=== PATIENT | female | born 1945 | race Caucasian/White ===

== ENCOUNTER 2016-12-29 12:30 | Outpatient (CLI) | payer MEDICARE, BC | END 2016-12-29 12:31 | disposition home or self-care (01) | DX: E11.9 Type 2 diabetes mellitus without complications (principal) ==

== ENCOUNTER 2017-01-27 14:32 | Outpatient (CLI) | payer MEDICARE, BC | END 2017-01-27 14:33 | disposition home or self-care (01) | DX: Z12.31 Encounter for screening mammogram for malignant neoplasm of breast (principal) ==

== ENCOUNTER 2017-11-10 12:47 | Emergency (ER) | payer MEDICARE, BC ==
[2017-11-10 13:05] LABS: BASOPHILS # (AUTO) 0.1 10^3/uL (0.0-0.1); BASOPHILS % (AUTO) 0.8 %; EOSINOPHILS # (AUTO) 0.2 10^3/uL (0.0-0.7); EOSINOPHILS % (AUTO) 1.2 %; HGB - HEMOGLOBIN 12.8 g/dL (12.0-16.0); LYMPHOCYTES % (AUTO) 14.4 %; MEAN CORPUSCULAR HEMOGLOBIN 30.8 pg (27.0-31.0); MEAN CORPUSCULAR HGB CONC 34.2 g/dL (32.0-36.0); MEAN PLATELET VOLUME 6.6 fL (7.9-10.8); MONOCYTES # (AUTO) 0.8 10^3/uL (0.0-1.0); MONOCYTES % (AUTO) 5.6 %; PLT - PLATELET COUNT 346 10^3/uL (130-450); RED BLOOD COUNT 4.16 10^6/uL (4.20-5.40); RED CELL DISTRIBUTION WIDTH 13.3 % (12.0-15.0); WHITE BLOOD COUNT 14.1 x10^3/uL (4.8-10.8)
[2017-11-10] MEDS ORDERED: MORPHINE 10 MG/ML VIAL IVP STA (13:14)
--- NOTE | 2017-11-10 13:14 | ED Physician Documentation ---
PD HPI CHEST PAIN - Stated complaint Stated Complaint: CHEST PX - Chief complaint Chief Complaint: Cardiac - History obtained from History obtained from: Patient, Family - History of Present Illness Timing - onset: How many days ago (2) Timing - onset during: Rest Timing - duration: Days (2) Timing - details: Gradual onset Pain level max: 7 Pain level now: 7 Quality: Aching, Dull Location: Substernal, Left chest Radiation: Other (L shoulder) Improved by: Rest Worsened by: Inspiration, Movement, Palpation Associated symptoms: Shortness of air (mild). No: Diaphoresis, Nausea, Vomiting , Feeling faint / dizzy, General Weakness, Palpitations, Cough Similar symptoms before: Has not had sx before Recently seen: Not recently seen - Additional information Additional information: states has had rhinorrhea and congestion recently. Patient is a non-smoker. No recent travel. No recent surgery or immobilization. Review of Systems Ten Systems: 10 systems reviewed and negative Constitutional: denies: Fever, Chills Ears: denies: Ear pain Nose: reports: Rhinorrhea / runny nose, Congestion Throat: denies: Sore throat GI: denies: Abdominal Pain, Nausea, Vomiting, Diarrhea Skin: denies: Rash Musculoskeletal: denies: Neck pain, Back pain Neurologic: denies: Focal weakness, Numbness, Headache PD PAST MEDICAL HISTORY - Past Medical History Cardiovascular: None Respiratory: Sleep apnea, CPAP use Neuro: None Endocrine/Autoimmune: None GI: GERD : None HEENT: None Psych: None Musculoskeletal: Gout, Other Derm: None - Past Surgical History 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 - Present Medications Home Medications: Ambulatory Orders Medication Instructions Recorded Confirmed Febuxostat [Uloric] 40 mg PO DAILY 04/27/13 11/10/17 Naproxen [Naprosyn] 250 mg PO DAILY PRN 04/27/13 11/10/17 Nebivolol HCl [Bystolic] 10 mg PO DAILY 04/27/13 11/10/17 Esomeprazole [NexIUM] 20 mg PO DAILY 07/03/13 11/10/17 Ranitidine HCl [Zantac] 150 mg PO DAILY 07/03/13 11/10/17 Escitalopram Oxalate [Lexapro] 20 mg PO DAILY 03/18/15 11/10/17 Meloxicam [Mobic] 7.5 mg PO BID PRN #20 tablet 11/10/17 - Allergies Allergies/Adverse Reactions: Allergies Allergy/AdvReac Type Severity Reaction Status Date / Time colchicine Allergy Severe Diarrhea Verified 11/10/17 12:57 Penicillins Allergy Intermediate Rash/Swelli Verified 11/10/17 12:57 ng sulfamethoxazole Allergy Intermediate Rash Verified 11/10/17 12:57 [From Bactrim] trimethoprim [From Bactrim] Allergy Intermediate Rash Verified 11/10/17 12:57 Gadolinium-Containing AdvReac Severe Nausea/Vomi Verified 11/10/17 12:57 Contrast Medi ting - Social History Does the pt smoke?: No Smoking Status: Never smoker PD ED PE NORMAL - Vitals Vital signs reviewed: Yes - General General: Alert and oriented X 3, No acute distress - HEENT HEENT: PERRL, Ears normal, Moist mucous membranes, Pharynx benign - Neck Neck: Supple, no meningeal sign, No JVD, No bruit - Cardiac Cardiac: RRR, Strong equal pulses - Respiratory Respiratory: No respiratory distress, Clear bilaterally - Abdomen Abdomen: Soft, Non tender, Non distended - Derm Derm: Warm and dry - Extremities Extremities: No edema, No calf tenderness / cord - Neuro Neuro: Alert and oriented X 3 - Psych Psych: Normal mood, Normal affect Results - Vitals Vitals: Vital Signs - 24 hr 11/10/17 11/10/17 12:52 13:47 Temperature 36.2 C L Heart Rate 81 78 Respiratory 22 18 Rate Blood Pressure 188/92 H 136/75 H O2 Saturation 96 95 Oxygen O2 Source Room air - EKG (time done) 1255 Rate: Rate (enter#) (82) Rhythm: NSR [place]: Normal Intervals: Normal OR QRS: Normal Ischemia: Normal ST segments - Labs Labs: Laboratory Tests 11/10/17 11/10/17 11/10/17 12:55 12:55 12:55 WBC 14.1 H RBC 4.16 L Hgb 12.8 Hct 37.5 MCV 90.0 MCH 30.8 MCHC 34.2 RDW 13.3 Plt Count 346 MPV 6.6 L Neut # 11.0 H Lymph # 2.0 [place] # 0.8 Eos # 0.2 Baso # 0.1 Absolute Nucleated RBC 0.01 Nucleated RBC % 0.0 D-Dimer Sodium 136 Potassium 4.2 Chloride 104 Carbon Dioxide 20 L Anion Gap 12.0 BUN 21 H Creatinine 1.1 H Estimated GFR (MDRD) 49 L Glucose 192 H Calcium 9.5 Total Bilirubin 0.5 AST 25 ALT 24 Alkaline Phosphatase 63 Troponin I < 0.04 Total Protein 7.6 Albumin 4.4 Globulin 3.2 Albumin/Globulin Ratio 1.4 Lipase 40 11/10/17 13:30 WBC RBC Hgb Hct MCV MCH MCHC RDW Plt Count MPV Neut # Lymph # [place] # Eos # Baso # Absolute Nucleated RBC Nucleated RBC % D-Dimer 248.5 Sodium Potassium Chloride Carbon Dioxide Anion Gap BUN Creatinine Estimated GFR (MDRD) Glucose Calcium Total Bilirubin AST ALT Alkaline Phosphatase Troponin I Total Protein Albumin Globulin Albumin/Globulin Ratio Lipase - Rads (name of study) cxr Radiology: Prelim report reviewed, EMP read contemporaneously, See rad report ( no acute disease) PD MEDICAL DECISION MAKING - ED course Complexity details: reviewed results, re-evaluated patient, considered differential (No ST elevation NE, no aortic dissection, no PE, no tension pneumothorax, no aortic aneurysm), d/w patient, d/w family ED course: Patient is a 72-year-old female presents to the emergency department with atypical chest pain for the past 2 days. Pain resolved with morphine, though still some pain with movement. We will place her on Mobic for home and follow- up with her doctor. No evidence of acute coronary syndrome, pulmonary embolus, aortic dissection, aortic aneurysm or pulmonary embolus. No pneumothorax. Patient counseled regarding signs and symptoms for which I believe and urgent re -evaluation would be necessary. Patient with good understanding of and agreement to plan and is comfortable going home at this time This document was made in part using voice recognition software. While efforts are made to proofread this document, sound alike and grammatical errors may occur. Departure - Departure Disposition: 01 Home, Self Care Clinical Impression: Atypical chest pain Condition: Good Instructions: ED Chest Pain Atypical Unkn Cause Follow-Up: Donnie Bush DO [Primary Care Provider] - Within 1 week Prescriptions: Meloxicam [Mobic] 7.5 mg PO BID PRN #20 tablet PRN Reason: Pain Comments: The cause of your pain is unclear today. Return if you worsen. Try the mobic instead of your naprosyn and see if this helps your pain. Discharge Date/Time: 11/10/17 15:00
[2017-11-10 13:23] LABS: ALBUMIN 4.4 g/dL (3.2-5.5); ALBUMIN/GLOBULIN RATIO 1.4 (1.0-2.2); BILIRUBIN,TOTAL 0.5 mg/dL (0.2-1.0); CALCIUM 9.5 mg/dL (8.5-10.3); CREATININE 1.1 mg/dL (0.4-1.0); TOTAL PROTEIN 7.6 g/dL (6.7-8.2)
--- NOTE | 2017-11-10 13:26 | XRAY Report ---
EXAM: CHEST RADIOGRAPHY EXAM DATE: 11/10/2017 01:09 PM. CLINICAL HISTORY: Chest pain. COMPARISON: None. TECHNIQUE: 1 view. FINDINGS: Lungs/Pleura: No definite localized infiltrate, consolidation, effusion, or pneumothorax. Mediastinum: Mild cardiomegaly. Tortuous and ectatic aorta. Upper lobe vessels not distended. Other: Degenerative changes. IMPRESSION: No acute disease. [facility] Referring Provider Line: [phone] SITE ID: [id number]
[2017-11-10 13:50] VITALS: BP 136/75
== END 2017-11-10 15:00 | disposition home or self-care (01) ==
LOC: ED 12:47
DX: R07.89 Other chest pain (principal)
CPT/HCPCS: 36415; 71045; 80053; 83690; 84484; 85025; 85379; 93005; 96374; 99283; 99284

== ENCOUNTER 2018-01-24 07:16 | Outpatient (CLI) | payer MEDICARE, BC ==
[2018-01-24 12:44] LABS: BASOPHILS # (AUTO) 0.1 10^3/uL (0.0-0.1); EOSINOPHILS # (AUTO) 0.2 10^3/uL (0.0-0.7); EOSINOPHILS % (AUTO) 3.4 %; HGB - HEMOGLOBIN 12.7 g/dL (12.0-16.0); LYMPHOCYTES # (AUTO) 1.6 10^3/uL (1.5-3.5); LYMPHOCYTES % (AUTO) 22.1 %; MEAN CORPUSCULAR HEMOGLOBIN 31.2 pg (27.0-31.0); MEAN CORPUSCULAR HGB CONC 34.3 g/dL (32.0-36.0); MEAN CORPUSCULAR VOLUME 90.9 fL (81.0-99.0); MONOCYTES # (AUTO) 0.6 10^3/uL (0.0-1.0); MONOCYTES % (AUTO) 8.5 %; NEUTROPHILS # (AUTO) 4.7 10^3/uL (1.5-6.6); PLT - PLATELET COUNT 274 10^3/uL (130-450); RED BLOOD COUNT 4.07 10^6/uL (4.20-5.40); RED CELL DISTRIBUTION WIDTH 13.5 % (12.0-15.0); WHITE BLOOD COUNT 7.2 x10^3/uL (4.8-10.8)
[2018-01-24 13:25] LABS: THYROID STIMULATING HORMONE 2.22 uIU/mL (0.34-5.60)
[2018-01-24 13:36] LABS: HB2 TOTAL 13.5 g/dL; HEMOGLOBIN A1C 0.68 g/dL; HEMOGLOBIN A1C % 6.8 % (4.6-6.2)
[2018-01-24 13:43] LABS: ALBUMIN 4.5 g/dL (3.2-5.5); ALBUMIN/GLOBULIN RATIO 1.9 (1.0-2.2); ALKALINE PHOSPHATASE 39 IU/L (42-121); ALT ALANINE AMINOTRANSFERASE 29 IU/L (10-60); AST ASPARTATE AMINOTRANSFERASE 29 IU/L (10-42); BILIRUBIN,TOTAL 0.4 mg/dL (0.2-1.0); BUN - BLOOD UREA NITROGEN 15 mg/dL (6-20); CALCIUM 9.4 mg/dL (8.5-10.3); CARBON DIOXIDE - CO2 20 mmol/L (21-32); CHLORIDE 107 mmol/L (101-111); CHOL/HDL RATIO 4.9 (<4.4); CHOLESTEROL 221 mg/dL; GFR - MDRD 54 (>89); GLUCOSE 166 mg/dL (70-100); HDL CHOLESTEROL 45 mg/dL; LDL CHOLESTEROL,CALCULATED 123 mg/dL; LDL/HDL RATIO 2.7 (<4.4); SODIUM 136 mmol/L (135-145); TOTAL PROTEIN 6.9 g/dL (6.7-8.2); VLDL CHOLESTEROL 53 mg/dL
== END 2018-01-24 07:17 | disposition home or self-care (01) ==
LOC: LAB.WCP 07:16
PROVIDERS: ATTEND Family Medicine
DX: I10 Essential (primary) hypertension (principal); E11.9 Type 2 diabetes mellitus without complications; E78.5 Hyperlipidemia, unspecified; M18.11 Unilateral primary osteoarthritis of first carpometacarpal joint, right hand
CPT/HCPCS: 36415; 80053; 80061; 82607; 83036; 83721; 84443; 85025

== ENCOUNTER 2018-02-21 12:44 | Outpatient (CLI) | payer MEDICARE, BC ==
--- NOTE | 2018-02-22 10:23 | Mammography Report ---
DIGITAL SCREENING MAMMOGRAM: 02/21/2018 CLINICAL INDICATION: A 72-year-old for screening. COMPARISON: 01/2017, 03/2015, 03/2014, 11/2012, 09/2011, 08/2010. TECHNIQUE: Routine CC and MLO projections were obtained of the breasts. FINDINGS: The breasts again demonstrate scattered fibroglandular densities bilaterally. Coarse and punctate, typically benign calcifications are present. No suspicious masses, clustered microcalcifications, or regions of architectural distortion are identified. IMPRESSION: BENIGN FINDINGS. RECOMMENDATION: Routine annual screening unless otherwise clinically indicated. BIRADS CATEGORY 2 - BENIGN FINDINGS. STANDARD QUALIFYING STATEMENTS: 1. This examination was reviewed with the aid of Computer-Aided Detection (CAD). 2. A negative or benign imaging report should not delay biopsy if clinically suspicious findings are present. Consider surgical consultation if warranted. More than 5% of cancers are not identified by imaging. 3. Dense breasts may obscure an underlying neoplasm. TD: 02/22/2018 10:22
== END 2018-02-21 12:45 | disposition home or self-care (01) ==
LOC: DI 12:44
PROVIDERS: ATTEND Family Medicine
DX: Z12.31 Encounter for screening mammogram for malignant neoplasm of breast (principal)
CPT/HCPCS: 77067

== ENCOUNTER 2018-02-21 12:47 | Outpatient (CLI) | payer MEDICARE, BC ==
--- NOTE | 2018-02-21 16:05 | DEXA Report ---
DEXA SCAN: 02/21/2018 CLINICAL INDICATION: Postmenopausal. TECHNIQUE: Dual energy x-ray absorptiometry (DXA) was performed on a [employer] system. Regions measured are the AP spine, femoral neck, and, if needed, forearm. COMPARISON: None. In accordance with the International Society for Clinical Densitometry (ISCD) guidelines, data from previous exams may be reanalyzed using current recommendations and techniques. This is done to allow a more accurate basis for comparison with the current study. FINDINGS Data for the lumbar spine is as follows: REGION BMD (g/cm/cm) T-SCORE Z-SCORE L1 1.686 4.6 5.6 L2 1.656 3.8 4.8 L3 1.460 2.2 3.1 L4 1.528 2.7 3.7 L1-L4 1.578 3.3 4.3 L2-L4 1.547 2.9 3.9 NOTE: All evaluable vertebrae are used for classification. Data for the hip is as follows: REGION BMD (g/cm/cm) T-SCORE Z-SCORE Neck 1.044 0.0 1.5 TOTAL 1.192 1.5 2.6 NOTE: The femoral neck or total proximal femur, whichever is lowest, is used for classification. IMPRESSION WHO CLASSIFICATION BASED ON THE INTERNATIONAL REFERENCE STANDARD IS NORMAL. FRACTURE RISK IS NOT INCREASED. RECOMMENDATION: Patients with diagnosis of osteoporosis or osteopenia should have regular bone mineral density assessment. For those eligible for Medicare, routine testing is allowed once every 2 years. Testing frequency can be increased for patients who have rapidly progressing disease or for those who are receiving medical therapy to restore bone mass. COMMENT World Health Organization (WHO) definitions for osteoporosis and osteopenia: NORMAL BMD: T-score at 1.0 or higher, fracture risk is low. OSTEOPENIA BMD: T-score between 1.0 and -2.5, fracture risk is increased. OSTEOPOROSIS BMD: T-score at 2.5 or lower, fracture risk high. National Osteoporosis Foundation recommends: 1. Obtain adequate dietary calcium (at least 1200 mg per day) and vitamin D (400 -800 international units per day). 2. Participate, as appropriate, in regular weightbearing and muscle- strengthening exercise. 3. Avoid tobacco use and reduce alcohol and caffeine intake. 4. For more detailed information see the website at www.NOF.org. TD: 02/21/2018 15:05 MTDKaya
== END 2018-02-21 12:48 | disposition home or self-care (01) ==
LOC: DI 12:47
PROVIDERS: ATTEND Family Medicine
DX: Z78.0 Asymptomatic menopausal state (principal)
CPT/HCPCS: 77080

== ENCOUNTER → 2018-09-19 | Outpatient (CLI) | payer MEDICARE, BC ==
[2018-09-19 13:10] LABS: BASOPHILS % (AUTO) 0.6 %; EOSINOPHILS # (AUTO) 0.2 10^3/uL (0.0-0.7); EOSINOPHILS % (AUTO) 3.3 %; HGB - HEMOGLOBIN 12.9 g/dL (12.0-16.0); LYMPHOCYTES # (AUTO) 1.7 10^3/uL (1.5-3.5); LYMPHOCYTES % (AUTO) 23.4 %; MEAN CORPUSCULAR HEMOGLOBIN 31.4 pg (27.0-31.0); MEAN CORPUSCULAR HGB CONC 33.4 g/dL (32.0-36.0); MEAN CORPUSCULAR VOLUME 93.8 fL (81.0-99.0); MEAN PLATELET VOLUME 7.5 fL (7.9-10.8); MONOCYTES # (AUTO) 0.6 10^3/uL (0.0-1.0); MONOCYTES % (AUTO) 8.6 %; NEUTROPHILS # (AUTO) 4.7 10^3/uL (1.5-6.6); NEUTROPHILS % (AUTO) 64.1 %; PLT - PLATELET COUNT 322 10^3/uL (130-450); RED BLOOD COUNT 4.12 10^6/uL (4.20-5.40); RED CELL DISTRIBUTION WIDTH 13.4 % (12.0-15.0); WHITE BLOOD COUNT 7.4 x10^3/uL (4.8-10.8)
[2018-09-19 13:55] LABS: ALBUMIN 4.4 g/dL (3.2-5.5); ALBUMIN/GLOBULIN RATIO 1.7 (1.0-2.2); ALKALINE PHOSPHATASE 47 IU/L (42-121); ALT ALANINE AMINOTRANSFERASE 25 IU/L (10-60); AST ASPARTATE AMINOTRANSFERASE 26 IU/L (10-42); BILIRUBIN,TOTAL 0.5 mg/dL (0.2-1.0); BUN - BLOOD UREA NITROGEN 18 mg/dL (6-20); CALCIUM 9.4 mg/dL (8.5-10.3); CARBON DIOXIDE - CO2 22 mmol/L (21-32); CHLORIDE 107 mmol/L (101-111); CHOL/HDL RATIO 3.6 (<4.4); CHOLESTEROL 161 mg/dL; CREATININE 1.1 mg/dL (0.4-1.0); GFR - MDRD 48 (>89); GLUCOSE 185 mg/dL (70-100); HDL CHOLESTEROL 45 mg/dL; LDL CHOLESTEROL,CALCULATED 74 mg/dL; LDL/HDL RATIO 1.6 (<4.4); SODIUM 138 mmol/L (135-145); VLDL CHOLESTEROL 42 mg/dL
[2018-09-19 13:57] LABS: HB2 TOTAL 13.5 g/dL; HEMOGLOBIN A1C 0.72 g/dL
== END ==
LOC: LAB.WCP 08:00
PROVIDERS: ATTEND Family Medicine
DX: E11.9 Type 2 diabetes mellitus without complications (principal)
CPT/HCPCS: 36415; 80053; 80061; 82043; 83036; 83721; 85025

== ENCOUNTER 2019-03-02 07:03 | Day surgery (SDC) | payer MEDICARE, BC ==
[~2019-03-02 07:03] MED LIST: CYCLOPENTOLATE 1% OPHTH DROPS 2 ML ONE; KETOROLAC 0.45% OPHTH DROPS ONE; PHENYLEPHRINE 2.5% OPHTH 2 ML DROPS ONE; PROPARACAINE 0.5% OPHTH DROPS 15 ML ONE
[2019-03-02] MEDS ORDERED: LACTATED RINGERS 500 ML IV ONE (07:22)
[2019-03-02] MEDS ORDERED: KETOROLAC 0.45% OPHTH DROPS RIGHTEYE ONE (07:30)
[2019-03-02] MEDS ORDERED: CYCLOPENTOLATE 1% OPHTH DROPS 2 ML RIGHTEYE ONE (07:30)
[2019-03-02] MEDS ORDERED: PHENYLEPHRINE 2.5% OPHTH 2 ML DROPS RIGHTEYE ONE (07:30)
[2019-03-02] MEDS ORDERED: PROPARACAINE 0.5% OPHTH DROPS 15 ML RIGHTEYE ONE (07:30)
--- NOTE | 2019-03-02 07:58 | ANESTHESIA ---
Pre-Anesthesia VS, & Labs - Diagnosis Right senile combined cataract - Procedure Right phaco with IOL implant Vital Signs: Temp Pulse Resp BP Pulse Ox 36.9 C 74 15 142/86 H 94 03/02/19 07:22 03/02/19 07:22 03/02/19 07:22 03/02/19 07:22 03/02/19 07:22 Height 5 ft 4 in Weight (kg) 89 kg Body Mass Index 30.9 - NPO >8 hours - Is Patient ?: No - Lab Results Current Lab Results: Laboratory Tests 03/02/19 07:34: POC Whole Bld Glucose 258 H Lab results reviewed: No Home Medications and Allergies Home Medications: Ambulatory Orders Nebivolol HCl [Bystolic] 10 mg PO DAILY 03/01/19 Pravastatin Sodium 20 mg PO DAILY 03/01/19 buPROPion [Wellbutrin Xl] 300 mg PO DAILY 03/01/19 Febuxostat [Uloric] 40 mg PO DAILY 04/27/13 Nebivolol HCl [Bystolic] 10 mg PO DAILY 04/27/13 Esomeprazole [NexIUM] 20 mg PO DAILY 07/03/13 Ranitidine HCl [Zantac] 150 mg PO DAILY 07/03/13 Escitalopram Oxalate [Lexapro] 20 mg PO DAILY 03/18/15 Nebivolol HCl [Bystolic] 10 mg PO DAILY 03/01/19 Pravastatin Sodium 20 mg PO DAILY 03/01/19 buPROPion [Wellbutrin Xl] 300 mg PO DAILY 03/01/19 Allergies/Adverse Reactions: Allergies Allergy/AdvReac Type Severity Reaction Status Date / Time colchicine Allergy Severe Diarrhea Verified 11/10/17 12:57 Penicillins Allergy Intermediate Rash/Swelli Verified 11/10/17 12:57 ng sulfamethoxazole Allergy Intermediate Rash Verified 11/10/17 12:57 [From Bactrim] trimethoprim [From Bactrim] Allergy Intermediate Rash Verified 11/10/17 12:57 Gadolinium-Containing AdvReac Severe Nausea/Vomi Verified 11/10/17 12:57 Contrast Medi ting Anes History & Medical History - Anesthetic History Anesthesia Complications: reports: No previous complications Family history of Anesthesia Complications: Denies Family history of Malignant Hyperthermia: Denies - Medical History Cardiovascular: reports: Hypertension, High cholesterol Pulmonary: reports: Shortness of breath, Sleep apnea, CPAP use Gastrointestinal: reports: GERD Urinary: reports: None Neuro: reports: None Musculoskeletal: reports: None, Gout, Other Endocrine/Autoimmune: reports: None Blood Disorders: reports: None Skin: reports: None Smoking Status: Never smoker Psychosocial: reports: No issues indicated - Surgical History General: Cholecystectomy, Other Gynecologic:  Orthopedic: Other (Right humerus) Exam General: Alert, Oriented x3 Dental: Dentures full Upper, Partials Lower Mouth Opening: Greater than 4 Fingerbreadths Neck Mobility: Normal Mallampati classification: II Thyromental Distance: greater than 6 cm Respiratory: Lungs clear Cardiovascular: Regular rate Neurological: Normal gait Mental/Cognitive Status: Alert/Oriented X3 Cognitive Status: Within normal limits Plan Anesthesia Type: MAC Consent for Procedure(s) Verified and Reviewed: Yes Code Status: Attempt Resuscitation ASA classification: 2-Mild systemic disease Is this case an emergency?: No
[2019-03-02] MEDS ORDERED: fentaNYL 100 MCG/2 ML VIAL IVP ONE (08:30)
[2019-03-02] MEDS ORDERED: MIDAZOLAM 2 MG/2 ML VIAL IVP ONE (08:30)
[2019-03-02] MEDS ORDERED: TRIAMCIN/MOXIFLOX OPHTHALMIC 0.6 ML VIAL IO ONE ×2 (08:40)
[2019-03-02] MEDS ORDERED: CHONDR SULF/HYALURONATE SYRINGE IO ONE (08:40)
[2019-03-02] MEDS ORDERED: EPINEPHrine 1 MG/ML AMP IVP ONE (08:40)
[2019-03-02] MEDS ORDERED: VANCOMYCIN OPHTHALMI 8MG/0.8ML 8 MG/0.8 ML SYRINGE IO ONE ×2 (08:40)
[2019-03-02] MEDS ORDERED: TIMOLOL 0.5% OPHTH DROPS RIGHTEYE ONE (08:40)
[2019-03-02] MEDS ORDERED: BSS/LIDOCAINE/EPINEPHRINE 1 ML SYRINGE IO ONE ×2 (08:40)
[2019-03-02] MEDS ORDERED: BRIMONIDINE 0.2% OPHTH DROPS 5 ML OPTH ONE (08:40)
[2019-03-02 08:58] VITALS: BP 122/57
--- NOTE | 2019-03-02 10:42 | OPERATIVE REPORT ---
DATE OF SERVICE: 03/02/2019 Physician: Roman Stout MD PREOPERATIVE DIAGNOSIS: Visually significant cataract, right eye. This was her first cataract surge ry. POSTOPERATIVE DIAGNOSIS: Visually significant cataract, right eye. This was her first with surgery. DESCRIPTION OF PROCEDURE: Phacoemulsification with posterior chamber intraocular lens implant, right eye. SURGEON: Roman Stout MD ANESTHESIA: Monitored anesthesia care. COMPLICATIONS: None. OPERATIVE INDICATIONS: This is a 73-year-old woman with progressive vision loss in the right eye due to 2+ nuclear sclerotic and 2 to 3+ cortical cataract. Best corrected visual acuity was 20/25, with glare to hand motion vision in the right eye. Indications for surgery are overall decrease in visio n, difficulty seeing words on the computer screen, difficulty reading, difficulty seeing words, close d captions or game scores on TV, difficulty seeing street signs, difficulty driving in low light or a t night, difficulty driving at night because of headlights from other vehicles, and difficulty with g lare and bright lights in any situation. She was consented at length concerning risks and benefits o f cataract surgery, after which she expressed a desire to proceed with surgery. OPERATIVE PROCEDURE: The patient was taken to OR #3 and placed under monitored anesthesia care. A s urgical timeout was conducted confirming the correct patient, correct procedure, and correct surgical site. She was given topical anesthesia, then prepped and draped in the usual sterile fashion. The eye was entered at the 12 and 9 o'clock positions. Intracameral Shugarcaine was injected into the an terior chamber, followed by Viscoat. A continuous-tear curvilinear capsulorrhexis was performed. Th e nucleus was hydrodissected and phacoemulsified. The cortex was evacuated using automated infusion and aspiration. Provisc was injected into the capsular bag, and a 21.0 diopter intraocular lens inse rted in the bag. Approximately 0.8 mL of a mixture of triamcinolone moxifloxacin and vancomycin was injected subconjunctivally at the superior quadrant for infection and inflammation prophylaxis. I an d A was used to evacuate the viscoelastic materials. The eye was inflated to physiologic pressure us ing balanced salt solution and found to be watertight. The patient was taken from the operating room in good condition and given postoperative instructions. TD: 03/02/2019 09:55
== END 2019-03-02 07:04 | disposition home or self-care (01) ==
LOC: SDS 07:03
PROVIDERS: ATTEND Ophthalmology
PROC: 08RJ3JZ Replacement of Right Lens with Synthetic Substitute, Percutaneous Approach (ICD-10-PCS; principal; 2019-03-02 08:30)
DX: H25.811 Combined forms of age-related cataract, right eye (principal); I10 Essential (primary) hypertension; E11.9 Type 2 diabetes mellitus without complications; G47.33 Obstructive sleep apnea (adult) (pediatric); K21.9 Gastro-esophageal reflux disease without esophagitis
CPT/HCPCS: 66984; A9270; J3490; V2632

== ENCOUNTER 2019-03-14 07:11 | Outpatient (CLI) | payer MEDICARE, BC ==
[2019-03-14 12:30] LABS: BASOPHILS # (AUTO) 0.1 10^3/uL (0.0-0.1); BASOPHILS % (AUTO) 0.8 %; EOSINOPHILS # (AUTO) 0.3 10^3/uL (0.0-0.7); EOSINOPHILS % (AUTO) 3.1 %; HGB - HEMOGLOBIN 12.8 g/dL (12.0-16.0); LYMPHOCYTES # (AUTO) 1.6 10^3/uL (1.5-3.5); LYMPHOCYTES % (AUTO) 17.5 %; MEAN CORPUSCULAR HEMOGLOBIN 30.4 pg (27.0-31.0); MEAN CORPUSCULAR HGB CONC 32.6 g/dL (32.0-36.0); MEAN CORPUSCULAR VOLUME 93.4 fL (81.0-99.0); MEAN PLATELET VOLUME 7.2 fL (7.9-10.8); MONOCYTES # (AUTO) 0.8 10^3/uL (0.0-1.0); MONOCYTES % (AUTO) 8.8 %; NEUTROPHILS # (AUTO) 6.3 10^3/uL (1.5-6.6); NEUTROPHILS % (AUTO) 69.8 %; PLT - PLATELET COUNT 333 10^3/uL (130-450); RED CELL DISTRIBUTION WIDTH 13.4 % (12.0-15.0)
[2019-03-14 13:22] LABS: ALBUMIN 4.1 g/dL (3.2-5.5); ALBUMIN/GLOBULIN RATIO 1.4 (1.0-2.2); ALKALINE PHOSPHATASE 46 IU/L (42-121); ALT ALANINE AMINOTRANSFERASE 21 IU/L (10-60); AST ASPARTATE AMINOTRANSFERASE 24 IU/L (10-42); BILIRUBIN,TOTAL 0.5 mg/dL (0.2-1.0); BUN - BLOOD UREA NITROGEN 24 mg/dL (6-20); CALCIUM 9.7 mg/dL (8.5-10.3); CARBON DIOXIDE - CO2 20 mmol/L (21-32); CHLORIDE 105 mmol/L (101-111); CHOL/HDL RATIO 4.1 (<4.4); CHOLESTEROL 173 mg/dL; CREATININE 1.1 mg/dL (0.4-1.0); GFR - MDRD 48 (>89); GLUCOSE 231 mg/dL (70-100); HDL CHOLESTEROL 42 mg/dL; LDL CHOLESTEROL,CALCULATED 82 mg/dL; SODIUM 137 mmol/L (135-145); URIC ACID 5.2 mg/dL (2.6-7.2); VLDL CHOLESTEROL 49 mg/dL
[2019-03-14 13:34] LABS: HB2 TOTAL 13.4 g/dL; HEMOGLOBIN A1C 0.78 g/dL; HEMOGLOBIN A1C % 7.5 % (4.6-6.2)
== END 2019-03-14 07:12 | disposition home or self-care (01) ==
LOC: LAB.WCP 07:11
PROVIDERS: ATTEND Family Medicine
DX: E11.9 Type 2 diabetes mellitus without complications (principal)
CPT/HCPCS: 36415; 80053; 80061; 83036; 83721; 84443; 84550; 85025

== ENCOUNTER 2019-03-23 13:34 | Outpatient (CLI) | payer MEDICARE, BC ==
[2019-03-27 19:27] LABS: ANA SCREEN POSITIVE (NEGATIVE)
== END 2019-03-23 13:35 | disposition home or self-care (01) ==
LOC: LAB.WCP 13:34
PROVIDERS: ATTEND Family Medicine
DX: R94.138 Abnormal results of other function studies of peripheral nervous system (principal); Z13.89 Encounter for screening for other disorder
CPT/HCPCS: 36415; 82550; 85651; 86038; 86140; 86765

== ENCOUNTER 2019-04-06 06:32 | Day surgery (SDC) | payer MEDICARE, BC ==
[2019-04-06] MEDS ORDERED: KETOROLAC 0.45% OPHTH DROPS ONE (06:37)
[2019-04-06] MEDS ORDERED: PHENYLEPHRINE 2.5% OPHTH 2 ML DROPS ONE (06:37)
[2019-04-06] MEDS ORDERED: PROPARACAINE 0.5% OPHTH DROPS 15 ML ONE (06:38)
[2019-04-06] MEDS ORDERED: CYCLOPENTOLATE 1% OPHTH DROPS 2 ML ONE (06:38)
[2019-04-06] MEDS ORDERED: LACTATED RINGERS 500 ML IV ONE (07:03)
[2019-04-06] MEDS ORDERED: PROPARACAINE 0.5% OPHTH DROPS 15 ML LEFTEYE ONE ×2 (07:05→08:01)
[2019-04-06] MEDS ORDERED: PHENYLEPHRINE 2.5% OPHTH 2 ML DROPS LEFTEYE ONE (07:05)
[2019-04-06] MEDS ORDERED: KETOROLAC 0.45% OPHTH DROPS LEFTEYE ONE (07:05)
[2019-04-06] MEDS ORDERED: CYCLOPENTOLATE 1% OPHTH DROPS 2 ML LEFTEYE ONE (07:05)
[2019-04-06] MEDS ORDERED: BRIMONIDINE 0.2% OPHTH DROPS 5 ML ONE (07:12)
[2019-04-06] MEDS ORDERED: TIMOLOL 0.5% OPHTH DROPS ONE (07:12)
[2019-04-06] MEDS ORDERED: BSS/LIDOCAINE/EPINEPHRINE 1 ML SYRINGE ONE (07:12)
[2019-04-06] MEDS ORDERED: TRIAMCIN/MOXIFLOX OPHTHALMIC 0.6 ML VIAL IO ONE ×2 (07:12→08:01)
[2019-04-06] MEDS ORDERED: VANCOMYCIN OPHTHALMI 8MG/0.8ML 8 MG/0.8 ML SYRINGE IO ONE ×2 (07:12→08:01)
--- NOTE | 2019-04-06 07:17 | ANESTHESIA ---
Pre-Anesthesia VS, & Labs - Diagnosis left nuclear sclerotic cataract - Procedure left cataract extraction with intraocular lens implant Vital Signs: Temp Pulse Resp BP Pulse Ox 36.5 C 79 18 148/80 H 95 04/06/19 07:04 04/06/19 07:04 04/06/19 07:04 04/06/19 07:04 04/06/19 07:04 Height 5 ft 4 in Weight (kg) 89 kg Body Mass Index 30.9 - NPO >8 hours - Is Patient ?: Not Applicable Home Medications and Allergies Febuxostat [Uloric] 40 mg PO DAILY 04/27/13 Ranitidine HCl [Zantac] 150 mg PO DAILY 07/03/13 Escitalopram Oxalate [Lexapro] 20 mg PO DAILY 03/18/15 Nebivolol HCl [Bystolic] 10 mg PO DAILY 03/01/19 Pravastatin Sodium 20 mg PO DAILY 03/01/19 buPROPion [Wellbutrin Xl] 300 mg PO DAILY 03/01/19 Allergies/Adverse Reactions: Allergies Allergy/AdvReac Type Severity Reaction Status Date / Time colchicine Allergy Severe Diarrhea Verified 11/10/17 12:57 Penicillins Allergy Intermediate Rash/Swelli Verified 11/10/17 12:57 ng sulfamethoxazole Allergy Intermediate Rash Verified 11/10/17 12:57 [From Bactrim] trimethoprim [From Bactrim] Allergy Intermediate Rash Verified 11/10/17 12:57 Gadolinium-Containing AdvReac Severe Nausea/Vomi Verified 11/10/17 12:57 Contrast Medi ting Anes History & Medical History - Anesthetic History Anesthesia Complications: reports: No previous complications - Medical History Cardiovascular: reports: Hypertension, High cholesterol Pulmonary: reports: Shortness of breath, Sleep apnea, CPAP use Gastrointestinal: reports: GERD Urinary: reports: None Neuro: reports: None Musculoskeletal: reports: None, Gout, Other Endocrine/Autoimmune: reports: None Blood Disorders: reports: None Skin: reports: None Smoking Status: Never smoker - Surgical History General: Cholecystectomy, Other Gynecologic:  Orthopedic: Other Exam General: Alert Dental: WNL Mouth Opening: Greater than 4 Fingerbreadths Mallampati classification: II Respiratory: Lungs clear Cardiovascular: Regular rate, Normal S1, Normal S2 Mental/Cognitive Status: Alert/Oriented X3 Plan Anesthesia Type: MAC Consent for Procedure(s) Verified and Reviewed: Yes Code Status: Attempt Resuscitation ASA classification: 2-Mild systemic disease Is this case an emergency?: No
[2019-04-06] MEDS ORDERED: CHONDR SULF/HYALURONATE SYRINGE IO ONE (08:00)
[2019-04-06] MEDS ORDERED: BRIMONIDINE 0.2% OPHTH DROPS 5 ML OPTH ONE (08:00)
[2019-04-06] MEDS ORDERED: EPINEPHrine 1 MG/ML AMP IVP ONE (08:00)
[2019-04-06] MEDS ORDERED: BSS/LIDOCAINE/EPINEPHRINE 1 ML SYRINGE IO ONE (08:00)
[2019-04-06] MEDS ORDERED: TIMOLOL 0.5% OPHTH DROPS OPTH ONE (08:00)
[2019-04-06] MEDS ORDERED: fentaNYL 100 MCG/2 ML VIAL IVP ONE (08:08)
[2019-04-06] MEDS ORDERED: MIDAZOLAM 2 MG/2 ML VIAL IVP ONE (08:08)
[2019-04-06 08:31] VITALS: BP 106/83
== END 2019-04-06 06:33 | disposition home or self-care (01) ==
LOC: SDS 06:32
PROVIDERS: ATTEND Ophthalmology
PROC: 08RK3JZ Replacement of Left Lens with Synthetic Substitute, Percutaneous Approach (ICD-10-PCS; principal; 2019-04-06 08:00)
DX: H25.812 Combined forms of age-related cataract, left eye (principal); E11.9 Type 2 diabetes mellitus without complications; I10 Essential (primary) hypertension; H35.3130 Nonexudative age-related macular degeneration, bilateral, stage unspecified; G47.30 Sleep apnea, unspecified; Z87.891 Personal history of nicotine dependence
CPT/HCPCS: 66984; A9270; J3490; V2632

== ENCOUNTER 2019-07-03 09:29 | Outpatient (CLI) | payer MEDICARE, BC ==
--- NOTE | 2019-07-03 10:01 | SLEEP CARE CONSULTATION ---
Information from patient questionnaire entered by Lorraine Jade. I have reviewed and concur with the information entered by Lorraine Jade. This document represents the service I personally performed and the decisions made by me, Thad Garcia MD, [facility]. History of Present Illness Previous diagnosis: Mild, Obstructive Sleep Apnea-Hypopnea Syndrome AHI: 6.5 Reason for CPAP/BiPAP follow up: annual Equipment type: CPAP Equipment obtained from: [facility] Prior sleep studies: Yes Year and Where: 2014 [facility] HPI additional information: HPI: Ms. Dash returned today for annual follow up of nasal CPAP therapy. She was last seen 3 years ago. She was diagnosed to have mild obstructive sleep apnea-hypopnea syndrome. The patient wears with a [employer] nasal cushion mask. She reports using the device nightly and all through the night, averaging 6.9 hours a night. She complained of no particular problem with the device such as soreness on the face, dry nose, epistaxis, nasal congestion or headache. She thinks that the pressure of 7 cmH2O is comfortable. On the CPAP therapy she notices improvement in her sleep quality, and that she wakes up feeling fresher in the morning and more awake/alert during the day. The [place] Sleepiness Scale score 9 Her notices no snore at all. The average residual AHI is 7.2 : and average time in large leak per day is 19 minutes. CPAP Compliance Data - Data Reviewed with Patient Average duration of nightly device use: 6H 50M Compliance rate %: 96.1 Current pressure setting (cmH2O): 7.0 Subjective Patient concerns: reports: dry mouth, nose, throat Initial [place] Sleepiness Scale score: 13 Current [place] Sleepiness Scale score: 9 Allergies and Home Medications Drug allergies reviewed: Yes Review of Systems Review of systems same as previous: Yes Impression and Plan IMPRESSION: 1. Obstructive Sleep Apnea-Hypopnea Syndrome, mild, with the patient doing well on nasal CPAP therapy. She has excellent compliance and significant clinical improvement. The current pressure appears effective and comfortable. Overall, she is very satisfied with treatment and plans to continue with it long-term. No adjustment is necessary today. PLAN: 1. Set device as autoCPAP at 5 - 10 cmH2O. 2. Prescription made for supplies. The patient is considering switching [facility] [employer] supplier. 3. Try the new ResMed N30i mask. 4. Return in one year for follow up or earlier if there is any problem with the treatment. I spent 100% of this 15 minute visit face to face with the patient with greater than 50% of this was spent time counseling the patient and coordination of care.
== END 2019-07-03 09:30 | disposition home or self-care (01) ==
LOC: SC 09:29
PROVIDERS: ATTEND Internal Medicine Pulmonary Disease
DX: G47.33 Obstructive sleep apnea (adult) (pediatric) (principal)
CPT/HCPCS: 99213; G0463; 99212

== ENCOUNTER 2019-07-19 08:00 | Outpatient (CLI) | payer MEDICARE, BC ==
[2019-07-19 12:23] LABS: BASOPHILS # (AUTO) 0.1 10^3/uL (0.0-0.1); BASOPHILS % (AUTO) 0.7 %; EOSINOPHILS # (AUTO) 0.3 10^3/uL (0.0-0.7); EOSINOPHILS % (AUTO) 3.3 %; HGB - HEMOGLOBIN 12.6 g/dL (12.0-16.0); LYMPHOCYTES # (AUTO) 1.4 10^3/uL (1.5-3.5); LYMPHOCYTES % (AUTO) 16.1 %; MEAN CORPUSCULAR HEMOGLOBIN 30.2 pg (27.0-31.0); MEAN CORPUSCULAR HGB CONC 31.8 g/dL (32.0-36.0); MONOCYTES # (AUTO) 0.6 10^3/uL (0.0-1.0); NEUTROPHILS # (AUTO) 6.4 10^3/uL (1.5-6.6); NEUTROPHILS % (AUTO) 72.3 %; PLT - PLATELET COUNT 301 10^3/uL (130-450); RED BLOOD COUNT 4.17 10^6/uL (4.20-5.40); RED CELL DISTRIBUTION WIDTH 13.2 % (12.0-15.0); WHITE BLOOD COUNT 8.9 x10^3/uL (4.8-10.8)
[2019-07-19 12:32] LABS: ALBUMIN 4.4 g/dL (3.2-5.5); ALBUMIN/GLOBULIN RATIO 1.5 (1.0-2.2); BILIRUBIN,TOTAL 0.6 mg/dL (0.2-1.0); CALCIUM 9.7 mg/dL (8.5-10.3); CREATININE 1.2 mg/dL (0.4-1.0); TOTAL PROTEIN 7.4 g/dL (6.7-8.2)
[2019-07-19 12:50] LABS: BILIRUBIN,URINE NEGATIVE (NEGATIVE); GLUCOSE, URINE (UA) NEGATIVE (NEGATIVE); KETONES,URINE (UA) NEGATIVE (NEGATIVE); LEUKOCYTE ESTERASE, URINE TRACE (NEGATIVE); NITRITE,URINE NEGATIVE (NEGATIVE); OCCULT BLOOD,URINE NEGATIVE (NEGATIVE); PH,URINE 5.5 PH (5.0-7.5); PROTEIN,URINE NEGATIVE (NEGATIVE); UROBILINOGEN,URINE 0.2 (NORMAL) E.U./dL (NORMAL)
[2019-07-19 12:52] LABS: CLARITY,URINE CLEAR (CLEAR)
[2019-07-19 13:10] LABS: BACTERIA,URINE Few /HPF (None Seen); RBC,URINE 0-5 /HPF (0-5); SQUAMOUS EPITHELIAL CELL,UR MOD Squamous (<= Few)
== END 2019-07-19 23:59 | disposition home or self-care (01) ==
LOC: LAB.WCP 08:00
PROVIDERS: ATTEND Family Medicine
DX: R10.32 Left lower quadrant pain (principal)
CPT/HCPCS: 36415; 80053; 81001; 81003; 85025; 87086

== ENCOUNTER 2019-07-28 10:45 | Outpatient (CLI) | payer MEDICARE, BC ==
[2019-07-28] MEDS ORDERED: IOVERSOL 320 100 ML VIAL IVP ONE ×2 (11:07→12:17)
[2019-07-28] MEDS ORDERED: IOVERSOL 320 50 ML VIAL ONE (11:07)
--- NOTE | 2019-07-28 15:49 | CT Report ---
Reason: LLQ ABD PAIN Procedure Date: 07/28/2019 Accession Number: [id number] / [id number] Procedure: CT - Abdomen/Pelvis W CPT Code: FULL RESULT: EXAM: CT ABDOMEN AND PELVIS EXAM DATE: 07/28/2019 12:16 PM. CLINICAL HISTORY: LLQ ABD PAIN. COMPARISONS: ABDOMEN/PELVIS W/ 03/14/2013 9:59 AM. TECHNIQUE: Routine helical CT imaging was performed through the abdomen and pelvis. IV contrast: OPTI 320 90ML. Enteric contrast: No. Reconstructions: Coronal and sagittal. In accordance with CT protocol optimization, one or more of the following dose reduction techniques were utilized for this exam: automated exposure control, adjustment of mA and/or KV based on patient size, or use of iterative reconstructive technique. FINDINGS: Lung Bases: No pleural effusion. Liver: Fatty infiltration.. No masses. Gallbladder/Bile Ducts: Post cholecystectomy Spleen: Normal. Pancreas: Normal. Adrenal Glands: Normal. Kidneys: Sub-centimeter left renal low-attenuation , too small to accurately characterize. No masses, stones, or hydronephrosis. Peritoneal Cavity/Bowel: No free fluid, free air or adenopathy. No masses or acute inflammatory process. The appendix is not seen. Minimal colonic diverticulosis. No findings of diverticulitis or bowel obstruction. Pelvic Organs: The bladder and pelvic organs are unremarkable. Trace fluid in the pelvis , . Decreased left ovarian vein size with increased tortuosity compared with 03/14/201304/07 through . Vasculature: No aneurysms atherosclerotic calcification. Bones: Mild degenerative change in the spine. Other: No acute findings noted. IMPRESSION: No acute findings noted to account for left lower quadrant pain. Incidental findings as above. [facility]
== END 2019-07-28 10:46 | disposition home or self-care (01) ==
LOC: DI 10:45
PROVIDERS: ATTEND Family Medicine
DX: R10.32 Left lower quadrant pain (principal)
CPT/HCPCS: 74177; Q9967

== ENCOUNTER 2019-10-24 08:26 | Outpatient (CLI) | payer MEDICARE, BC ==
[2019-10-24 14:53] LABS: HB2 TOTAL 13.6 g/dL; HEMOGLOBIN A1C 0.76 g/dL; HEMOGLOBIN A1C % 7.3 % (4.6-6.2)
== END 2019-10-24 23:59 | disposition home or self-care (01) ==
LOC: LAB.WCP 08:26
PROVIDERS: ATTEND Physician Assistant Medical
DX: E11.9 Type 2 diabetes mellitus without complications (principal)
CPT/HCPCS: 36415; 83036

== ENCOUNTER 2019-10-27 09:27 | Outpatient (CLI) | payer MEDICARE, BC ==
--- NOTE | 2019-10-27 11:56 | XRAY Report ---
Reason: CHRONIC COUGH Procedure Date: 10/27/2019 Accession Number: [id number] / [id number] Procedure: WCP - Chest 2 View X-Ray CPT Code: 47254 Final Report FULL RESULT: EXAM: CHEST RADIOGRAPHY EXAM DATE: 10/27/2019 09:27 AM HISTORY: CHRONIC COUGH COMPARISON: CHEST 1 VIEW 11/10/2017 1:00 PM TECHNIQUE: Two Views FINDINGS: Lungs/Pleura: There is chronic patchy increased density at the left mid to lower lung most likely from scarring. No significant change from the previous exam. Consider CT correlation for better specificity. The right lung appears to be grossly clear. Cardiomediastinal silhouette: Upper limits normal heart size. Other: None. IMPRESSION: Probable scarring at the left mid to lower lung. See above comments. Mild to prominent heart. No new abnormality. [facility]
== END 2019-10-27 23:59 | disposition home or self-care (01) ==
LOC: DI.WCP 09:27
PROVIDERS: ATTEND Family Medicine
DX: R05 Cough (principal)
CPT/HCPCS: 71046

== ENCOUNTER 2020-01-25 08:00 | Outpatient (CLI) | payer MEDICARE, BC ==
[2020-01-25 18:23] LABS: BASOPHILS # (AUTO) 0.1 10^3/uL (0.0-0.1); BASOPHILS % (AUTO) 0.9 %; EOSINOPHILS # (AUTO) 0.2 10^3/uL (0.0-0.7); HGB - HEMOGLOBIN 12.6 g/dL (12.0-16.0); LYMPHOCYTES # (AUTO) 1.4 10^3/uL (1.5-3.5); LYMPHOCYTES % (AUTO) 18.6 %; MEAN PLATELET VOLUME 9.3 fL (7.9-10.8); MONOCYTES # (AUTO) 0.7 10^3/uL (0.0-1.0); MONOCYTES % (AUTO) 9.6 %; NEUTROPHILS # (AUTO) 5.1 10^3/uL (1.5-6.6); NEUTROPHILS % (AUTO) 67.5 %; PLT - PLATELET COUNT 297 10^3/uL (130-450); RED BLOOD COUNT 4.06 10^6/uL (4.20-5.40); RED CELL DISTRIBUTION WIDTH 13.5 % (12.0-15.0); WHITE BLOOD COUNT 7.6 x10^3/uL (4.8-10.8)
[2020-01-25 18:41] LABS: ALBUMIN 4.5 g/dL (3.2-5.5); ALBUMIN/GLOBULIN RATIO 1.5 (1.0-2.2); ALKALINE PHOSPHATASE 45 IU/L (42-121); ALT ALANINE AMINOTRANSFERASE 24 IU/L (10-60); AST ASPARTATE AMINOTRANSFERASE 26 IU/L (10-42); BILIRUBIN,TOTAL 0.6 mg/dL (0.2-1.0); BUN - BLOOD UREA NITROGEN 19 mg/dL (6-20); CALCIUM 9.7 mg/dL (8.5-10.3); CARBON DIOXIDE - CO2 21 mmol/L (21-32); CHLORIDE 103 mmol/L (101-111); CHOLESTEROL 170 mg/dL; CREATININE 1.1 mg/dL (0.4-1.0); GLUCOSE 168 mg/dL (70-100); HDL CHOLESTEROL 43 mg/dL; LDL CHOLESTEROL,CALCULATED 81 mg/dL; LDL/HDL RATIO 1.9 (<4.4); SODIUM 134 mmol/L (135-145); TOTAL PROTEIN 7.5 g/dL (6.7-8.2); VLDL CHOLESTEROL 46 mg/dL
[2020-01-25 18:58] LABS: HEMOGLOBIN A1C 0.75 g/dL; HEMOGLOBIN A1C % 7.4 % (4.6-6.2)
== END 2020-01-25 23:59 | disposition home or self-care (01) ==
LOC: LAB.WCP 08:00
PROVIDERS: ATTEND Family Medicine
DX: E11.9 Type 2 diabetes mellitus without complications (principal); R68.2 Dry mouth, unspecified
CPT/HCPCS: 36415; 80053; 80061; 81599; 83036; 83721; 85025; 86235

== ENCOUNTER 2020-02-27 06:40 | Outpatient (CLI) | payer MEDICARE, BC ==
[2020-02-27 12:36] LABS: BILIRUBIN,URINE NEGATIVE (NEGATIVE); CLARITY,URINE CLEAR (CLEAR); GLUCOSE, URINE (UA) NEGATIVE (NEGATIVE); KETONES,URINE (UA) NEGATIVE (NEGATIVE); LEUKOCYTE ESTERASE, URINE TRACE (NEGATIVE); NITRITE,URINE NEGATIVE (NEGATIVE); OCCULT BLOOD,URINE NEGATIVE (NEGATIVE); PROTEIN,URINE NEGATIVE (NEGATIVE); UROBILINOGEN,URINE 0.2 (NORMAL) E.U./dL (NORMAL)
[2020-02-27 12:47] LABS: BACTERIA,URINE Many /HPF (None Seen); RBC,URINE 0-5 /HPF (0-5); SQUAMOUS EPITHELIAL CELL,UR FEW Squamous (<= Few)
== END 2020-02-27 23:59 | disposition home or self-care (01) ==
LOC: LAB.WCP 06:40
PROVIDERS: ATTEND Nurse Practitioner Family
DX: N39.0 Urinary tract infection, site not specified (principal)
CPT/HCPCS: 81001; 81003; 87086

== ENCOUNTER 2020-11-23 08:58 | Outpatient (CLI) | payer MEDICARE, BC ==
--- NOTE | 2020-11-24 10:01 | CT Report ---
PROCEDURE: CHEST WO INDICATIONS: CHRONIC COUGH TECHNIQUE: Noncontrast 5 mm thick sections acquired from the pulmonary apices to the posterior costophrenic angl es. 7 mm thick coronal and sagittal MIP reformats were then acquired. For radiation dose reduction, the following was used: automated exposure control, adjustment of mA and/or kV according to patient size. COMPARISON: Prior CT 06/27/2013. Correlation is made with prior chest radiograph 11/10/2017, 10/27/2019 FINDINGS: Image quality: Excellent. Lungs and pleura: No acute air space opacities. 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 No pleural effusions or pneumothorax. Central and peripheral airways are p atent and normal in caliber. Mediastinum: Heart size is normal. There is mild coronary artery calcification. No pericardial effus ion. No mediastinal adenopathy by size criteria. Thoracic aorta and central pulmonary arteries are normal in size. Atherosclerotic calcification is seen. Esophagus is normal in caliber. There is a sm all hiatal hernia. Bones and chest wall: No suspicious bony lesions. No vertebral body compression fractures. Age-appr opriate degenerative changes are seen. There is accentuated thoracic kyphosis. No axillary or sup raclavicular adenopathy by size criteria. The thyroid is poorly seen on this noncontrast study, yet appears small in size. Abdomen: Cholecystectomy clips are seen. Postoperative change can be seen of the transverse colon. A therosclerotic calcification is seen. The visualized portions of the upper abdominal structures are o therwise within normal limits. 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 No focal infiltrates are seen. Incidental note is made of: Small hiatal hernia Cholecystectomy Postoperative change of the transverse colon. Atelectatic calcification, including mild coronary artery calcification. Reviewed by: Dick Sam MD on 11/24/2020 8:59 AM [place] Approved by: Dick Sam MD on 11/24/2020 8:59 AM [facility] Station ID: [id number]
== END 2020-11-23 08:59 | disposition home or self-care (01) ==
LOC: DI 08:58
PROVIDERS: ATTEND Family Medicine
DX: R05 Cough (principal); R91.8 Other nonspecific abnormal finding of lung field
CPT/HCPCS: 71250

== ENCOUNTER 2020-11-25 11:31 | Outpatient (CLI) | payer MEDICARE, BC ==
--- NOTE | 2020-11-25 12:36 | SLEEP CARE CONSULTATION ---
Information from patient questionnaire entered by Felecia Zarate. I have reviewed and concur with the information entered by Felecia Zarate. This document represents the service I personally performed and the decisions made by me, Thad Garcia MD, [facility]. History of Present Illness Service Date and Time: 11/25/2020 1131 Previous diagnosis: Mild, Obstructive Sleep Apnea-Hypopnea Syndrome AHI: 6.5 (in 2014) Reason for follow up: annual (last seen 06/2019) Equipment type: CPAP Equipment obtained from: [employer] Mask style: Nasal pillows Prior sleep studies: Yes Year and Where: 2014 - [facility] Sleep HPI additional information: HPI: Ms. Dash returned today for annual follow up of nasal CPAP therapy. She was last seen 3 years ago. She was diagnosed to have mild obstructive sleep apnea-hypopnea syndrome. The patient wears with a [employer]pir[employer]ear nasal cushion mask. She reports using the device nightly and all through the night, averaging 6.6 hours a night. The >4 hour compliance rate for the duration is 99.7%. She complained of no particular problem with the device such as soreness on the face, dry nose, epistaxis, nasal congestion or headache. She thinks that the pressure of 7 cmH2O is comfortable. On the CPAP therapy she notices improvement in her sleep quality, and that she wakes up feeling fresher in the morning and more awake/alert during the day. The [place] Sleepiness Scale score 13. Her notices no snore at all. The average residual AHI is 5.7 (was 7.2); and average time in large leak per day is 12 minutes. CPAP Compliance Data - Data Reviewed with Patient Average duration of nightly device use: 6 hr 59 min Compliance rate %: 95 (180 days) Current pressure setting (cmH2O): 7 Humidity settin Average residual AHI: 6.3 Average large leak: 56 sec Subjective Missed days of use due to: reports: other (power outage) Current pressure setting perceived as: comfortable Initial [place] Sleepiness Scale score: 13 (in 2014) Current [place] Sleepiness Scale score: 8 Allergies and Home Medications Drug allergies reviewed: Yes Home medication list reviewed: Yes Review of Systems Review of systems same as previous: Yes Physical Exam Height: 5 ft 4 in Weight: 200 lb Body Mass Index: 34.3 BMI Classification: Obese Impression and Plan IMPRESSION: 1. Obstructive Sleep Apnea-Hypopnea Syndrome, mild, with the patient doing well on nasal CPAP therapy. She has excellent compliance and significant clinical improvement. The current pressure appears effective and comfortable. Overall, she is very satisfied with treatment and plans to continue with it long-term. No adjustment is necessary today. Because the patients CPAP is now older than the useful life of 5 years, I will order a new autoCPAP and set it between 6 - 10 cmH2O. PLAN: 1. Prescription made for an autoCPAP with heated humidifier and other supplies. 2. Return for a follow up after one month of using the device for compliance check. Visit Type: In Office Provider Statement: I spent 100% of the Face to Face Visit with the patient with greater than 50% spent counseling the patient and coordination of care.
== END 2020-11-25 11:32 | disposition home or self-care (01) ==
LOC: SC 11:31
PROVIDERS: ATTEND Internal Medicine Pulmonary Disease
DX: G47.33 Obstructive sleep apnea (adult) (pediatric) (principal); E66.9 Obesity, unspecified; Z68.34 Body mass index [BMI] 34.0-34.9, adult; E11.9 Type 2 diabetes mellitus without complications
CPT/HCPCS: 36415; 80053; 80061; 82043; 83036; 84443; 85025; 99213; G0463; 83721; 99212

== ENCOUNTER 2020-11-25 11:58 | Outpatient (CLI) | payer MEDICARE, BC ==
[2020-11-25 18:38] LABS: BASOPHILS # (AUTO) 0.1 10^3/uL (0.0-0.1); BASOPHILS % (AUTO) 0.6 %; EOSINOPHILS # (AUTO) 0.2 10^3/uL (0.0-0.7); HGB - HEMOGLOBIN 13.1 g/dL (12.0-16.0); LYMPHOCYTES # (AUTO) 1.7 10^3/uL (1.5-3.5); LYMPHOCYTES % (AUTO) 14.7 %; MEAN CORPUSCULAR HEMOGLOBIN 30.8 pg (27.0-31.0); MEAN CORPUSCULAR HGB CONC 32.1 g/dL (32.0-36.0); MEAN PLATELET VOLUME 9.5 fL (7.9-10.8); MONOCYTES # (AUTO) 0.8 10^3/uL (0.0-1.0); NEUTROPHILS # (AUTO) 8.5 10^3/uL (1.5-6.6); NEUTROPHILS % (AUTO) 75.4 %; PLT - PLATELET COUNT 312 10^3/uL (130-450); RED BLOOD COUNT 4.25 10^6/uL (4.20-5.40); RED CELL DISTRIBUTION WIDTH 13.2 % (12.0-15.0); WHITE BLOOD COUNT 11.3 x10^3/uL (4.8-10.8)
[2020-11-25 18:48] LABS: ALBUMIN 4.7 g/dL (3.2-5.5); ALBUMIN/GLOBULIN RATIO 1.7 (1.0-2.2); ALKALINE PHOSPHATASE 62 IU/L (42-121); ALT ALANINE AMINOTRANSFERASE 27 IU/L (10-60); AST ASPARTATE AMINOTRANSFERASE 23 IU/L (10-42); BILIRUBIN,TOTAL 0.7 mg/dL (0.2-1.0); BUN - BLOOD UREA NITROGEN 19 mg/dL (6-20); CALCIUM 9.9 mg/dL (8.5-10.3); CARBON DIOXIDE - CO2 22 mmol/L (21-32); CHLORIDE 101 mmol/L (101-111); CHOL/HDL RATIO 3.7 (<4.4); CHOLESTEROL 185 mg/dL; CREATININE 1.1 mg/dL (0.4-1.0); GLUCOSE 161 mg/dL (70-100); HDL CHOLESTEROL 50 mg/dL; LDL CHOLESTEROL,CALCULATED 90 mg/dL; LDL/HDL RATIO 1.8 (<4.4); SODIUM 138 mmol/L (135-145); TOTAL PROTEIN 7.5 g/dL (6.7-8.2); VLDL CHOLESTEROL 45 mg/dL
== END 2020-11-25 11:59 | disposition home or self-care (01) ==
LOC: LAB.N 11:58
PROVIDERS: ATTEND Family Medicine
DX: E11.9 Type 2 diabetes mellitus without complications (principal)
CPT/HCPCS: 36415; 80053; 80061; 82043; 83036; 83721; 84443; 85025

== ENCOUNTER 2021-03-17 08:00 | Outpatient (CLI) | payer MEDICARE, BC ==
[2021-03-17 14:03] LABS: CALCIUM 9.5 mg/dL (8.5-10.3); CREATININE 1.1 mg/dL (0.4-1.0); POTASSIUM 4.4 mmol/L (3.5-5.0)
[2021-03-17 14:07] LABS: ESTIMATED AVERAGE GLUCOSE 169 mg/dL (70-100); HEMOGLOBIN A1c% 7.5 % (4.27-6.07)
[2021-03-17 19:07] LABS: CREATININE,URINE 147.1 mg/dL; MICROALBUM/CREATININE RATIO,UR 9.5 ug/mg (<30.0); MICROALBUMIN,URINE 1.4 mg/dL (0-300.0)
== END 2021-03-17 23:59 | disposition home or self-care (01) ==
LOC: LAB.WCP 08:00
PROVIDERS: ATTEND Family Medicine
DX: E11.9 Type 2 diabetes mellitus without complications (principal)
CPT/HCPCS: 36415; 80048; 82043; 82570; 83036

== ENCOUNTER 2021-03-31 15:02 | Outpatient (CLI) | payer MEDICARE, BC ==
--- NOTE | 2021-03-31 17:12 | SLEEP CARE CONSULTATION ---
Information from patient questionnaire entered by Felecia Zraate. I have reviewed and concur with the information entered by Felecia Zarate. This document represents the service I personally performed and the decisions made by me, Thad Garcia MD, [facility]. History of Present Illness Service Date and Time: 03/31/2021 1502 Previous diagnosis: Mild, Obstructive Sleep Apnea-Hypopnea Syndrome AHI: 6.5 (in 2014) Reason for follow up: first compliance after device update Equipment type: CPAP Equipment obtained from: [employer] Mask style: Nasal pillows Prior sleep studies: Yes Year and Where: 2014 - [facility] Sleep Type of Sleep Study: Polysomnography HPI additional information: HPI: Ms. Dash was diagnosed to have mild (AHI 6.5) obstructive sleep apnea- hypopnea syndrome returned today for her annual follow up of CPAP therapy. She recently go a new machine from [employer]. She now uses a ResMed N30i nasal mask (switched from a Respironics Dreamwear nasal cushion mask). The compliance repo rt shows average usage of 5.6 hours a night, yielding a compliance rate of 83.3%. The residual AHI is 3.8. Average time in large air leak is 10 seconds. The patient complains of the mask blocking her nostrils at night and the back strap sliding up. CPAP Compliance Data - Data Reviewed with Patient Average duration of nightly device use: 5 hr 34 min Compliance rate %: 83.3 (last 30)(100 on 12/25/20-01/23/21) Current pressure setting (cmH2O): 6-10 Humidity settin Heated hose settin Average residual AHI: 3.8 Average large leak: 10 sec Subjective Patient concerns: reports: mask leak noise, dry mouth, nose, throat Initial [place] Sleepiness Scale score: 13 (in 2015) Current [place] Sleepiness Scale score: 8 Allergies and Home Medications Drug allergies reviewed: Yes Home medication list reviewed: Yes Review of Systems Review of systems same as previous: Yes Physical Exam Height: 5 ft 4 in Weight: 191 lb Body Mass Index: 32.8 BMI Classification: Obese Impression and Plan IMPRESSION: 1. Obstructive Sleep Apnea-Hypopnea Syndrome, mild, with the patient continuing to have good treatment compliance on her new machine. The current pressure appears effective and comfortable. It seems like the ResMed N30i nasal mask does not fit as well as the Respironics Dreamwear nasal cushion mask. PLAN: 1. Continue with autoCPAP set at 6 10 cm H2O. * Prescription made for a Respironics Dreamwear nasal cushion mask with arms. * Return for a follow up in one year or earlier if there is any problem. Counseling Topics: Weight loss health impact Visit Type: In Office Time Spent with Patient (minutes): 15 Provider Statement: I spent 100% of the Face to Face Visit with the patient with greater than 50% spent counseling the patient and coordination of care.
== END 2021-03-31 15:03 | disposition home or self-care (01) ==
LOC: SC 15:02
PROVIDERS: ATTEND Internal Medicine Pulmonary Disease
DX: G47.33 Obstructive sleep apnea (adult) (pediatric) (principal); E66.9 Obesity, unspecified; Z68.32 Body mass index [BMI] 32.0-32.9, adult
CPT/HCPCS: 99212; G0463

== ENCOUNTER 2021-07-21 12:10 | Outpatient (CLI) | payer MEDICARE, BC ==
[2021-07-21 17:41] LABS: BASOPHILS # (AUTO) 0.1 10^3/uL (0.0-0.1); BASOPHILS % (AUTO) 0.6 %; EOSINOPHILS # (AUTO) 0.2 10^3/uL (0.0-0.7); EOSINOPHILS % (AUTO) 1.2 %; HCT - HEMATOCRIT 42.3 % (37.0-47.0); HGB - HEMOGLOBIN 13.4 g/dL (12.0-16.0); LYMPHOCYTES # (AUTO) 3.6 10^3/uL (1.5-3.5); LYMPHOCYTES % (AUTO) 26.8 %; MEAN CORPUSCULAR HEMOGLOBIN 31.2 pg (27.0-31.0); MEAN CORPUSCULAR HGB CONC 31.7 g/dL (32.0-36.0); MEAN CORPUSCULAR VOLUME 98.6 fL (81.0-99.0); MEAN PLATELET VOLUME 9.2 fL (7.9-10.8); MONOCYTES % (AUTO) 7.7 %; NEUTROPHILS # (AUTO) 8.4 10^3/uL (1.5-6.6); NEUTROPHILS % (AUTO) 62.6 %; PLT - PLATELET COUNT 338 10^3/uL (130-450); RED BLOOD COUNT 4.29 10^6/uL (4.20-5.40); RED CELL DISTRIBUTION WIDTH 13.7 % (12.0-15.0); WHITE BLOOD COUNT 13.4 x10^3/uL (4.8-10.8)
[2021-07-21 18:10] LABS: ALBUMIN 4.9 g/dL (3.2-5.5); ALBUMIN/GLOBULIN RATIO 2.1 (1.0-2.2); ALKALINE PHOSPHATASE 40 IU/L (42-121); ALT ALANINE AMINOTRANSFERASE 26 IU/L (10-60); AST ASPARTATE AMINOTRANSFERASE 20 IU/L (10-42); BILIRUBIN,TOTAL 0.7 mg/dL (0.2-1.0); BUN - BLOOD UREA NITROGEN 22 mg/dL (6-20); CALCIUM 9.8 mg/dL (8.5-10.3); CARBON DIOXIDE - CO2 23 mmol/L (21-32); CHLORIDE 105 mmol/L (101-111); CHOL/HDL RATIO 3.6 (<4.4); CHOLESTEROL 244 mg/dL; CREATININE 1.2 mg/dL (0.4-1.0); GFR - MDRD 43 (>89); GLUCOSE 142 mg/dL (70-100); HDL CHOLESTEROL 68 mg/dL; LDL CHOLESTEROL,CALCULATED 128 mg/dL; LDL/HDL RATIO 1.9 (<4.4); POTASSIUM 4.7 mmol/L (3.5-5.0); SODIUM 141 mmol/L (135-145); TOTAL PROTEIN 7.2 g/dL (6.7-8.2); TRIGLYCERIDES 239 mg/dL; VLDL CHOLESTEROL 48 mg/dL
[2021-07-21 18:18] LABS: THYROID STIMULATING HORMONE 5.59 uIU/mL (0.34-5.60)
[2021-07-21 18:19] LABS: CREATININE,URINE 124.6 mg/dL; MICROALBUM/CREATININE RATIO,UR 24.1 ug/mg (<30.0)
[2021-07-21 20:37] LABS: ESTIMATED AVERAGE GLUCOSE 189 mg/dL (70-100); HEMOGLOBIN A1c% 8.2 % (4.27-6.07)
== END 2021-07-21 12:11 | disposition home or self-care (01) ==
LOC: LAB.N 12:10
PROVIDERS: ATTEND Family Medicine
DX: E11.9 Type 2 diabetes mellitus without complications (principal)
CPT/HCPCS: 36415; 80053; 80061; 82043; 82570; 83036; 83721; 84443; 85025

== ENCOUNTER 2022-03-06 10:51 | Outpatient (CLI) | payer MEDICARE, BC ==
--- NOTE | 2022-03-06 21:03 | Ultrasound Report ---
PROCEDURE: Pelvic w/Transvaginal INDICATIONS: LLQ ABD PAIN TECHNIQUE: Real-time scanning was performed of the pelvic organs, with image documentation. Additional endovagi nal scanning was necessary due to incomplete visualization of the adnexal and endometrial structures by transabdominal scanning. COMPARISON: None. FINDINGS: Limited scanning through the kidneys shows no hydronephrosis. No pathologic free abdominal or pelvic fluid. Uterus: Uterus is normal in size at 4.9 x 1.9 x 4.3 cm. The endometrium measures 10 mm in combined thickness. It is heterogeneous in appearance with areas of calcification. Ovaries: Right ovary is not visualized. Left ovary measures 2.0 x 1.0 x 1.1 cm, volume 1.1 cc. Other: No free pelvic fluid. IMPRESSION: Thickened endometrium in a postmenopausal female. No discrete mass is identified. However, it is over all heterogeneous. Further evaluation with endometrial sampling is recommended to exclude malignancy. Reviewed by: Janette Nunez MD on 03/06/2022 9:01 PM PDT Approved by: Janette Nunez MD on 03/06/2022 9:01 PM PDT Station ID: [id number]
== END 2022-03-06 10:52 | disposition home or self-care (01) ==
LOC: DI 10:51
PROVIDERS: ATTEND Physician Assistant
DX: R10.32 Left lower quadrant pain (principal); R93.89 Abnormal findings on diagnostic imaging of other specified body structures

== ENCOUNTER 2022-04-20 13:10 | Outpatient (CLI) | payer MEDICARE, BC ==
[2022-04-20 22:29] VITALS: BP 124/76
--- NOTE | 2022-04-20 22:29 | SLEEP CARE CONSULTATION ---
Information from patient questionnaire entered by Estrella Bright MA. I have reviewed and concur with the information entered by Estrella Bright MA. This document represents the service I personally performed and the decisions made by me, Thad Garcia MD, [facility]. History of Present Illness Service Date and Time: 04/20/2022 1310 Previous diagnosis: Mild, Obstructive Sleep Apnea-Hypopnea Syndrome AHI: 6.5 (in 2014) Reason for follow up: annual (LAST SEEN 02/2021, JONA, [place] 12/09/2020, ) Equipment type: CPAP Equipment obtained from: [employer] Mask style: Nasal pillows Prior sleep studies: Yes Year and Where: 2014 - [facility] Sleep Type of Sleep Study: Polysomnography HPI additional information: Ms. Dash returned today for annual follow up of nasal CPAP therapy. She was last seen a year ago. She was diagnosed to have mild obstructive sleep apnea- hypopnea syndrome. The patient wears with a [employer] nasal cushion mask. She reports using the device nightly and all through the night, averaging 5.5 hours a night. The >4 hour compliance rate for the duration is 70%. She complained of no particular problem with the device such as soreness on the face, dry nose, epistaxis, nasal congestion or headache. She thinks that the pressure of 6 - 10 cmH2O is comfortable. On the CPAP therapy she is feeling about the same as not using the CPAP. The [place] Sleepiness Scale score 11. Her notices no snore at all. The average residual AHI is 2.7 (was 7.2); and average time in large leak per day is 0 minutes. Her Otis Respironics DreamStation is on the recall. It is highly unlikely that she develops interstitial lung disease from it. Sleep Study - Results Type of Sleep Study: Polysomnography Prior sleep studies: Yes Year and Where: 2014 - [facility] Sleep Subjective Initial [place] Sleepiness Scale score: 13 (in 2014) Allergies and Home Medications Known drug allergies: Yes (PNC, SHERYL (ALL)) Drug allergies reviewed: Yes Home medication list reviewed: Yes Allergy and home medication list: Allergies colchicine Allergy (Severe, Verified 11/10/17 12:57) Diarrhea Penicillins Allergy (Intermediate, Verified 01/03/18 12:57) Rash/Swelling sulfamethoxazole [From Bactrim] Allergy (Intermediate, Verified 11/10/17 12:57) Rash trimethoprim [From Bactrim] Allergy (Intermediate, Verified 11/10/17 12:57) Rash Gadolinium-Containing Contrast Medi Adverse Reaction (Severe, Verified 11/10/17 12:57) Nausea/Vomiting Review of Systems Review of systems same as previous: Yes Physical Exam Vital signs obtained and entered by: Loki BRIGHT CMA AAOK Blood Pressure: 124/76 (RESP 16, PULSE 85, LEFT,) Heart Rate: 80 O2 Saturation: 96 Height: 5 ft 4 in Weight: 175 lb Body Mass Index: 30.0 BMI Classification: Obese Impression and Plan IMPRESSION: 1. Obstructive Sleep Apnea-Hypopnea Syndrome, mild (AHI was 6.5 in 2015), with the patient having adequate compliance. She now is becoming uncomfortable on the treatment. She has lost 25 lbs since her sleep study in 2014. Therefore, before insisting that she keeps on using the CPAP, I would like to repeat the in-laboratory polysomnography. She may stop using her CPAP for now. PLAN: 1. Schedule an in-laboratory polysomnography. 2. Return for a follow up after the sleep study. Follow up with Sleep Care in: 1-2 months Visit Type: In Office Time Spent with Patient (minutes): 20 Provider Statement: I spent 100% of the Face to Face Visit with the patient with greater than 50% spent counseling the patient and coordination of care.
== END 2022-04-20 13:11 | disposition home or self-care (01) ==
LOC: SC 13:10
PROVIDERS: ATTEND Nurse Practitioner Family
DX: G47.33 Obstructive sleep apnea (adult) (pediatric) (principal); E66.9 Obesity, unspecified; Z68.30 Body mass index [BMI] 30.0-30.9, adult
CPT/HCPCS: 99213; G0463; 99212

== ENCOUNTER 2022-04-20 13:52 | Outpatient (CLI) | payer MEDICARE, BC ==
--- NOTE | 2022-04-21 12:40 | Mammography Report ---
BILATERAL DIGITAL SCREENING MAMMOGRAM 3D/2D: 04/20/2022 CLINICAL: Routine screening. Comparison is made to exams dated: 02/21/2018 mammogram, 01/27/2017 mammogram, and 03/25/2015 mammogram - [facility]. There are scattered fibroglandular elements in both breasts. No significant masses, calcifications, or other findings are seen in either breast. There has been no significant interval change. IMPRESSION: NEGATIVE There is no mammographic evidence of malignancy. A 1 year screening mammogram is recommended. This exam was interpreted at Station ID: [id number]. NOTE: For mammograms, a report in lay terms will be sent to the patient. Approximately 15% of breast malignancies will not be visualized mammographically. In the management of a palpable breast mass, a negative mammogram must not discourage biopsy of a clinically suspicious lesion. Electronically Signed By: Polo Chong M.D. [email or web address]:04/20/2022 14:40:37 ACR BI-RADS Category 1: Negative 3341F PARENCHYMAL PATTERN: (A) - The breast(s) demonstrate(s) scattered fibroglandular densities. BI-RADS CATEGORY: (1) - 1 RECOMMENDATION: (ANNUAL) - Recommend routine annual screening mammography. [id number] 1 year screening LATERALITY: (B)
== END 2022-04-20 13:53 | disposition home or self-care (01) ==
LOC: DI.N 13:52
PROVIDERS: ATTEND Physician Assistant
DX: Z12.31 Encounter for screening mammogram for malignant neoplasm of breast (principal)

== ENCOUNTER 2023-05-21 11:56 | Outpatient (CLI) | payer MEDICARE ==
[2023-05-21 17:59] LABS: BASOPHILS # (AUTO) 0.1 10^3/uL (0.0-0.1); BASOPHILS % (AUTO) 0.5 %; EOSINOPHILS # (AUTO) 0.2 10^3/uL (0.0-0.7); EOSINOPHILS % (AUTO) 2.2 %; HCT - HEMATOCRIT 40.4 % (37.0-47.0); HGB - HEMOGLOBIN 12.9 g/dL (12.0-16.0); LYMPHOCYTES # (AUTO) 1.5 10^3/uL (1.5-3.5); LYMPHOCYTES % (AUTO) 14.5 %; MEAN CORPUSCULAR HEMOGLOBIN 29.5 pg (27.0-31.0); MEAN CORPUSCULAR HGB CONC 31.9 g/dL (32.0-36.0); MEAN CORPUSCULAR VOLUME 92.2 fL (81.0-99.0); MEAN PLATELET VOLUME 9.3 fL (7.9-10.8); MONOCYTES # (AUTO) 0.8 10^3/uL (0.0-1.0); MONOCYTES % (AUTO) 7.5 %; NEUTROPHILS # (AUTO) 7.5 10^3/uL (1.5-6.6); NEUTROPHILS % (AUTO) 74.8 %; PLT - PLATELET COUNT 314 10^3/uL (130-450); RED BLOOD COUNT 4.38 10^6/uL (4.20-5.40); RED CELL DISTRIBUTION WIDTH 13.4 % (12.0-15.0); WHITE BLOOD COUNT 10.1 x10^3/uL (4.8-10.8)
[2023-05-21 18:17] LABS: ALBUMIN 4.5 g/dL (3.2-5.5); ALBUMIN/GLOBULIN RATIO 1.6 (1.0-2.2); ALKALINE PHOSPHATASE 71 IU/L (42-121); ALT ALANINE AMINOTRANSFERASE 17 IU/L (10-60); AST ASPARTATE AMINOTRANSFERASE 20 IU/L (10-42); BILIRUBIN,TOTAL 0.7 mg/dL (0.2-1.0); BUN - BLOOD UREA NITROGEN 25 mg/dL (6-20); CARBON DIOXIDE - CO2 24 mmol/L (21-32); CHLORIDE 104 mmol/L (101-111); CHOL/HDL RATIO 2.9 (<4.4); CHOLESTEROL 157 mg/dL; CREATININE 1.5 mg/dL (0.4-1.0); GFR - MDRD 33 (>89); GLUCOSE 133 mg/dL (70-100); HDL CHOLESTEROL 54 mg/dL; LDL CHOLESTEROL,CALCULATED 69 mg/dL; LDL/HDL RATIO 1.3 (<4.4); POTASSIUM 5.2 mmol/L (3.5-5.0); SODIUM 136 mmol/L (135-145); TOTAL PROTEIN 7.3 g/dL (6.7-8.2); TRIGLYCERIDES 171 mg/dL; URIC ACID 5.5 mg/dL (2.6-7.2); VLDL CHOLESTEROL 34 mg/dL
[2023-05-21 18:25] LABS: THYROID STIMULATING HORMONE 4.25 uIU/mL (0.34-5.60)
[2023-05-21 20:50] LABS: ESTIMATED AVERAGE GLUCOSE 123 mg/dL (70-100); HEMOGLOBIN A1c% 5.9 % (4.27-6.07)
== END 2023-05-21 11:57 | disposition home or self-care (01) ==
LOC: LAB.N 11:56
PROVIDERS: ATTEND Physician Assistant
DX: I10 Essential (primary) hypertension (principal); Z51.81 Encounter for therapeutic drug level monitoring; E78.5 Hyperlipidemia, unspecified; E11.9 Type 2 diabetes mellitus without complications; M10.9 Gout, unspecified
CPT/HCPCS: 36415; 80053; 80061; 82043; 82570; 83036; 83721; 84443; 84550; 85025

== ENCOUNTER 2023-06-09 12:16 | Outpatient (CLI) | payer MEDICARE ==
[2023-06-09 18:12] LABS: CALCIUM 9.8 mg/dL (8.5-10.3); CREATININE 1.4 mg/dL (0.6-1.3); POTASSIUM 4.7 mmol/L (3.5-4.5)
[2023-06-09 18:19] LABS: CREATININE,URINE 163.7 mg/dL; MICROALBUM/CREATININE RATIO,UR 38.5 ug/mg (<30.0); MICROALBUMIN,URINE 6.3 mg/dL
== END 2023-06-09 12:17 | disposition home or self-care (01) ==
LOC: LAB.N 12:16
PROVIDERS: ATTEND Physician Assistant
DX: E11.9 Type 2 diabetes mellitus without complications (principal); R94.4 Abnormal results of kidney function studies
CPT/HCPCS: 36415; 80048; 82043; 82570

== ENCOUNTER 2023-07-05 11:05 | Outpatient (CLI) | payer MEDICARE ==
--- NOTE | 2023-07-05 14:51 | Ultrasound Report ---
PROCEDURE: Retroperitoneal INDICATIONS: ELEVATED CREATININE TECHNIQUE: Real-time scanning was performed of the retroperitoneal organs, with image documentation. COMPARISON: CT abdomen/pelvis 07/28/2019. FINDINGS: Kidneys: Kidneys are normal in size. Right kidney measures 9.3 cm long; left kidney measures 1.1 cm long. Right renal cortical thickness is 9.6 cm; left renal cortical thickness is 1.0 cm. No jazmin id masses, hydronephrosis, or nephrolithiasis. Bladder: Pre-void bladder volume is 131 mL. Post-void residual is 5 mL. Pre-void images demonstrat e no intraluminal masses or stones. On pre-void images, bilateral ureteral jets are noted with color Doppler interrogation. (Of note, ureteral jets may not be detectable in up to 25% of cases due to i nsufficient differences in specific gravity between ureteral and bladder urine). Miscellaneous: No free abdominal fluid. IMPRESSION: No hydronephrosis or nephrolithiasis. Unremarkable renal ultrasound. Reviewed by: Polo Chong MD on 07/05/2023 2:50 PM PDT Approved by: Polo Chong MD on 07/05/2023 2:50 PM PDT Station ID: [id number]
== END 2023-07-05 11:06 | disposition home or self-care (01) ==
LOC: DI 11:05
PROVIDERS: ATTEND Physician Assistant
DX: R79.89 Other specified abnormal findings of blood chemistry (principal)

== ENCOUNTER 2024-02-18 08:16 | Outpatient (CLI) | payer MEDICARE ==
[2024-02-18 12:23] LABS: BASOPHILS # (AUTO) 0.1 10^3/uL (0.0-0.1); BASOPHILS % (AUTO) 0.9 %; EOSINOPHILS # (AUTO) 0.2 10^3/uL (0.0-0.7); EOSINOPHILS % (AUTO) 2.2 %; HCT - HEMATOCRIT 42.9 % (37.0-47.0); HGB - HEMOGLOBIN 13.1 g/dL (12.0-16.0); LYMPHOCYTES # (AUTO) 1.5 10^3/uL (1.5-3.5); LYMPHOCYTES % (AUTO) 14.2 %; MEAN CORPUSCULAR HEMOGLOBIN 29.6 pg (27.0-31.0); MEAN CORPUSCULAR HGB CONC 30.5 g/dL (32.0-36.0); MEAN CORPUSCULAR VOLUME 97.1 fL (81.0-99.0); MEAN PLATELET VOLUME 9.5 fL (7.9-10.8); MONOCYTES # (AUTO) 0.8 10^3/uL (0.0-1.0); NEUTROPHILS # (AUTO) 7.8 10^3/uL (1.5-6.6); NEUTROPHILS % (AUTO) 74.4 %; PLT - PLATELET COUNT 302 10^3/uL (130-450); RED BLOOD COUNT 4.42 10^6/uL (4.20-5.40); RED CELL DISTRIBUTION WIDTH 13.1 % (12.0-15.0); WHITE BLOOD COUNT 10.5 x10^3/uL (4.8-10.8)
[2024-02-18 12:47] LABS: ALBUMIN 4.6 g/dL (3.2-5.5); ALBUMIN/GLOBULIN RATIO 1.8 (1.0-2.2); ALKALINE PHOSPHATASE 96 IU/L (42-121); ALT ALANINE AMINOTRANSFERASE 14 IU/L (10-60); AST ASPARTATE AMINOTRANSFERASE 15 IU/L (10-42); BILIRUBIN,TOTAL 0.4 mg/dL (0.2-1.0); BUN - BLOOD UREA NITROGEN 24 mg/dL (6-20); CALCIUM 10.4 mg/dL (8.5-10.3); CARBON DIOXIDE - CO2 27 mmol/L (21-32); CHLORIDE 103 mmol/L (101-111); CHOL/HDL RATIO 3.3 (<4.4); CHOLESTEROL 167 mg/dL; CREATININE 1.2 mg/dL (0.6-1.3); GFR - MDRD 43 (>89); GLUCOSE 133 mg/dL (74-104); HDL CHOLESTEROL 50 mg/dL; LDL CHOLESTEROL,CALCULATED 67 mg/dL; LDL/HDL RATIO 1.3 (<4.4); SODIUM 137 mmol/L (135-145); TOTAL PROTEIN 7.2 g/dL (6.4-8.9); TRIGLYCERIDES 251 mg/dL (48-352); VLDL CHOLESTEROL 50 mg/dL
[2024-02-18 12:54] LABS: ESTIMATED AVERAGE GLUCOSE 108 mg/dL (70-100); HEMOGLOBIN A1c% 5.4 % (4.27-6.07)
[2024-02-18 13:00] LABS: THYROID STIMULATING HORMONE 3.08 uIU/mL (0.34-5.60)
[2024-02-18 13:11] LABS: CREATININE,URINE 89.7 mg/dL; MICROALBUM/CREATININE RATIO,UR 24.5 ug/mg (<30.0); MICROALBUMIN,URINE 2.2 mg/dL
== END 2024-02-18 08:17 | disposition home or self-care (01) ==
LOC: LAB.N 08:16
PROVIDERS: ATTEND Physician Assistant
DX: E11.9 Type 2 diabetes mellitus without complications (principal); E78.5 Hyperlipidemia, unspecified; R80.9 Proteinuria, unspecified; I10 Essential (primary) hypertension
CPT/HCPCS: 36415; 80053; 80061; 82043; 82570; 83036; 83721; 84443; 85025

== ENCOUNTER 2024-02-28 16:05 | Outpatient (CLI) | payer MEDICARE | END 2024-02-28 23:59 | disposition critical access hospital (66) | LOC: EMS 16:05 | DX: M25.552 Pain in left hip (principal); W01.0XXA Fall on same level from slipping, tripping and stumbling without subsequent striking against object, initial encounter; Y92.008 Other place in unspecified non-institutional (private) residence as the place of occurrence of the external cause | CPT/HCPCS: A0425; A0429 ==

== ENCOUNTER 2024-07-11 12:27 | Outpatient (CLI) | payer MEDICARE | END 2024-07-11 23:59 | disposition critical access hospital (66) | LOC: EMS 12:27 | DX: S09.92XA Unspecified injury of nose, initial encounter (principal); W01.0XXA Fall on same level from slipping, tripping and stumbling without subsequent striking against object, initial encounter; Y92.007 Garden or yard of unspecified non-institutional (private) residence as the place of occurrence of the external cause | CPT/HCPCS: A0425; A0429 ==

== ENCOUNTER 2024-07-11 12:42 | Observation (INO) | payer MEDICARE ==
--- NOTE | 2024-07-11 13:42 | ED Physician Documentation ---
PD HPI HEAD INJURY - Stated complaint Stated Complaint: GLF - Chief complaint Chief Complaint: Trauma Hd/Nk - History obtained from History obtained from: Patient - Additional information Additional information: The patient comes to the emergency department chief complaint of left facial injury after a trip and fall incident at home this afternoon. She states that she was walking in her garden and tripped over a hose. She fell straight down onto pavers, striking her left face. She states she was not really able to break the fall at all. She does not think she got injured in any other way. Sh dai did not lose consciousness, she does not think, because she started screaming right away when she saw that her nose was bleeding. The patient complains of some nasal pain. No visual changes in her left eye. She states that the bleeding has now subsided from her nose. She denies any pain or feeling of injury anywhere else in her body. No neck pain. No extremity pain. No rib pain. She has been ambulatory since. No other complaints at this time. PD PAST MEDICAL HISTORY - Past Medical History Past Medical History: Yes Cardiovascular: Hypertension, High cholesterol Respiratory: Shortness of breath, Sleep apnea, CPAP use Neuro: None Endocrine/Autoimmune: Type 2 diabetes GI: GERD NURSERYPERSON: Ovarian cysts : None HEENT: None Psych: Anxiety Musculoskeletal: None, Gout, Other Derm: None - Past Surgical History Past Surgical History: Yes General: Cholecystectomy, Bowel surgery, Other Ortho: Other /NURSERYPERSON:  - Present Medications Home Medications: Ambulatory Orders Medication Instructions Recorded Confirmed Febuxostat [Uloric] 40 mg PO DAILY 04/27/13 07/11/24 Meloxicam [Mobic] 7.5 mg PO BID PRN #20 tablet 11/10/17 07/11/24 Nebivolol HCl [Bystolic] 5 mg PO DAILY 03/01/19 07/11/24 buPROPion [Wellbutrin Xl] 300 mg PO DAILY 03/01/19 07/11/24 Buspirone HCl 10 mg PO DAILY 07/11/24 07/11/24 Citalopram Hydrobromide [Celexa] 20 mg PO DAILY 07/11/24 07/11/24 Glimepiride [Amaryl] 2 mg PO 0800 07/11/24 07/11/24 Omeprazole 20 mg PO BID 07/11/24 07/11/24 Rosuvastatin Calcium 10 mg PO HS 07/11/24 07/11/24 Valsartan [Diovan] 40 mg PO DAILY 07/11/24 07/11/24 allopurinoL [Zyloprim] 100 mg PO DAILY 07/11/24 07/11/24 - Allergies Allergies/Adverse Reactions: Allergies Allergy/AdvReac Type Severity Reaction Status Date / Time colchicine Allergy Severe Diarrhea Verified 07/11/24 12:52 Penicillins Allergy Intermediate Rash/Swelli Verified 07/11/24 12:52 ng sulfamethoxazole Allergy Intermediate Rash Verified 07/11/24 12:52 [From Bactrim] trimethoprim [From Bactrim] Allergy Intermediate Rash Verified 07/11/24 12:52 Gadolinium-Containing AdvReac Severe Nausea/Vomi Verified 07/11/24 12:52 Contrast Medi ting - Social History Does the pt smoke?: No Smoking Status: Never smoker Does the pt drink ETOH?: No Does the pt have substance abuse?: No - Immunizations Immunizations are current?: Yes - POLST Patient has POLST: No PD ED PE NORMAL - Vitals Vital signs reviewed: Yes - General General: Alert and oriented X 3, No acute distress, Well developed/nourished - HEENT HEENT: PERRL, EOMI, Moist mucous membranes, Other (Moderate edema of the medial periorbital area extending over the nasal bridge. Contusion over the same area. Mild deformity of the nasal bridge, though this may be due to edema. Extraocular muscles intact. No tenderness or edema involving any of the rest of the face. Epistaxis controlled) - Cardiac Cardiac: RRR, No murmur - Respiratory Respiratory: Clear bilaterally - Abdomen Abdomen: Normal bowel sounds, Soft, Non tender, Non distended - Derm Derm: Warm and dry - Extremities Extremities: No deformity - Neuro Neuro: Alert and oriented X 3 - Psych Psych: Normal mood, Normal affect - Free text exam Free text exam: No septal hematoma. Results - Vitals Vitals: Vital Signs - 24 hr 07/11/24 07/11/24 07/11/24 12:53 15:00 16:00 Temperature 36.6 C Heart Rate 83 68 68 Respiratory 18 17 18 Rate Blood Pressure 170/96 H 152/91 H 148/87 H O2 Saturation 97 100 98 07/11/24 16:52 Temperature Heart Rate 69 Respiratory 14 Rate Blood Pressure 187/85 H O2 Saturation 98 Oxygen O2 Source Room air - Rads (name of study) CT head Relevant Findings:: Final report received, See rad report (Comminuted nasal bone fracture otherwise no acute findings.) Maxillofacial CT no contrast Relevant Findings:: Final report received, See rad report (Severely comminuted nasal bone fracture; nasal septal fracture; medial wall right maxillary sinus fracture; comminuted nondisplaced fracture of the left lateral orbital wall/granuloma and zygomatic arch projections into orbital wall) PD Medical Decision Making - ED course Complexity details: reviewed results, re-evaluated patient, considered differential, d/w patient ED course: The patient was worked up with CT scans of the head and faceComment which showed facial fractures as above. I discussed the case with Dr. Viramontes, who did come in and see the patient and would like to try to have the patient go to the operating room first thing tomorrow morning. He is admitting the patient to his service for observation and patient is agreeable to the plan. She has wanted only Tylenol for pain control here in the ED. Departure - Departure Disposition: ED Place in Observation Clinical Impression: Medial orbital wall fracture Qualifiers: Encounter type: initial encounter Fracture type: closed Laterality: left Qual ified Code(s): S02.832A - Fracture of medial orbital wall, left side, initial encounter for closed fracture Nasal bone fracture Qualifiers: Encounter type: initial encounter Fracture type: closed Qualified Code(s): S02.2XXA - Fracture of nasal bones, initial encounter for closed fracture Maxillary sinus fracture Qualifiers: Encounter type: initial encounter Fracture type: closed Qualified Code(s): S02.401A - Maxillary fracture, unspecified side, initial encounter for closed fracture Condition: Serious Forms: PCP List
--- NOTE | 2024-07-11 14:53 | CT Report ---
PROCEDURE: Head WO INDICATIONS: fall/head inj TECHNIQUE: Noncontrast 4.5 mm thick angled axial sections acquired from the foramen magnum to the vertex. For r adiation dose reduction, the following was used: automated exposure control, adjustment of mA and/or kV according to patient size. COMPARISON: CT maxillofacial areas from the same date.. FINDINGS: Image quality: Excellent. CSF spaces: Basal cisterns are patent. No extra-axial fluid collections. Ventricles are normal in size and shape. Brain: No midline shift. No intracranial masses or hemorrhage. Leon-white matter interface is norm al. Intracranial carotid calcifications. Age-related volume loss and very mild, age-appropriate smal l vessel ischemic change. Skull and face: No calvarial fractures are identified. There is a markedly comminuted nasal bone frac ture and a nasal septal fracture as well. Sinuses: Visualized sinuses and mastoids are clear. IMPRESSION: 1. Markedly comminuted nasal bone fracture, nasal septal fracture. 2. No acute intracranial process. Reviewed by: Stevie Buenrostro MD on 07/11/2024 2:51 PM PDT Approved by: Stevie Buenrostro MD on 07/11/2024 2:51 PM PDT Station ID: [id number]
--- NOTE | 2024-07-11 15:03 | CT Report ---
PROCEDURE: Maxillofacial WO INDICATIONS: fall R face inj TECHNIQUE: Noncontrast 1.5 mm thick axial images acquired from the mandible through the frontal sinuses, with co akshat and sagittal reformatting. For radiation dose reduction, the following was used: automated ex posure control, adjustment of mA and/or kV according to patient size. COMPARISON: CT head from the same date. FINDINGS: Image quality: Excellent. Bones and teeth: Markedly comminuted nasal bone fracture. Nasal septal fracture. Medial wall right m axillary sinus fracture. Comminuted nondisplaced fracture of the left lateral orbital wall/zygoma, wh ere the zygomatic arch attaches on the orbital wall. Reference axial image 267/3.. Visualized portio ns of the mandible demonstrate no fractures or subluxation. Zygomatic arches are intact. Pterygoid plates are intact. Visualized portions of the skull base and auditory canals are intact. Sinuses: Small bilateral maxillary sinus air-fluid levels. There is a medial wall very subtle right m axillary sinus fracture. No left maxillary sinus fracture is identified. Mastoid air cells are aerate d. Soft tissues: No edema, masses, or fluid collections. There is expected fluid present in the nasal f mara bilaterally secondary to nasal bone and nasal septal fractures. No enlarged lymph nodes. No so ft tissue lacerations or debris. Vascular: Visualized vascular structures appear normal in the absence of contrast. Bony vascular fo ramina and canals are intact. IMPRESSION: 1. Severely comminuted nasal bone fracture. 2. Nasal septal fracture. 3. Medial wall right maxillary sinus fracture. 4. Comminuted nondisplaced fracture of the left lateral orbital wall/granuloma or the zygomatic arch projections onto the orbital wall. 5. Small bilateral maxillary sinus air-fluid levels. Reviewed by: Stevie Buenrostro MD on 07/11/2024 3:02 PM PDT Approved by: Stevie Buenrostro MD on 07/11/2024 3:02 PM PDT Station ID: [id number]
[2024-07-11] MEDS: ACETAMINOPHEN 500 MG TABLET PO STA (15:52)
[2024-07-11] MEDS ORDERED: ONDANSETRON 4 MG/2 ML VIAL IVP PRN (17:57)
[2024-07-11] MEDS ORDERED: HYDROcod/ACETAM 5/325 MG TABLET PO PRN (17:57)
[2024-07-11] MEDS ORDERED: SODIUM CHLORIDE FLUSH 0.9% 10 ML SYRINGE IVP PRN (17:57)
[2024-07-11] MEDS ORDERED: HYDROmorphone 0.5 MG/0.5 ML SYRINGE IVP PRN (18:02)
[2024-07-11 18:08] LABS: BASOPHILS # (AUTO) 0.1 10^3/uL (0.0-0.1); BASOPHILS % (AUTO) 0.4 %; EOSINOPHILS # (AUTO) 0.2 10^3/uL (0.0-0.7); EOSINOPHILS % (AUTO) 2.1 %; HCT - HEMATOCRIT 36.3 % (37.0-47.0); HGB - HEMOGLOBIN 11.8 g/dL (12.0-16.0); LYMPHOCYTES % (AUTO) 17.7 %; MEAN CORPUSCULAR HEMOGLOBIN 30.3 pg (27.0-31.0); MEAN CORPUSCULAR HGB CONC 32.5 g/dL (32.0-36.0); MEAN CORPUSCULAR VOLUME 93.1 fL (81.0-99.0); MEAN PLATELET VOLUME 8.7 fL (7.9-10.8); MONOCYTES % (AUTO) 8.8 %; NEUTROPHILS # (AUTO) 7.9 10^3/uL (1.5-6.6); NEUTROPHILS % (AUTO) 70.6 %; PLT - PLATELET COUNT 232 10^3/uL (130-450); RED CELL DISTRIBUTION WIDTH 13.2 % (12.0-15.0); WHITE BLOOD COUNT 11.2 x10^3/uL (4.8-10.8)
--- NOTE | 2024-07-11 18:11 | CONSULTATION NOTE ---
Referring Provider Name of Referring Provider:: Linda Small MD Consult Date: 07/11/24 Chief Complaint - Chief Complaint Chief Complaint: Facial pain History of Present Illness - Admitted From Admitted From:: ER - History of Present Illness HPI Comment/Other: Today Shalonda was walking and tripped on a hose, falling and striking her face on the ground. She denies any loss of consciousness. She denies any vision changes except for mild increase in blurriness from the left eye. She was not wearing glasses at the time of the fall. She does wear glasses regularly and she does have an toy mechanic who she visits for macular degeneration of the right eye. She is concerned that this fall could have aggravated the macular degeneration of the right eye. She is accompanied by her 2 daughters. She is sipping water. She is concerned about the difficulty breathing through her nose and also the cosmetic deformity of her nose after this fall. She wears dentures and she notes that her occlusion has unchanged since the fall. She denies any dizziness or vomiting. She denies any numbness or tingling of the hands or feet. She denies any neck tenderness. 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: Ovarian cysts : reports: None HEENT: reports: None Psych: reports: Anxiety Musculoskeletal: reports: None, Gout, Other Derm: reports: None MRSA Hx?: No - Past Surgical History General: reports: Cholecystectomy, Bowel surgery, Other Ortho: reports: Other /IMAGING TECHNOLOGIST: - POLST Patient has POLST: No Meds/Allgy - Home Medications Home Medications: Ambulatory Orders Medication Instructions Recorded Confirmed Febuxostat [Uloric] 40 mg PO DAILY 04/27/13 07/11/24 Meloxicam [Mobic] 7.5 mg PO BID PRN #20 tablet 11/10/17 07/11/24 Nebivolol HCl [Bystolic] 5 mg PO DAILY 03/01/19 07/11/24 buPROPion [Wellbutrin Xl] 300 mg PO DAILY 03/01/19 07/11/24 Buspirone HCl 10 mg PO DAILY 07/11/24 07/11/24 Citalopram Hydrobromide [Celexa] 20 mg PO DAILY 07/11/24 07/11/24 Glimepiride [Amaryl] 2 mg PO 0800 07/11/24 07/11/24 Omeprazole 20 mg PO BID 07/11/24 07/11/24 Rosuvastatin Calcium 10 mg PO HS 07/11/24 07/11/24 Valsartan [Diovan] 40 mg PO DAILY 07/11/24 07/11/24 allopurinoL [Zyloprim] 100 mg PO DAILY 07/11/24 07/11/24 - Allergies Allergies/Adverse Reactions: Allergies Allergy/AdvReac Type Severity Reaction Status Date / Time colchicine Allergy Severe Diarrhea Verified 07/11/24 12:52 Penicillins Allergy Intermediate Rash/Swelli Verified 07/11/24 12:52 ng sulfamethoxazole Allergy Intermediate Rash Verified 07/11/24 12:52 [From Bactrim] trimethoprim [From Bactrim] Allergy Intermediate Rash Verified 07/11/24 12:52 Gadolinium-Containing AdvReac Severe Nausea/Vomi Verified 07/11/24 12:52 Contrast Medi ting Review of Systems - Constitutional Constitutional: reports: Other ( A 14 point review of systems was completed and found to be negative except as noted above in HPI.) Exam - Vital Signs Reviewed Vital Signs: Yes Vital Signs: Vital Signs x48h Temp Pulse Resp BP Pulse Ox 07/11/24 16:52 69 14 187/85 H 98 07/11/24 16:00 68 18 148/87 H 98 07/11/24 15:00 68 17 152/91 H 100 07/11/24 12:53 36.6 C 83 18 170/96 H 97 - Physical Exam General Appearance: positive: No acute distress, Alert Eyes Bilateral: positive: PERRL, EOMI, Other ( Moderate conjunctivitis OS. No subconjunctival hemorrhage. Moderate left periorbital edema and ecchymosis. Mild right periorbital ecchymosis.) ENT: positive: Other ( Dried blood in the nose. Bilateral nares nonpatent. Visible deformity of the bridge of the nose. Visible deviation to the right of the bridge of the nose as well as of the nasal tip. No septal hematoma. No active bleeding from the nose.) Neck: positive: Other ( Mild tenderness of the paraspinal muscles no midline tenderness. No submandibular swelling or bruising.) Respiratory: positive: Chest non-tender, No respiratory distress Cardiovascular: positive: Regular rate & rhythm Peripheral Pulses: positive: 2+ Abdomen: positive: Non-tender, No distention Extremities: positive: Full ROM Neurologic/Psychiatric: positive: CN's nml (2-12) Conclusion and Plan - Lab Results Laboratory Results 07/11/24 18:02: WBC 11.2 H, RBC 3.90 L, Hgb 11.8 L, Hct 36.3 L, MCV 93.1, MCH 30.3, MCHC 32.5, RDW 13.2, Plt Count 232, MPV 8.7, Neut # (Auto) 7.9 H, Lymph # (Auto) 2.0, [place] # (Auto) 1.0, Eos # (Auto) 0.2, Baso # (Auto) 0.1, Absolute Nucleated RBC 0.00, Nucleated RBC % 0.0 - Diagnostic Imaging Results Diagnostic Imaging Results Comments: Comminuted bilateral nasal bones . Moderately displaced nasal septum, deviated to the left. Mild to moderate displacement of the nasal bones to the right. There is a fracture of the left orbital rim right at the junction with the left zygomatic arch. this fracture is nondisplaced. - Diagnosis Diagnosis: Comminuted fracture of the bilateral nasal bones and septum. - Consultation Note Consultation Note: 79-year-old female status post ground-level fall sustaining a comminuted fracture of the bilateral nasal bones and septum. There is also a 2-1/2 cm laceration involving the upper lip and the left naris. This laceration is superficial. It does need to be repaired but probably only the skin layer needs to be repaired. Untreated her nasal bones and septal fracture will cause significant deformity and possibly difficulty breathing. The risks, benefits, and alternatives of closed reduction of the bilateral nasal bones and septum with repair of the laceration was discussed with the patient including pain, swelling, bleeding, infection, need for further surgery, difficulty breathing, poor cosmesis. adequate time was given answer all questions. She elects to have the bilateral nasal bones and septum repaired. Her daughters were present and also agree with this plan. - Plan Plan: We anticipate closed reduction of the bilateral nasal bones and septum tomorrow in the operating room. She can have dinner. She needs to be n.p.o. after midnight. She needs 900 mg of clindamycin administered by anesthesia prior to surgery. We expect a place intranasal packings and an extra nasal splint. She can be discharged the same day as the surgery. She needs to follow-up 5 days after the surgery to have that intranasal packing is removed. The extra nasal packing will fall out on its own usually after 1 to 3 weeks. The laceration will be repaired tomorrow as well. The sutures need to come out in 7 days. During the time that the intranasal packing is in place she needs to be on Clindamycin. Elevate head of bed 30 degrees N.p.o. after midnight Thank you for including me in the care of this patient. If you have any questions please call me on my cell phone. [phone]. Andrew Viramontes DDS
[2024-07-11 18:13] LABS: INR 1.1 (0.8-1.2); PT - PROTHROMBIN TIME 11.8 secs (9.9-12.6)
--- NOTE | 2024-07-11 18:25 | HISTORY & PHYSICAL EXAMINATION ---
Chief Complaint - Chief Complaint Chief Complaint: Facial trauma History of Present Illness - Admitted From Admitted From:: Emergency room - History of Present Illness HPI Comment/Other: The patient is an 79-year-old female with past medical history significant for hypertension, hyperlipidemia and well-controlled type 2 diabetes. She was in her usual state of health until this afternoon when she tripped outside and fell on a hr associate. She hit her face and her head but did not lose consciousness. In the emergency room she had a CT scan of the head which revealed a markedly comminuted nasal bone fracture and nasal septal fracture but otherwise no evidence of a bleed. Facial bone CT revealed a severely comminuted nasal bone fracture, nasal septal fracture medial wall right maxillary sinus fracture and comminuted nondisplaced fracture of the left lateral orbital wall. Maxillofacial surgery was consulted who plans to take the patient to the operating room tomorrow. Sound physicians were consulted for medical management and pain control. When I went to see the patient she is resting in the bed. She is received 1000 mg of Tylenol and seems to be comfortable at the time of my visit. She denies fever or chills. No chest pain or heart palpitations. No nausea vomiting or diarrhea. No urinary complaints. The patient elects to be a full code. A POLST was filled out. 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: Ovarian cysts : reports: None HEENT: reports: None Psych: reports: Anxiety Musculoskeletal: reports: None, Gout, Other Derm: reports: None MRSA Hx?: No - Past Surgical History General: reports: Cholecystectomy, Bowel surgery, Other Ortho: reports: Other /LOCOMOTIVE CRANE ENGINEER: - POLST Patient has POLST: No Meds/Allgy - Home Medications Home Medications: Ambulatory Orders Medication Instructions Recorded Confirmed Febuxostat [Uloric] 40 mg PO DAILY 04/27/13 07/11/24 Meloxicam [Mobic] 7.5 mg PO BID PRN #20 tablet 11/10/17 07/11/24 Nebivolol HCl [Bystolic] 5 mg PO DAILY 03/01/19 07/11/24 buPROPion [Wellbutrin Xl] 300 mg PO DAILY 03/01/19 07/11/24 Buspirone HCl 10 mg PO DAILY 07/11/24 07/11/24 Citalopram Hydrobromide [Celexa] 20 mg PO DAILY 07/11/24 07/11/24 Glimepiride [Amaryl] 2 mg PO 0800 07/11/24 07/11/24 Omeprazole 20 mg PO BID 07/11/24 07/11/24 Rosuvastatin Calcium 10 mg PO HS 07/11/24 07/11/24 Valsartan [Diovan] 40 mg PO DAILY 07/11/24 07/11/24 allopurinoL [Zyloprim] 100 mg PO DAILY 07/11/24 07/11/24 - Allergies Allergies/Adverse Reactions: Allergies Allergy/AdvReac Type Severity Reaction Status Date / Time colchicine Allergy Severe Diarrhea Verified 07/11/24 12:52 Penicillins Allergy Intermediate Rash/Swelli Verified 07/11/24 12:52 ng sulfamethoxazole Allergy Intermediate Rash Verified 07/11/24 12:52 [From Bactrim] trimethoprim [From Bactrim] Allergy Intermediate Rash Verified 07/11/24 12:52 Gadolinium-Containing AdvReac Severe Nausea/Vomi Verified 07/11/24 12:52 Contrast Medi ting Review of Systems - Constitutional Constitutional: reports: Other (The patient complains of a mild headache) - All Other Systems All Other Systems: reports: Reviewed and negative Prior Level of Functionality: The patient lives alone and is fully independent with her ADLs Exam - Vital Signs Vital Signs: Vital Signs x48h Temp Pulse Resp BP Pulse Ox 07/11/24 16:52 69 14 187/85 H 98 07/11/24 16:00 68 18 148/87 H 98 07/11/24 15:00 68 17 152/91 H 100 07/11/24 12:53 36.6 C 83 18 170/96 H 97 - Physical Exam General Appearance: positive: No acute distress Eyes Bilateral: positive: Other (The patient has left periorbital edema and ecchymosis with mild right periorbital ecchymosis. She has visible deformity of the bridge of her nose) Neck: positive: Nml inspection Respiratory: positive: Chest non-tender, No respiratory distress, Breath sounds nml Cardiovascular: positive: Regular rate & rhythm, No murmur, No gallop. negative: Friction rub Abdomen: positive: Non-tender, No organomegaly, Nml bowel sounds Skin: positive: Color nml, No rash, Warm, Dry Extremities: positive: Non-tender, Full ROM Neurologic/Psychiatric: positive: Oriented x3, CN's nml (2-12) Sepsis Event Note (H) - Evaluation Current Stage of Sepsis: Ruled out Conclusion/Plan - Problem List (1) Nasal bone fracture Conclusion/Plan: The patient has been seen by Dr. Viramontes who plans to take the patient to the operating room tomorrow. She will be made n.p.o. after midnight. Will obtain an EKG as 1 was not obtained on admission. The patient's pain seems to be keshawn quately controlled with Tylenol. Will place her on scheduled Tylenol for the next 24 hours. She will have oxycodone and low-dose IV Dilaudid available for moderate and severe pain Qualifiers: Encounter type: initial encounter Fracture type: closed Qualified Code(s): S02.2XXA - Fracture of nasal bones, initial encounter for closed fracture (2) Maxillary sinus fracture Conclusion/Plan: As above Qualifiers: Encounter type: initial encounter Fracture type: closed Qualified Code(s): S02.401A - Maxillary fracture, unspecified side, initial encounter for closed fracture (3) Medial orbital wall fracture Conclusion/Plan: As above Qualifiers: Encounter type: initial encounter Fracture type: closed Laterality: left Qualified Code(s): S02.832A - Fracture of medial orbital wall, left side, initial encounter for closed fracture (4) Hypertension Conclusion/Plan: She will continue her home dose of valsartan 40 mg daily (5) Hyperlipidemia Conclusion/Plan: Continue Crestor 10 mg daily (6) Type 2 diabetes mellitus Conclusion/Plan: Her glimepiride will be held. She will have sliding scale coverage during this hospitalization (7) Mild major depression Conclusion/Plan: She will continue bupropion 300 mg daily and citalopram 20 mg daily (9) Gout Conclusion/Plan: Continue home dose of allopurinol Disposition: The patient will be placed in observation in the hospital. Per maxillofacial surgery the patient likely will go home after her surgical procedure tomorrow. Time spent: 45 minutes - Lab Results Fish Bones: 07/11/24 18:02 07/11/24 18:02
[2024-07-11 18:27] LABS: ALBUMIN 4.3 g/dL (3.2-5.5); BILIRUBIN,TOTAL 0.3 mg/dL (0.2-1.0); CALCIUM 9.7 mg/dL (8.5-10.3); CREATININE 1.1 mg/dL (0.6-1.3); POTASSIUM 4.3 mmol/L (3.5-4.5); TOTAL PROTEIN 6.5 g/dL (6.4-8.9)
[2024-07-11] MEDS ORDERED: NON FORMULARY MED (Omeprazole [Omeprazole] 20 MG Tablet.Dr) PO SCH (21:00)
[2024-07-11] MEDS: ATORVASTATIN 10 MG TABLET PO SCH (21:19)
[2024-07-11] MEDS: ACETAMINOPHEN 500 MG TABLET PO SCH (21:19)
[2024-07-11] MEDS: INSULIN LISPRO 300 UNIT/3 ML PEN SUBQ SCH (21:22)
[2024-07-11] MEDS: SODIUM CHLORIDE FLUSH 0.9% 10 ML SYRINGE IVP SCH (21:24)
[2024-07-12] MEDS: oxyCODONE 5 MG TABLET PO PRN (05:08)
[2024-07-12 05:57] LABS: BASOPHILS % (AUTO) 0.5 %; EOSINOPHILS # (AUTO) 0.2 10^3/uL (0.0-0.7); EOSINOPHILS % (AUTO) 2.9 %; HCT - HEMATOCRIT 35.7 % (37.0-47.0); HGB - HEMOGLOBIN 11.1 g/dL (12.0-16.0); LYMPHOCYTES # (AUTO) 1.8 10^3/uL (1.5-3.5); LYMPHOCYTES % (AUTO) 21.5 %; MEAN CORPUSCULAR HEMOGLOBIN 29.4 pg (27.0-31.0); MEAN CORPUSCULAR HGB CONC 31.1 g/dL (32.0-36.0); MEAN CORPUSCULAR VOLUME 94.7 fL (81.0-99.0); MEAN PLATELET VOLUME 9.2 fL (7.9-10.8); MONOCYTES # (AUTO) 0.9 10^3/uL (0.0-1.0); MONOCYTES % (AUTO) 10.1 %; NEUTROPHILS # (AUTO) 5.4 10^3/uL (1.5-6.6); NEUTROPHILS % (AUTO) 64.8 %; PLT - PLATELET COUNT 223 10^3/uL (130-450); RED BLOOD COUNT 3.77 10^6/uL (4.20-5.40); RED CELL DISTRIBUTION WIDTH 13.2 % (12.0-15.0); WHITE BLOOD COUNT 8.4 x10^3/uL (4.8-10.8)
[2024-07-12 06:16] LABS: ALBUMIN 3.9 g/dL (3.2-5.5); CALCIUM 9.1 mg/dL (8.5-10.3); MAGNESIUM 1.8 mg/dL (1.7-2.3); PHOSPHORUS 4.4 mg/dL (2.5-5.0); POTASSIUM 4.3 mmol/L (3.5-4.5)
[2024-07-12] MEDS: INSULIN REGULAR, HUMAN 300 UNIT/3 ML PEN SUBQ SCH (06:50)
[2024-07-12] MEDS: PANTOPRAZOLE 40 MG TABLET PO SCH (06:50)
[2024-07-12] MEDS ORDERED: CITALOPRAM HYDROBROMIDE 20 MG TABLET PO SCH (09:00)
[2024-07-12] MEDS ORDERED: FEBUXOSTAT 40 MG PO SCH (09:00)
[2024-07-12] MEDS: allopurinoL 100 MG TABLET PO SCH (09:53)
[2024-07-12] MEDS: buPROPion XL 150 MG TABLET PO SCH (09:54)
[2024-07-12] MEDS: ESCITALOPRAM 10 MG TABLET PO SCH (09:54)
[2024-07-12] MEDS: LOSARTAN 50 MG TABLET PO SCH (09:54)
[2024-07-12] MEDS: NEBIVOLOL HCL 5 MG PO SCH (09:54)
[2024-07-12] MEDS: busPIRone 5 MG TABLET PO SCH (09:54)
--- NOTE | 2024-07-12 11:06 | PHARMACY PROGRESS NOTE ---
- Best Possible Medication History Admit Date and Time: 07/11/24 4793 Processed by: Pharmacy Medications reviewed in ED?: Yes Medication History completed: Yes Patient Interview: Completed (BY ER NURSE) Secondary Source(s): Other family member (DAUGHTER INTERVIEWED BY LIBRARIAN, NISHANT), Physician records, Insurance records As the person ultimately responsible for medication therapy, providers are able to order a medication from an existing home medication list in [facility] via the "Reconcile Routine" prior to Confirmation of that medication by product support rep. Such practice is discouraged except when the physician, in their clinical judgment, deems that a medical need exists for a medication without regard to previous use.
--- NOTE | 2024-07-12 11:49 | ANESTHESIA ---
Pre-Anesthesia VS, & Labs - Diagnosis Diagnosis Comminuted fracture of the bilateral nasal bones and septum. - Procedure closed reduction nasal fracture Vital Signs: Temp Pulse Resp BP Pulse Ox O2 Flow Rate 36.5 C 64 18 117/65 94 07/12/24 07:37 07/12/24 07:37 07/12/24 07:37 07/12/24 07:37 07/12/24 07:37 Height: 5 ft 4 in Weight (kg): 77 kg Body Mass Index: 29.1 BMI Classification: Overweight - NPO >8 hours - Is Patient ?: No - Lab Results Current Lab Results: Laboratory Tests 07/12/24 11:16: POC Whole Bld Glucose 132 H 07/12/24 06:17: POC Whole Bld Glucose 161 H 07/12/24 05:00: Sodium 138, Potassium 4.3, Chloride 106, Carbon Dioxide 23, Anion Gap 9.0, BUN 24 H, Creatinine 1.0, Estimated GFR (MDRD) 53 L, Glucose 147 H, Calcium 9.1, Phosphorus 4.4, Magnesium 1.8, Albumin 3.9 07/12/24 05:00: WBC 8.4, RBC 3.77 L, Hgb 11.1 L, Hct 35.7 L, MCV 94.7, MCH 29.4, MCHC 31.1 L, RDW 13.2, Plt Count 223, MPV 9.2, Neut # (Auto) 5.4, Lymph # (Auto) 1.8, [place] # (Auto) 0.9, Eos # (Auto) 0.2, Baso # (Auto) 0.0, Absolute Nucleated RBC 0.00, Nucleated RBC % 0.0 07/11/24 23:50: POC Whole Bld Glucose 200 H 07/11/24 20:43: POC Whole Bld Glucose 154 H 07/11/24 18:02: Sodium 137, Potassium 4.3, Chloride 105, Carbon Dioxide 23, Anion Gap 9.0, BUN 25 H, Creatinine 1.1, Estimated GFR (MDRD) 48 L, Glucose 81, Calcium 9.7, Total Bilirubin 0.3, AST 16, ALT 13, Alkaline Phosphatase 66, Total Protein 6.5, Albumin 4.3, Globulin 2.2, Albumin/Globulin Ratio 2.0, Lipase 46 09/03/24 18:02: PT 11.8, INR 1.1 07/11/24 18:02: WBC 11.2 H, RBC 3.90 L, Hgb 11.8 L, Hct 36.3 L, MCV 93.1, MCH 30.3, MCHC 32.5, RDW 13.2, Plt Count 232, MPV 8.7, Neut # (Auto) 7.9 H, Lymph # (Auto) 2.0, [place] # (Auto) 1.0, Eos # (Auto) 0.2, Baso # (Auto) 0.1, Absolute Nucleated RBC 0.00, Nucleated RBC % 0.0 Fish Bones: 07/12/24 05:00 07/12/24 05:00 Home Medications and Allergies Home Medications: Ambulatory Orders Buspirone HCl 10 mg PO DAILY 07/11/24 Glimepiride [Amaryl] 3 mg PO 0800 07/11/24 Omeprazole 20 mg PO BID 07/11/24 Rosuvastatin Calcium 10 mg PO HS 07/11/24 Valsartan [Diovan] 40 mg PO DAILY 07/11/24 allopurinoL [Zyloprim] 100 mg PO DAILY 07/11/24 Escitalopram Oxalate 20 mg PO DAILY 07/12/24 Nebivolol HCl 5 mg PO DAILY 07/12/24 Active Medications Acetaminophen (Acetaminophen 500 Mg Tablet) 1,000 mg PO Q6H [facility] Last Admin: 07/12/24 05:08 Dose: 1,000 mg Allopurinol (Allopurinol 100 Mg Tablet) 100 mg PO DAILY [facility] Last Admin: 07/12/24 09:53 Dose: Not Given Atorvastatin Calcium (Atorvastatin 10 Mg Tablet) 20 mg PO [facility] Last Admin: 07/11/24 21:19 Dose: 20 mg Bupropion HCl (Bupropion Xl 150 Mg Tablet) 150 mg PO DAILY [facility] Last Admin: 07/12/24 09:54 Dose: Not Given Buspirone HCl (Buspirone 5 Mg Tablet) 10 mg PO DAILY [facility] Last Admin: 07/12/24 09:54 Dose: Not Given Escitalopram Oxalate (Escitalopram 10 Mg Tablet) 20 mg PO DAILY [facility] Last Admin: 07/12/24 09:54 Dose: Not Given Hydromorphone HCl (Hydromorphone 0.5 Mg/0.5 Ml Syringe) 0.5 mg IVP Q3H PRN PRN Reason: PAIN >8 Insulin Human Lispro (Insulin Lispro 300 Unit/3 Ml Pen) 1 - 5 unit SUBQ 0800,1200,1700,2100 [facility]; Protocol Last Admin: 07/11/24 21:22 Dose: 1 unit Insulin Human Regular (Insulin Regular, Human 300 Unit/3 Ml Pen) 1 - 5 unit SUBQ Q6HR [facility]; Protocol Last Admin: 07/12/24 11:36 Dose: Not Given Losartan Potassium (Losartan 50 Mg Tablet) 25 mg PO DAILY [facility] Last Admin: 07/12/24 09:54 Dose: Not Given Ondansetron HCl (Ondansetron 4 Mg/2 Ml Vial) 4 mg IVP Q6HR PRN PRN Reason: Nausea / Vomiting Oxycodone HCl (Oxycodone 5 Mg Tablet) 5 mg PO Q4H PRN PRN Reason: PAIN 5-7 Last Admin: 07/12/24 05:08 Dose: 5 mg Pantoprazole Sodium (Pantoprazole 40 Mg Tablet) 40 mg PO BIDAC [facility] Last Admin: 07/12/24 06:50 Dose: 40 mg Nebivolol Hcl [ Bystolic] 5 Mg Tablet 1 each PO DAILY [facility] Last Admin: 07/12/24 09:54 Dose: Not Given Sodium Chloride (Sodium Chloride Flush 0.9% 10 Ml Syringe) 10 ml IVP PRN PRN PRN Reason: NEEDED PER PROVIDER ORDERS Sodium Chloride (Sodium Chloride Flush 0.9% 10 Ml Syringe) 10 ml IVP 0100,0900,1700 [facility] Last Admin: 07/12/24 09:10 Dose: 10 ml buPROPion [Wellbutrin Xl] 150 mg PO DAILY 03/01/19 Buspirone HCl 10 mg PO DAILY 07/11/24 Glimepiride [Amaryl] 3 mg PO 0800 07/11/24 Omeprazole 20 mg PO BID 07/11/24 Rosuvastatin Calcium 10 mg PO HS 07/11/24 Valsartan [Diovan] 40 mg PO DAILY 07/11/24 allopurinoL [Zyloprim] 100 mg PO DAILY 07/11/24 Escitalopram Oxalate 20 mg PO DAILY 07/12/24 Nebivolol HCl 5 mg PO DAILY 07/12/24 Allergies/Adverse Reactions: Allergies Allergy/AdvReac Type Severity Reaction Status Date / Time colchicine Allergy Severe Diarrhea Verified 07/11/24 12:52 Penicillins Allergy Intermediate Rash/Swelli Verified 07/11/24 12:52 ng sulfamethoxazole Allergy Intermediate Rash Verified 07/11/24 12:52 [From Bactrim] trimethoprim [From Bactrim] Allergy Intermediate Rash Verified 07/11/24 12:52 Gadolinium-Containing AdvReac Severe Nausea/Vomi Verified 07/11/24 12:52 Contrast Medi ting Anes History & Medical History - Anesthetic History Anesthesia Complications: reports: No previous complications - Medical History Cardiovascular: reports: Hypertension, High cholesterol Pulmonary: reports: Shortness of breath (patient states had diagnosis of idiopathic pulmonary fibrosis, no O2, no inhalers, SOA on extertion at times but independent with ADL's), Sleep apnea Gastrointestinal: reports: GERD, Pancreatitis, Diverticulitis Urinary: reports: None Neuro: reports: Head injury, Migraines Musculoskeletal: reports: Gout, Chronic back pain, Other Endocrine/Autoimmune: reports: Type 2 diabetes Blood Disorders: reports: None Skin: reports: Psoriasis Smoking Status: Former smoker Other Past Medical History: right ovarian tumor removed - Surgical History General: reports: Cholecystectomy, Appendectomy, Bowel surgery, Colonoscopy, Other Eyes Ears Nose Throat (EENT): reports: Cataracts, Tonsil/Adenoidectomy Gynecologic: reports: Dilation and currettage, Oophrectomy Orthopedic: reports: Other Exam General: Alert, Oriented x3 Dental: WNL Neck Mobility: Normal Mallampati classification: II Thyromental Distance: greater than 6 cm Respiratory: Lungs clear Cardiovascular: Regular rate Plan Anesthesia Type: General Consent for Procedure(s) Verified and Reviewed: Yes Code Status: Attempt Resuscitation ASA classification: 2-Mild systemic disease Is this case an emergency?: No
[2024-07-12] MEDS ORDERED: OXYMETAZOLINE HCL 100 SPRAYS BOTTLE ONE (12:23)
[2024-07-12] MEDS ORDERED: MINERAL OIL/PETROLAT OPHTH OINT ONE (12:23)
[2024-07-12] MEDS ORDERED: LIDOCAINE 1%-EPI 1:100000 20 ML MDV ONE (12:23)
[2024-07-12] MEDS ORDERED: BACITRACIN ZINC OINT 1 PACKET TOP ONE ×2 (12:23→13:41)
[2024-07-12] MEDS ORDERED: PROPOFOL 200 MG/20 ML VIAL IVP ONE (12:59)
[2024-07-12] MEDS ORDERED: fentaNYL 100 MCG/2 ML VIAL ONE ×2 (13:00→14:35)
[2024-07-12] MEDS ORDERED: LIDOCAINE-PF 2% 10 ML AMP SUBQ ONE (13:21)
[2024-07-12] MEDS ORDERED: CLINDAMYCIN 900 MG/50 ML 900 MG/50 ML BAG IV ONE (13:23)
[2024-07-12] MEDS: LIDOCAINE 1%-EPI 1:100000 50 ML VIAL IJ ONE (13:45)
[2024-07-12] MEDS: MINERAL OIL/PETROLAT OPHTH OINT EACHEYE ONE (13:45)
[2024-07-12] MEDS: OXYMETAZOLINE HCL 100 SPRAYS BOTTLE NAS ONE (13:45)
[2024-07-12] MEDS: BACITRACIN ZINC OINT 14 GM TOP ONE (13:45)
[2024-07-12] MEDS: LACTATED RINGERS 750 ML IV ONE (14:17)
[2024-07-12] MEDS ORDERED: HYDROmorphone 0.5 MG/0.5 ML SYRINGE ONE (14:25)
--- NOTE | 2024-07-12 14:27 | OPERATIVE REPORT ---
Operative Report - General Admit Date: 07/11/24 Procedure Date: 07/12/24 Planned Procedure: CR B nasal bones and septum with internal packing and external nasal splint. simple closure of 2 cm laceration of L naris and upper lip. Pre-Op Diagnosis: Fracture of B NB and septum and laceration Procedure Performed: closed reduction of the bilateral nasal bones and septum with internal and external nasal splint simple closure of 2cm laceration of the left naris and upper lip. Post Op Diagnosis: Fracture of B NB and septum and laceration - Procedure Note Primary Surgeon: Andrew Viramontes DDS Anesthesia Provider: Felecia Diana CRNA Anesthesia Technique: General LMA IV Fluids (mL): 300 Estimated Blood Loss (mL): 10 Indications: s/p GLF onto a activity leader. Sustained a L orbital fracture and B NB and septum fracture. It was decided that the orbit was non-operative but that the nasal bones and septum should be repaired. The RBAs were discussed with the patient and informed consent was obtained after all questions were answered. Findings: The patient was brought to the main operating room and placed in the supine position on the operating table. General anesthesia was induced by the anesthesia team and the airway was secured with an LMA. The arms were padded and checked. The arms were not tucked. The laceration of the left nose was prepped with iodine. The patient was draped in the standard fashion for closed reduction of the nasal bones fracture and closure of a facial laceration. The eyes were protected with Lacri-Lube and Tegaderms. A throat pack was placed. A formal timeout was executed. Local anesthesia was achieved with 1% lidocaine with 1-100,000 epinephrine. 3 cc were administered. Quarter inch neuro patties x 5 were placed into the bilateral naris. The neuro patties were soaked in Afrin. After being in place for 5 minutes they were removed. A Corson elevator was used to reduce the nasal bones.Septal forcep was used to reduce the nasal septum. The nasal bleeding was stymied with Afrin soaked neuro patties. They were left in place for another 5 minutes. During this time attention was directed the left naris into the left upper lip. The wound was closed after it was washed out thoroughly with sterile saline. It was closed with 5-0 Prolene in a simple fashion. Interrupted sutures were placed. The Afrin-soaked cottonoids were removed from the nose. Bleeding was stopped. The superior aspect of the nose was packed with quarter inch iodoform soaked in bacitracin. A single police was placed on the left and on the right. Merisel splints were then placed in the left and right nares. The nose was cleaned off. The skin was prepped. A dorsal nasal splint, a Bird splint, was placed. Good hemostasis was verified. The nasal packings were secured into place with a silk suture, trans septal. The throat pack was removed. This marked the end of the case. The patient was emerged uneventfully from anesthesia. She was transferred to the PACU in stable condition. Complications: none
[2024-07-12] MEDS: HYDROmorphone 0.5 MG/0.5 ML SYRINGE IVP PRN (14:30)
[2024-07-12] MEDS ORDERED: ATROPINE ABBOJECT 1 MG/10 ML SYRINGE IVP PRN (14:30)
[2024-07-12] MEDS ORDERED: MORPHINE 2 MG/ML CARPUJECT IVP PRN (14:30)
[2024-07-12] MEDS ORDERED: METOCLOPRAMIDE 10 MG/2 ML VIAL IVP PRN (14:30)
[2024-07-12] MEDS ORDERED: ePHEDrine 50 MG/ML VIAL IVP PRN (14:30)
[2024-07-12] MEDS ORDERED: ONDANSETRON 4 MG/2 ML VIAL IVP PRN (14:30)
[2024-07-12] MEDS ORDERED: NALOXONE 0.4 MG/ML VIAL IVP PRN (14:30)
--- NOTE | 2024-07-12 14:32 | ANESTHESIA POST OP EVALUATION ---
Anesthesia Post Eval - Post Anesthesia Eval Vitals: Last Vital Signs Temp 36.7 C 07/12/24 12:42 Pulse 67 07/12/24 12:42 Resp 20 07/12/24 12:42 BP 114/64 07/12/24 12:42 Pulse Ox 95 07/12/24 12:42 O2 Flow Rate CV Function Including HR & BP: Stable Pain Control: Satisfactory Nausea & Vomiting: Negative Mental Status: Baseline Respiratory Status: Airway Patent Hydration Status: Satisfactory Anesthesia Complications: None
[2024-07-12] MEDS: fentaNYL 100 MCG/2 ML VIAL IVP PRN (14:40)
[2024-07-12] MEDS: KETOROLAC 30 MG/ML VIAL ONE (14:45)
[2024-07-12] MEDS: LACTATED RINGERS 1,000 ML IV SCH (15:30)
--- NOTE | 2024-07-12 15:32 | ANESTHESIA POST OP EVALUATION ---
Anesthesia Post Eval - Post Anesthesia Eval Vitals: Last Vital Signs Temp 36.7 C 07/12/24 15:10 Pulse 74 07/12/24 15:10 Resp 16 07/12/24 15:10 BP 149/82 H 07/12/24 15:10 Pulse Ox 98 07/12/24 15:10 O2 Flow Rate CV Function Including HR & BP: Stable Pain Control: Satisfactory Nausea & Vomiting: Negative Mental Status: Baseline Respiratory Status: Airway Patent Hydration Status: Satisfactory Anesthesia Complications: None
--- NOTE | 2024-07-12 15:35 | ANESTHESIA ---
Pre-Anesthesia VS, & Labs - Diagnosis Diagnosis Comminuted fracture of the bilateral nasal bones and septum. - Procedure closed nasal reduction and wound closure on nose Vital Signs: Temp Pulse Resp BP Pulse Ox O2 Flow Rate 36.7 C 71 12 146/69 H 91 L 3.5 07/12/24 15:25 07/12/24 15:25 07/12/24 15:25 07/12/24 15:25 07/12/24 15:25 07/12/24 15:25 Height: 5 ft 4 in Weight (kg): 77 kg Body Mass Index: 29.1 BMI Classification: Overweight - NPO >8 hours - Is Patient ?: No - Lab Results Current Lab Results: Laboratory Tests 07/12/24 14:20: POC Whole Bld Glucose 115 H 07/12/24 11:16: POC Whole Bld Glucose 132 H 07/12/24 06:17: POC Whole Bld Glucose 161 H 07/12/24 05:00: Sodium 138, Potassium 4.3, Chloride 106, Carbon Dioxide 23, Anion Gap 9.0, BUN 24 H, Creatinine 1.0, Estimated GFR (MDRD) 53 L, Glucose 147 H, Calcium 9.1, Phosphorus 4.4, Magnesium 1.8, Albumin 3.9 07/12/24 05:00: WBC 8.4, RBC 3.77 L, Hgb 11.1 L, Hct 35.7 L, MCV 94.7, MCH 29.4, MCHC 31.1 L, RDW 13.2, Plt Count 223, MPV 9.2, Neut # (Auto) 5.4, Lymph # (Auto) 1.8, [place] # (Auto) 0.9, Eos # (Auto) 0.2, Baso # (Auto) 0.0, Absolute Nucleated RBC 0.00, Nucleated RBC % 0.0 07/11/24 23:50: POC Whole Bld Glucose 200 H 07/11/24 20:43: POC Whole Bld Glucose 154 H 07/11/24 18:02: Sodium 137, Potassium 4.3, Chloride 105, Carbon Dioxide 23, Anion Gap 9.0, BUN 25 H, Creatinine 1.1, Estimated GFR (MDRD) 48 L, Glucose 81, Calcium 9.7, Total Bilirubin 0.3, AST 16, ALT 13, Alkaline Phosphatase 66, Total Protein 6.5, Albumin 4.3, Globulin 2.2, Albumin/Globulin Ratio 2.0, Lipase 46 07/11/24 18:02: PT 11.8, INR 1.1 07/11/24 18:02: WBC 11.2 H, RBC 3.90 L, Hgb 11.8 L, Hct 36.3 L, MCV 93.1, MCH 30.3, MCHC 32.5, RDW 13.2, Plt Count 232, MPV 8.7, Neut # (Auto) 7.9 H, Lymph # (Auto) 2.0, [place] # (Auto) 1.0, Eos # (Auto) 0.2, Baso # (Auto) 0.1, Absolute Nucleated RBC 0.00, Nucleated RBC % 0.0 Fish Bones: 07/12/24 05:00 07/12/24 05:00 Home Medications and Allergies Home Medications: Ambulatory Orders Buspirone HCl 10 mg PO DAILY 07/11/24 Glimepiride [Amaryl] 3 mg PO 0800 07/11/24 Omeprazole 20 mg PO BID 07/11/24 Rosuvastatin Calcium 10 mg PO HS 07/11/24 Valsartan [Diovan] 40 mg PO DAILY 07/11/24 allopurinoL [Zyloprim] 100 mg PO DAILY 07/11/24 Escitalopram Oxalate 20 mg PO DAILY 07/12/24 Nebivolol HCl 5 mg PO DAILY 07/12/24 Active Medications Acetaminophen (Acetaminophen 500 Mg Tablet) 1,000 mg PO Q6H [facility] Last Admin: 07/12/24 12:50 Dose: Not Given Allopurinol (Allopurinol 100 Mg Tablet) 100 mg PO DAILY [facility] Last Admin: 07/12/24 09:53 Dose: Not Given Atorvastatin Calcium (Atorvastatin 10 Mg Tablet) 20 mg PO [facility] Last Admin: 07/11/24 21:19 Dose: 20 mg Bupropion HCl (Bupropion Xl 150 Mg Tablet) 150 mg PO DAILY [facility] Last Admin: 07/12/24 09:54 Dose: Not Given Buspirone HCl (Buspirone 5 Mg Tablet) 10 mg PO DAILY [facility] Last Admin: 07/12/24 09:54 Dose: Not Given Escitalopram Oxalate (Escitalopram 10 Mg Tablet) 20 mg PO DAILY [facility] Last Admin: 07/12/24 09:54 Dose: Not Given Hydromorphone HCl (Hydromorphone 0.5 Mg/0.5 Ml Syringe) 0.5 mg IVP Q3H PRN PRN Reason: PAIN >8 Insulin Human Lispro (Insulin Lispro 300 Unit/3 Ml Pen) 1 - 5 unit SUBQ 0800,1200,1700,2100 [facility]; Protocol Last Admin: 07/11/24 21:22 Dose: 1 unit Insulin Human Regular (Insulin Regular, Human 300 Unit/3 Ml Pen) 1 - 5 unit SUBQ Q6HR [facility]; Protocol Last Admin: 07/12/24 11:36 Dose: Not Given Losartan Potassium (Losartan 50 Mg Tablet) 25 mg PO DAILY [facility] Last Admin: 07/12/24 09:54 Dose: Not Given Ondansetron HCl (Ondansetron 4 Mg/2 Ml Vial) 4 mg IVP Q6HR PRN PRN Reason: Nausea / Vomiting Oxycodone HCl (Oxycodone 5 Mg Tablet) 5 mg PO Q4H PRN PRN Reason: PAIN 5-7 Last Admin: 07/12/24 05:08 Dose: 5 mg Pantoprazole Sodium (Pantoprazole 40 Mg Tablet) 40 mg PO BIDAC [facility] Last Admin: 07/12/24 06:50 Dose: 40 mg Nebivolol Hcl [ Bystolic] 5 Mg Tablet 1 each PO DAILY [facility] Last Admin: 07/12/24 09:54 Dose: Not Given Sodium Chloride (Sodium Chloride Flush 0.9% 10 Ml Syringe) 10 ml IVP PRN PRN PRN Reason: NEEDED PER PROVIDER ORDERS Sodium Chloride (Sodium Chloride Flush 0.9% 10 Ml Syringe) 10 ml IVP 0100,0900,1700 [facility] Last Admin: 07/12/24 09:10 Dose: 10 ml buPROPion [Wellbutrin Xl] 150 mg PO DAILY 03/01/19 Buspirone HCl 10 mg PO DAILY 07/11/24 Glimepiride [Amaryl] 3 mg PO 0800 07/11/24 Omeprazole 20 mg PO BID 07/11/24 Rosuvastatin Calcium 10 mg PO HS 07/11/24 Valsartan [Diovan] 40 mg PO DAILY 07/11/24 allopurinoL [Zyloprim] 100 mg PO DAILY 07/11/24 Escitalopram Oxalate 20 mg PO DAILY 07/12/24 Nebivolol HCl 5 mg PO DAILY 07/12/24 Allergies/Adverse Reactions: Allergies Allergy/AdvReac Type Severity Reaction Status Date / Time colchicine Allergy Severe Diarrhea Verified 07/11/24 12:52 Penicillins Allergy Intermediate Rash/Swelli Verified 07/11/24 12:52 ng sulfamethoxazole Allergy Intermediate Rash Verified 07/11/24 12:52 [From Bactrim] trimethoprim [From Bactrim] Allergy Intermediate Rash Verified 07/11/24 12:52 Gadolinium-Containing AdvReac Severe Nausea/Vomi Verified 07/11/24 12:52 Contrast Medi ting Anes History & Medical History - Anesthetic History Anesthesia Complications: reports: No previous complications - Medical History Cardiovascular: reports: Hypertension, High cholesterol Pulmonary: reports: Shortness of breath, Sleep apnea Gastrointestinal: reports: GERD, Pancreatitis, Diverticulitis Urinary: reports: None Neuro: reports: Head injury, Migraines Musculoskeletal: reports: Gout, Chronic back pain, Other Endocrine/Autoimmune: reports: Type 2 diabetes Blood Disorders: reports: None Skin: reports: Psoriasis Smoking Status: Former smoker Other Past Medical History: right ovarian tumor removed - Surgical History General: reports: Cholecystectomy, Appendectomy, Bowel surgery, Colonoscopy, Other Eyes Ears Nose Throat (EENT): reports: Cataracts, Tonsil/Adenoidectomy Gynecologic: reports: Dilation and currettage, Oophrectomy Orthopedic: reports: Other Exam General: Alert, Oriented x3 Dental: WNL, Dentures full Upper Mouth Opening: Greater than 4 Fingerbreadths Neck Mobility: Normal Mallampati classification: II Thyromental Distance: greater than 6 cm Respiratory: Lungs clear Cardiovascular: Regular rate Plan Anesthesia Type: General Consent for Procedure(s) Verified and Reviewed: Yes Code Status: Attempt Resuscitation ASA classification: 2-Mild systemic disease Is this case an emergency?: No
[2024-07-12] MEDS ORDERED: HYDROmorphone 0.5 MG/0.5 ML SYRINGE IVP PRN (17:08)
--- NOTE | 2024-07-12 17:08 | PROVIDER PROGRESS NOTE ---
Subjective - Prog Note Date Prog Note Date: 07/12/24 Prog Note Time: 17:00 - Subjective Subjective: I saw the patient after her surgical procedure today. She is feeling a little groggy from the surgery and is beginning to have some pain. The patient's da ughter is at the bedside and both the patient and daughter would feel more comfortable with her staying in the hospital overnight to make sure her pain is adequately controlled and to have the total effects of anesthesia wear off. She says that she has a headache. She is having some pressure and the numbness seems to be wearing off on her face. She is a little uncomfortable. She has had no fever or chills. No chest pain or heart palpitations. No nausea vomiting or diarrhea. No urinary complaints. Current Medications - Current Medications Current Medications: Active Medications Generic Name Dose Route Start Last Admin Trade Name Freq PRN Reason Stop Dose Admin Acetaminophen 1,000 mg 07/11/24 22:00 07/12/24 12:50 Acetaminophen 500 Mg Tablet PO Not Given Q6H KAREN Allopurinol 100 mg 07/12/24 09:00 07/12/24 09:53 Allopurinol 100 Mg Tablet PO Not Given DAILY KAREN Atorvastatin Calcium 20 mg 07/11/24 21:00 07/11/24 21:19 Atorvastatin 10 Mg Tablet PO 20 mg HS KAREN Administration Bupropion HCl 150 mg 07/12/24 09:00 07/12/24 09:54 Bupropion Xl 150 Mg Tablet PO Not Given DAILY KAREN Buspirone HCl 10 mg 07/12/24 09:00 07/12/24 09:54 Buspirone 5 Mg Tablet PO Not Given DAILY KAREN Clindamycin HCl 300 mg 07/12/24 21:00 Clindamycin 150 Mg Capsule PO QID KAREN Escitalopram Oxalate 20 mg 07/12/24 09:00 07/12/24 09:54 Escitalopram 10 Mg Tablet PO Not Given DAILY KAREN Insulin Human Lispro 1 - 5 unit 07/11/24 21:00 07/11/24 21:22 Insulin Lispro 300 Unit/3 Ml Pen SUBQ 1 unit 0800,1200,1700,2100 KAREN Administration Protocol Insulin Human Regular 1 - 5 unit 07/12/24 06:00 07/12/24 11:36 Insulin Regular, Human 300 Unit/3 Ml Pen SUBQ Not Given Q6HR [facility] Protocol Losartan Potassium 25 mg 07/12/24 09:00 07/12/24 09:54 Losartan 50 Mg Tablet PO Not Given DAILY KAREN Ondansetron HCl 4 mg 07/11/24 17:57 Ondansetron 4 Mg/2 Ml Vial IVP Q6HR PRN Nausea / Vomiting Oxycodone HCl 5 mg 07/11/24 18:04 07/12/24 05:08 Oxycodone 5 Mg Tablet PO 5 mg Q4H PRN Administration PAIN 5-7 Pantoprazole Sodium 40 mg 07/12/24 07:00 07/12/24 16:50 Pantoprazole 40 Mg Tablet PO 40 mg BIDAC KAREN Administration Nebivolol Hcl [ 1 each 07/12/24 09:00 07/12/24 09:54 Bystolic] 5 Mg PO Not Given Tablet DAILY KAREN Sodium Chloride 10 ml 07/11/24 17:57 Sodium Chloride Flush 0.9% 10 Ml Syringe IVP PRN PRN NEEDED PER PROVIDER ORDERS Sodium Chloride 10 ml 07/12/24 01:00 07/12/24 16:51 Sodium Chloride Flush 0.9% 10 Ml Syringe IVP 10 ml 0100,0900,1700 KAREN Administration buPROPion [Wellbutrin Xl] 150 mg PO DAILY 03/01/19 Buspirone HCl 10 mg PO DAILY 07/11/24 Glimepiride [Amaryl] 3 mg PO 0800 07/11/24 Omeprazole 20 mg PO BID 07/11/24 Rosuvastatin Calcium 10 mg PO HS 07/11/24 Valsartan [Diovan] 40 mg PO DAILY 07/11/24 allopurinoL [Zyloprim] 100 mg PO DAILY 07/11/24 Escitalopram Oxalate 20 mg PO DAILY 07/12/24 Nebivolol HCl 5 mg PO DAILY 07/12/24 Objective - Vital Signs/Intake & Output Reviewed Vital Signs: Yes Vital Signs: Vital Signs x48h Temp Pulse Pulse Resp BP BP Pulse Ox 07/12/24 16:26 36.5 C 72 16 159/75 H 97 07/12/24 15:56 36.4 C L 73 16 154/70 H 98 07/12/24 15:25 36.7 C 71 12 146/69 H 91 L 07/12/24 15:10 36.7 C 74 16 149/82 H 98 07/12/24 15:05 74 16 163/70 H 96 07/12/24 14:55 73 16 157/78 H 95 07/12/24 14:45 73 14 165/83 H 97 07/12/24 14:35 73 14 166/73 H 96 07/12/24 14:30 74 16 178/75 H 96 07/12/24 14:25 78 16 181/92 H 96 07/12/24 14:20 36.2 C L 77 16 180/84 H 100 07/12/24 12:42 36.7 C 67 20 114/64 95 O2 Flow Rate 07/12/24 16:26 3.5 07/12/24 15:56 3.5 07/12/24 15:25 3.5 07/12/24 15:10 07/12/24 15:05 07/12/24 14:55 07/12/24 14:45 07/12/24 14:35 07/12/24 14:30 07/12/24 14:25 07/12/24 14:20 07/12/24 12:42 Intake & Output: Intake & Output 07/09/24 07/10/24 07/11/24 07/12/24 23:59 23:59 23:59 23:59 Intake Total 600 Balance 600 - Objective General Appearance: positive: Other (She is somewhat groggy and appears to be uncomfortable.) Eyes Bilateral: positive: Other (She has ecchymosis and swelling under her left eye and mildly under the right eye) ENT: positive: Other (She has packing in place and some swelling of the nose) Respiratory: positive: Chest non-tender, No respiratory distress, Breath sounds nml Cardiovascular: positive: Regular rate & rhythm, No murmur, No gallop. negative: Friction rub Skin: positive: Color nml, No rash, Warm Extremities: positive: Non-tender, Full ROM Neurologic/Psychiatric: positive: Oriented x3, CN's nml (2-12) - Lab Results Fish Bones: 07/12/24 05:00 07/12/24 05:00 Other Labs: Lab Results x24hrs 07/12/24 07/12/24 07/12/24 Range/Units 16:29 14:20 11:16 WBC (4.8-10.8) x10^3/uL RBC (4.20-5.40) 10^6/uL Hgb (12.0-16.0) g/dL Hct (37.0-47.0) % MCV (81.0-99.0) fL MCH (27.0-31.0) pg MCHC (32.0-36.0) g/dL RDW (12.0-15.0) % Plt Count (130-450) 10^3/uL MPV (7.9-10.8) fL Neut # (Auto) (1.5-6.6) 10^3/uL Lymph # (Auto) (1.5-3.5) 10^3/uL [place] # (Auto) (0.0-1.0) 10^3/uL Eos # (Auto) (0.0-0.7) 10^3/uL Baso # (Auto) (0.0-0.1) 10^3/uL Absolute Nucleated RBC x10^3/uL Nucleated RBC % /100WBC PT (9.9-12.6) secs INR (0.8-1.2) Sodium (135-145) mmol/L Potassium (3.5-4.5) mmol/L Chloride (101-111) mmol/L Carbon Dioxide (21-32) mmol/L Anion Gap (6-13) BUN (6-20) mg/dL Creatinine (0.6-1.3) mg/dL Estimated GFR (MDRD) (>89) Glucose (74-104) mg/dL POC Whole Bld Glucose 191 H 115 H 132 H (70 - 100) mg/dL Calcium (8.5-10.3) mg/dL Phosphorus (2.5-5.0) mg/dL Magnesium (1.7-2.3) mg/dL Total Bilirubin (0.2-1.0) mg/dL AST (10-42) IU/L ALT (10-60) IU/L Alkaline Phosphatase (42-121) IU/L Total Protein (6.4-8.9) g/dL Albumin (3.2-5.5) g/dL Globulin (2.1-4.2) g/dL Albumin/Globulin Ratio (1.0-2.2) Lipase (11-82) U/L 07/12/24 07/12/24 07/12/24 Range/Units 06:17 05:00 05:00 WBC 8.4 (4.8-10.8) x10^3/uL RBC 3.77 L (4.20-5.40) 10^6/uL Hgb 11.1 L (12.0-16.0) g/dL Hct 35.7 L (37.0-47.0) % MCV 94.7 (81.0-99.0) fL MCH 29.4 (27.0-31.0) pg MCHC 31.1 L (32.0-36.0) g/dL RDW 13.2 (12.0-15.0) % Plt Count 223 (130-450) 10^3/uL MPV 9.2 (7.9-10.8) fL Neut # (Auto) 5.4 (1.5-6.6) 10^3/uL Lymph # (Auto) 1.8 (1.5-3.5) 10^3/uL [place] # (Auto) 0.9 (0.0-1.0) 10^3/uL Eos # (Auto) 0.2 (0.0-0.7) 10^3/uL Baso # (Auto) 0.0 (0.0-0.1) 10^3/uL Absolute Nucleated RBC 0.00 x10^3/uL Nucleated RBC % 0.0 /100WBC PT (9.9-12.6) secs INR (0.8-1.2) Sodium 138 (135-145) mmol/L Potassium 4.3 (3.5-4.5) mmol/L Chloride 106 (101-111) mmol/L Carbon Dioxide 23 (21-32) mmol/L Anion Gap 9.0 (6-13) BUN 24 H (6-20) mg/dL Creatinine 1.0 (0.6-1.3) mg/dL Estimated GFR (MDRD) 53 L (>89) Glucose 147 H (74-104) mg/dL POC Whole Bld Glucose 161 H (70 - 100) mg/dL Calcium 9.1 (8.5-10.3) mg/dL Phosphorus 4.4 (2.5-5.0) mg/dL Magnesium 1.8 (1.7-2.3) mg/dL Total Bilirubin (0.2-1.0) mg/dL AST (10-42) IU/L ALT (10-60) IU/L Alkaline Phosphatase (42-121) IU/L Total Protein (6.4-8.9) g/dL Albumin 3.9 (3.2-5.5) g/dL Globulin (2.1-4.2) g/dL Albumin/Globulin Ratio (1.0-2.2) Lipase (11-82) U/L 07/11/24 07/11/24 07/11/24 Range/Units 23:50 20:43 18:02 WBC (4.8-10.8) x10^3/uL RBC (4.20-5.40) 10^6/uL Hgb (12.0-16.0) g/dL Hct (37.0-47.0) % MCV (81.0-99.0) fL MCH (27.0-31.0) pg MCHC (32.0-36.0) g/dL RDW (12.0-15.0) % Plt Count (130-450) 10^3/uL MPV (7.9-10.8) fL Neut # (Auto) (1.5-6.6) 10^3/uL Lymph # (Auto) (1.5-3.5) 10^3/uL [place] # (Auto) (0.0-1.0) 10^3/uL Eos # (Auto) (0.0-0.7) 10^3/uL Baso # (Auto) (0.0-0.1) 10^3/uL Absolute Nucleated RBC x10^3/uL Nucleated RBC % /100WBC PT (9.9-12.6) secs INR (0.8-1.2) Sodium 137 (135-145) mmol/L Potassium 4.3 (3.5-4.5) mmol/L Chloride 105 (101-111) mmol/L Carbon Dioxide 23 (21-32) mmol/L Anion Gap 9.0 (6-13) BUN 25 H (6-20) mg/dL Creatinine 1.1 (0.6-1.3) mg/dL Estimated GFR (MDRD) 48 L (>89) Glucose 81 (74-104) mg/dL POC Whole Bld Glucose 200 H 154 H (70 - 100) mg/dL Calcium 9.7 (8.5-10.3) mg/dL Phosphorus (2.5-5.0) mg/dL Magnesium (1.7-2.3) mg/dL Total Bilirubin 0.3 (0.2-1.0) mg/dL AST 16 (10-42) IU/L ALT 13 (10-60) IU/L Alkaline Phosphatase 66 (42-121) IU/L Total Protein 6.5 (6.4-8.9) g/dL Albumin 4.3 (3.2-5.5) g/dL Globulin 2.2 (2.1-4.2) g/dL Albumin/Globulin Ratio 2.0 (1.0-2.2) Lipase 46 (11-82) U/L 07/11/24 07/11/24 Range/Units 18:02 18:02 WBC 11.2 H (4.8-10.8) x10^3/uL RBC 3.90 L (4.20-5.40) 10^6/uL Hgb 11.8 L (12.0-16.0) g/dL Hct 36.3 L (37.0-47.0) % MCV 93.1 (81.0-99.0) fL MCH 30.3 (27.0-31.0) pg MCHC 32.5 (32.0-36.0) g/dL RDW 13.2 (12.0-15.0) % Plt Count 232 (130-450) 10^3/uL MPV 8.7 (7.9-10.8) fL Neut # (Auto) 7.9 H (1.5-6.6) 10^3/uL Lymph # (Auto) 2.0 (1.5-3.5) 10^3/uL [place] # (Auto) 1.0 (0.0-1.0) 10^3/uL Eos # (Auto) 0.2 (0.0-0.7) 10^3/uL Baso # (Auto) 0.1 (0.0-0.1) 10^3/uL Absolute Nucleated RBC 0.00 x10^3/uL Nucleated RBC % 0.0 /100WBC PT 11.8 (9.9-12.6) secs INR 1.1 (0.8-1.2) Sodium (135-145) mmol/L Potassium (3.5-4.5) mmol/L Chloride (101-111) mmol/L Carbon Dioxide (21-32) mmol/L Anion Gap (6-13) BUN (6-20) mg/dL Creatinine (0.6-1.3) mg/dL Estimated GFR (MDRD) (>89) Glucose (74-104) mg/dL POC Whole Bld Glucose (70 - 100) mg/dL Calcium (8.5-10.3) mg/dL Phosphorus (2.5-5.0) mg/dL Magnesium (1.7-2.3) mg/dL Total Bilirubin (0.2-1.0) mg/dL AST (10-42) IU/L ALT (10-60) IU/L Alkaline Phosphatase (42-121) IU/L Total Protein (6.4-8.9) g/dL Albumin (3.2-5.5) g/dL Globulin (2.1-4.2) g/dL Albumin/Globulin Ratio (1.0-2.2) Lipase (11-82) U/L Sepsis Event Note (H) - Evaluation Current Stage of Sepsis: Ruled out Assessment/Plan - Problem List (1) Nasal bone fracture Impression: Status post surgical repair today. This is postoperative day 0. The patient will stay on scheduled Tylenol. She has oxycodone and IV Dilaudid available for pain. We will see how much pain medication she requires overnight and likely will send her home tomorrow. She has been initiated on clindamycin 300 mg 4 times daily at the recommendation of Dr. Viramontes Qualifiers: Encounter type: initial encounter Fracture type: closed Qualified Code(s): S02.2XXA - Fracture of nasal bones, initial encounter for closed fracture (2) Maxillary sinus fracture Impression: As above Qualifiers: Encounter type: initial encounter Fracture type: closed Qualified Code(s): S02.401A - Maxillary fracture, unspecified side, initial encounter for closed fracture (3) Medial orbital wall fracture Impression: As above Qualifiers: Encounter type: initial encounter Fracture type: closed Laterality: left Qualified Code(s): S02.832A - Fracture of medial orbital wall, left side, initial encounter for closed fracture (4) Hypertension Impression: Continue current regimen (5) Hyperlipidemia Impression: Continue statin medication (6) Type 2 diabetes mellitus Impression: She has low-dose sliding scale available if needed (7) Mild major depression Impression: Continue home regimen (8) GERD (gastroesophageal reflux disease) Impression: Continue PPI (9) Gout Impression: Continue allopurinol Disposition: The patient status will be changed from observation to a full admission. The patient is still quite groggy from the anesthesia and feels quite weak. Also having quite a bit of pain and discomfort already. Would like to make sure her pain is appropriately managed and anesthesia has worn off prior to sending her home. She will likely go home in the morning. Time spent: 35 minutes
[2024-07-12] MEDS: CLINDAMYCIN 150 MG CAPSULE PO SCH (20:50)
[2024-07-12] MEDS: INSULIN LISPRO 300 UNIT/3 ML PEN SUBQ SCH (21:59)
[2024-07-13 05:29] LABS: BASOPHILS % (AUTO) 0.2 %; HCT - HEMATOCRIT 35.4 % (37.0-47.0); HGB - HEMOGLOBIN 11.5 g/dL (12.0-16.0); LYMPHOCYTES # (AUTO) 0.6 10^3/uL (1.5-3.5); LYMPHOCYTES % (AUTO) 4.4 %; MEAN CORPUSCULAR HEMOGLOBIN 30.3 pg (27.0-31.0); MEAN CORPUSCULAR HGB CONC 32.5 g/dL (32.0-36.0); MEAN CORPUSCULAR VOLUME 93.4 fL (81.0-99.0); MONOCYTES # (AUTO) 0.6 10^3/uL (0.0-1.0); MONOCYTES % (AUTO) 4.7 %; NEUTROPHILS # (AUTO) 11.8 10^3/uL (1.5-6.6); NEUTROPHILS % (AUTO) 90.2 %; PLT - PLATELET COUNT 237 10^3/uL (130-450); RED BLOOD COUNT 3.79 10^6/uL (4.20-5.40); RED CELL DISTRIBUTION WIDTH 13.1 % (12.0-15.0); WHITE BLOOD COUNT 13.1 x10^3/uL (4.8-10.8)
[2024-07-13 05:47] LABS: ALBUMIN 4.1 g/dL (3.2-5.5); CREATININE 1.2 mg/dL (0.6-1.3); MAGNESIUM 1.9 mg/dL (1.7-2.3); PHOSPHORUS 3.6 mg/dL (2.5-5.0); POTASSIUM 4.9 mmol/L (3.5-4.5)
[2024-07-13 07:39] VITALS: O2SAT 97
--- NOTE | 2024-07-13 08:30 | Discharge Plan ---
Discharge Plan Problem Reviewed?: Yes Disposition: Home, Self Care Condition: Stable Prescriptions: Clindamycin [Cleocin] 300 mg PO QID 7 Days #56 cap Docusate Sodium 100Mg Capsule [Colace 100Mg Capsule] 100 mg PO BID #60 polyethylene glycoL 3350 [Miralax] 17 gm PO DAILY #30 packet oxyCODONE [Roxicodone] 5 mg PO Q4H PRN #30 tab PRN Reason: Pain 5-7 Diet: Diabetic Activity Restrictions: slowly increase actiivit Shower Restrictions: Yes (Keep face out of running water until packing is removed ) Weight Bearing: Full Weight Health Concerns: You were admitted to the hospital after having a fall at home. You fractured your nose as well as your left orbit. He went to the operating room yesterday. You have packing in place that needs to stay in place until you follow-up with Dr. Viramontes. If you have any trouble with the packing or excessive bleeding you need to call his office immediately. You need to call Dr. Viramontes office and set up an appointment. I have written a prescription for clindamycin which needs to be taken as long as you have nasal packing in place. I have written for a 1 week supply. When you follow-up with Dr. Viramontes he can write for additional antibiotics if necessary. I have written a prescription for oxycodone. I would like for you to take scheduled Tylenol for the next week as well. While you are on oxycodone I have written for MiraLAX and Colace which is a stool softener to help with your bowel movements. If you have any questions you can contact Dr. Viramontes office at [phone]. Assessment: 1. Nasal fracture; maxillary sinus fracture; medial orbital wall fracture Status postsurgical repair on 07/12/[address] Viramontes she should follow- up. At his office on 07/17/2024. The nasal packing should remain in place until it falls out on its own usually in 1 to 3 weeks. She should be on clindamycin during the time that she has the packing in place. I have written for a [address] Viramontes can continue this as long as he feels it is necessary at her follow-up appointment. 2. Hypertension She should resume her home regimen of valsartan and nebivolol. 3. Hyperlipidemia She should resume her home dose of Crestor 10 mg daily 4. Type 2 diabetes with hyperglycemia The patient is hyperglycemic this morning likely reactive to her surgery yesterd ay. She received sliding scale coverage during this hospitalization. She should resume her home dose of glimepiride 5. Mild major depression Stable. She should continue her home dose of escitalopram 6. GERD She should resume omeprazole 20 mg twice daily at home 7. Gout Quiescent. Continue home dose of allopurinol No Smoking: If you smoke, Please STOP! Call for help. Follow-up with: Andrew Viarmontes DDS [Provider Admit Priv/Credential] - Sylvia Flores PA [Primary Care Provider] -
--- NOTE | 2024-07-13 08:48 | DISCHARGE SUMMARY ---
"Discharge Summary Admit Date: 07/11/24 Discharge Date: 07/13/24 Discharging Provider: Cindy Moreau PA-C Primary Care Provider: Brian Flores MD; Andrew Viramontes MD surgeon Code Status: Attempt Resuscitation Condition at Discharge: Stable Discharge Disposition: 01 Home, Self Care - DIAGNOSES Discharge Diagnoses with Status of Each Condition: 1. Nasal fracture; maxillary sinus fracture; medial orbital wall fracture Status postsurgical repair on 07/12/[address] Viramontes she should follow- up. At his office on 07/17/2024. The nasal packing should remain in place until it falls out on its own usually in 1 to 3 weeks. She should be on clindamycin during the time that she has the packing in place. I have written for a [address] Viramontes can continue this as long as he feels it is necessary at her follow-up appointment. 2. Hypertension She should resume her home regimen of valsartan and nebivolol. 3. Hyperlipidemia She should resume her home dose of Crestor 10 mg daily 4. Type 2 diabetes with hyperglycemia The patient is hyperglycemic this morning likely reactive to her surgery yesterday. She received sliding scale coverage during this hospitalization. She should resume her home dose of glimepiride 5. Mild major depression Stable. She should continue her home dose of escitalopram 6. GERD She should resume omeprazole 20 mg twice daily at home 7. Gout Quiescent. Continue home dose of allopurinol - HPI History of Present Illness: The patient is an 79-year-old female with past medical history significant for hypertension, hyperlipidemia and well-controlled type 2 diabetes. 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 She hit her face and her head but did not lose consciousness. In the emergency room she had a CT scan of the head which revealed a markedly comminuted nasal bone fracture and nasal septal fracture but otherwise no evidence of a bleed. Facial bone CT revealed a severely comminuted nasal bone fracture, nasal septal fracture medial wall right maxillary sinus fracture and comminuted nondisplaced fracture of the left lateral orbital wall. Maxillofacial surgery was consulted who plans to take the patient to the operating room tomorrow. Sound physicians were consulted for medical management and pain control. When I went to see the patient she is resting in the bed. She is received 1000 mg of Tylenol and seems to be comfortable at the time of my visit. She denies fever or chills. No chest pain or heart palpitations. No nausea vomiting or diarrhea. No urinary complaints. The patient elects to be a full code. A POLST was filled out. Her daughter Valeri Pappas [phone] is her surrogate decision maker and healthcare power of divorce attorney - CONSULTS | PROCEDURES Consultations: Dr Viramontes Maxillofacial surgery Procedures: Closed reduction of the bilateral nasal bones and septum with internal and external nasal splint Simple closure of 2cm laceration of the left naris and upper lip. - HOSPITAL COURSE Hospital Course: The patient was admitted to the hospital. She was seen by Dr. Viramontes who requested hospitalist admission to manage her medical problems. She went to the operating room on 07/12/2024 and underwent a closed reduction of the bilateral nasal bones and septum and with internal and external nasal splint. She also had simple closure of a 2 cm laceration of the left nares and upper lip. She tolerated the procedure well. She was kept in the hospital for an additional night to let the effects of anesthesia wear off and to make sure her pain was adequately controlled. This morning the patient was seen and is doing well. Postop instructions were given and she has to follow-up at Dr. Viramontes office on 07/17/2024. A prescription for clindamycin was written. I wrote her a 1 week supply. He indicated that the packing should fall out on its own in 1 to 3 weeks. She should be on clindamycin while the packing is in place. If she requires further clindamycin Dr. Viramontes can refill it at her follow-up appointment. Oxycodone has been written for pain and she is advised to take scheduled Tylenol for the next several days. At this point maximum hospital benefit has been reached. The patient will be discharged today in stable condition. - ALLERGIES Allergies/Adverse Reactions: Allergies Allergy/AdvReac Type Severity Reaction Status Date / Time colchicine Allergy Severe Diarrhea Verified 07/11/24 12:52 Penicillins Allergy Intermediate Rash/Swelli Verified 07/11/24 12:52 ng sulfamethoxazole Allergy Intermediate Rash Verified 07/11/24 12:52 [From Bactrim] trimethoprim [From Bactrim] Allergy Intermediate Rash Verified 07/11/24 12:52 Gadolinium-Containing AdvReac Severe Nausea/Vomi Verified 07/11/24 12:52 Contrast Medi ting - MEDICATIONS Home Medications: Ambulatory Orders Medication Instructions Recorded Confirmed buPROPion [Wellbutrin Xl] 150 mg PO DAILY 03/01/19 07/11/24 Buspirone HCl 10 mg PO DAILY 07/11/24 07/11/24 Glimepiride [Amaryl] 3 mg PO 0800 07/11/24 07/12/24 Omeprazole 20 mg PO BID 07/11/24 07/11/24 Rosuvastatin Calcium 10 mg PO HS 07/11/24 07/11/24 Valsartan [Diovan] 40 mg PO DAILY 07/11/24 07/11/24 allopurinoL [Zyloprim] 100 mg PO DAILY 07/11/24 07/11/24 Nebivolol HCl 5 mg PO DAILY 07/12/24 07/12/24 Acetaminophen [Tylenol] 1,000 mg PO Q6H tab 07/13/24 Clindamycin [Cleocin] 300 mg PO QID 7 Days #56 cap 07/13/24 Docusate Sodium 100Mg Capsule 100 mg PO BID #60 07/13/24 [Colace 100Mg Capsule] Escitalopram [Lexapro] 20 mg PO DAILY tab 07/13/24 oxyCODONE [Roxicodone] 5 mg PO Q4H PRN #30 tab 07/13/24 polyethylene glycoL 3350 [Miralax] 17 gm PO DAILY #30 packet 07/13/24 - PHYSICAL EXAM AT DISCHARGE General Appearance: positive: No acute distress Eyes Bilateral: positive: Other (Ecchymosis and swelling under the left eye. Mild ecchymosis under the right eye. She has packing in place to the bilateral naris with some evidence of mild bleeding.) Neck: positive: Nml inspection Respiratory: positive: Chest non-tender, No respiratory distress, Breath sounds nml Cardiovascular: positive: Regular rate & rhythm, No murmur, No gallop. negative: Friction rub Abdomen: positive: Non-tender Skin: positive: Color nml, No rash, Warm, Dry Extremities: positive: Non-tender, Full ROM Neurologic/Psychiatric: positive: Oriented x3, CN's nml (2-12) - LABS Result Diagrams: 07/13/24 04:50 07/13/24 04:50 - SEPSIS Current Stage of Sepsis: Ruled out - FOLLOW UP Follow Up: Ana M - TIME SPENT Time Spent in Discharge (Minutes): 45"
[2024-07-13] MEDS: polyethylene glycoL 3350 17 GM PACKET PO SCH (08:54)
[2024-07-13 11:27] VITALS: BP 165/86
== END 2024-07-13 13:45 | disposition home or self-care (01) ==
LOC: EDUNIT# → ED 12:42 → SDS 17:45 → MS2 17:57
PROVIDERS: ADMIT Physician Assistant; ATTEND Dentist Oral and Maxillofacial Surgery
DX: S02.2XXA Fracture of nasal bones, initial encounter for closed fracture (principal); S02.40CA Maxillary fracture, right side, initial encounter for closed fracture; S02.842A Fracture of lateral orbital wall, left side, initial encounter for closed fracture; S01.511A Laceration without foreign body of lip, initial encounter; S01.21XA Laceration without foreign body of nose, initial encounter; W01.0XXA Fall on same level from slipping, tripping and stumbling without subsequent striking against object, initial encounter; Y93.01 Activity, walking, marching and hiking; Y92.007 Garden or yard of unspecified non-institutional (private) residence as the place of occurrence of the external cause; I10 Essential (primary) hypertension; G47.30 Sleep apnea, unspecified; E11.9 Type 2 diabetes mellitus without complications; E11.65 Type 2 diabetes mellitus with hyperglycemia; F32.9 Major depressive disorder, single episode, unspecified; K21.9 Gastro-esophageal reflux disease without esophagitis; M10.9 Gout, unspecified; Z79.899 Other long term (current) drug therapy
CPT/HCPCS: 12011; 21320; 21337; 36415; 70450; 70486; 80053; 80069; 82607; 83690; 83735; 85025; 85610; 93005; 96374; 96375; 99284; 99285; A9270; G0378; J1170; J3490; J7120

== ENCOUNTER 2024-10-17 19:57 | Inpatient (IN) ==
[2024-10-17 20:22] LABS: BASOPHILS # (AUTO) 0.1 10^3/uL (0.0-0.1); BASOPHILS % (AUTO) 0.5 %; EOSINOPHILS # (AUTO) 0.3 10^3/uL (0.0-0.7); EOSINOPHILS % (AUTO) 2.7 %; HCT - HEMATOCRIT 39.2 % (37.0-47.0); HGB - HEMOGLOBIN 12.3 g/dL (12.0-16.0); LYMPHOCYTES # (AUTO) 2.3 10^3/uL (1.5-3.5); LYMPHOCYTES % (AUTO) 23.8 %; MEAN CORPUSCULAR HEMOGLOBIN 29.5 pg (27.0-31.0); MEAN CORPUSCULAR HGB CONC 31.4 g/dL (32.0-36.0); MEAN PLATELET VOLUME 8.6 fL (7.9-10.8); MONOCYTES # (AUTO) 0.7 10^3/uL (0.0-1.0); MONOCYTES % (AUTO) 7.3 %; NEUTROPHILS # (AUTO) 6.2 10^3/uL (1.5-6.6); PLT - PLATELET COUNT 285 10^3/uL (130-450); RED BLOOD COUNT 4.17 10^6/uL (4.20-5.40); RED CELL DISTRIBUTION WIDTH 13.3 % (12.0-15.0); WHITE BLOOD COUNT 9.6 x10^3/uL (4.8-10.8)
--- NOTE | 2024-10-17 20:26 | CT Report ---
PROCEDURE: CT Head WO INDICATIONS: R side weakness, neglect, aphasia TECHNIQUE: Noncontrast 4.5 mm thick angled axial sections acquired from the foramen magnum to the vertex. For r adiation dose reduction, the following was used: automated exposure control, adjustment of mA and/or kV according to patient size. COMPARISON: Head CT 07/11/2024. FINDINGS: Image quality: Excellent. CSF spaces: Basal cisterns are patent. No extra-axial fluid collections. Ventricles are normal in size and shape. Brain: No midline shift. No intracranial masses or hemorrhage. No area of hypodensity in a vascula r distribution to suggest acute infarction. There is periventricular hypodensity consistent with seasoning mixer camila microvascular ischemic disease. Age-related parenchymal loss. Skull and face: Calvarium and visualized facial bones are intact, without suspicious lesions. Sinuses: Clinical thickening at the right maxillary sinus. Mastoids are clear. IMPRESSION: No acute intracranial hemorrhage. Reviewed by: Marcos Singh MD on 10/17/2024 8:25 PM PST Approved by: Marcos Singh MD on 10/17/2024 8:25 PM PST Station ID: [id number]
[2024-10-17] MEDS: iohexoL-300 100 ML VIAL IVP ONE (20:33)
[2024-10-17 20:37] LABS: ALBUMIN 4.5 g/dL (3.2-5.5); ALBUMIN/GLOBULIN RATIO 1.7 (1.0-2.2); BILIRUBIN,TOTAL 0.4 mg/dL (0.2-1.0); CREATININE 1.3 mg/dL (0.6-1.3); POTASSIUM 4.9 mmol/L (3.5-4.5); TOTAL PROTEIN 7.2 g/dL (6.4-8.9)
--- NOTE | 2024-10-17 20:50 | CT Report ---
PROCEDURE: CT Angio Head/Neck INDICATIONS: R side weakness, neglect, aphasia TECHNIQUE: After the administration of intravenous contrast, 1 mm thick sections acquired from the aortic arch t hrough the [place] of [place]. 3-dimensional etmufef-ixvvcqjmz-hqsahhvjeb (MIP) and/or volume renderin g reformats were acquired of the central intracranial vasculature and neck separately. For radiation dose reduction, the following was used: automated exposure control, adjustment of mA and/or kV acco rding to patient size. CONTRAST: Omni 300 80ml COMPARISON: None. FINDINGS: Image quality: Diagnostic. HEAD CT: CSF Spaces: Basal cisterns are patent. No extra-axial fluid collections. Ventricles are normal in size and shape. Brain: No significant abnormality is seen for scanning technique. Skull and face: Calvarium and visualized facial bones appear intact, without suspicious lesions. Sinuses: Visualized sinuses and mastoids are clear. HEAD CT ANGIOGRAPHY: Anterior circulation: Intracranial internal carotid arteries are normal in size and flow. The flow within the paired anterior cerebral arteries is normal and symmetric. Flow in the right A1 CORINNE segmen ts is absent, (5/48), likely congenital. The flow within the middle cerebral arteries is normal and s ymmetric. The anterior communicating artery is seen. No aneurysms are seen. Posterior circulation: Visualized portions of the vertebral arteries demonstrate normal caliber, and join to form a normal appearing basilar artery. Flow within the posterior cerebral arteries is norm al and symmetric. No aneurysms are seen. NECK CT ANGIOGRAPHY: Carotid system: The great vessels demonstrate a conventional anatomy as they arise from the aortic a rch. Extensive plaque. The origins of the common carotid arteries appear patent. The common carotid arteries demonstrate normal caliber and courses. There is 50-69% stenosis of the right proximal ICA, (11/48). At least 50-69% stenosis of the left proximal ICA, (11/82). Extensive plaque. Posterior circulation: The origins of the vertebral arteries both appear widely patent. The more razo perior extracranial portions of both vertebral arteries also demonstrate normal courses and calibers. They join to form a normal appearing basilar artery. Soft tissues: Visualized neck soft tissues demonstrate no suspicious abnormalities. Bones: No suspicious bony lesions. Severe degenerative changes in the cervical spine at C5-C6 and C 6-C7. Visualized cervical spine appears normally aligned. IMPRESSION: 1. No large vessel occlusion. 2. 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 3. Congenitally absent right A1 CORINNE segment. The estimate of stenosis included in the report of the imaging study was calculated using the NASCET method Results were communicated to Dr. Linda Small at 10/17/2024 8:45 PM PST. Reviewed by: Marcos Singh MD on 10/17/2024 8:49 PM PST Approved by: Marcos Singh MD on 10/17/2024 8:49 PM PST Station ID: [id number]
[2024-10-17] MEDS: ASPIRIN 325 MG TABLET PO STA (21:34)
--- NOTE | 2024-10-17 22:18 | ED Physician Documentation ---
History of Present Illness Stated complaint Stated Complaint: POSS STROKE Chief complaint Chief Complaint: Neuro History obtained from History obtained from: Family and EMS Additonal information Additional information: The patient is brought to the emergency department by EMS for chief complaint of possible stroke. The patient is not able to offer much information she is aphasic, but according to the daughter, the symptoms seem to start sometime today. The patient lives at home with her , who has dementia, and he cannot answer clearly With regard to what time the symptoms started. When asked if the patient was normal earlier in the day, the patient's states "I think she made breakfast". He is not able to comment specifically on whether the patient was normal earlier in the day and the patient is confused by the question. The daughter states that she thinks the symptoms possibly started this evening, sometime between 1818, because the patient's called the daughter at 1900 and told her that the patient was "not acting right". Medics report that they noticed that the patient seemed to have some weakness or altered use of the right side, especially her arm. She has right side dominant generally. No history of CVA previously. Patient is supposed to be on an aspirin a day but the daughter thinks she is not taking it. The patient has not been ill recently. She is not regularly on any sedating or psychotropic medications according to the daughter, though the patient does once in a while taken oxycodone for her sciatica. She has only had meloxicam today, though. The patient cannot really offer any further information. Meds/Allgy Home Medications Ambulatory Orders Medication Instructions Recorded Confirmed bupropion HCl 150 mg 24 hr tablet, 150 mg PO DAILY 03/01/19 07/11/24 extended release Omeprazole 20 mg PO BID 07/11/24 07/11/24 Rosuvastatin Calcium 10 mg PO HS 07/11/24 07/11/24 allopurinol 100 mg tablet 100 mg PO DAILY 07/11/24 07/11/24 buspirone 10 mg tablet 10 mg PO DAILY 07/11/24 07/11/24 glimepiride 2 mg tablet 3 mg PO 0800 07/11/24 07/12/24 valsartan 40 mg tablet (Diovan) 40 mg PO DAILY 07/11/24 07/11/24 nebivolol 5 mg tablet 5 mg PO DAILY 07/12/24 07/12/24 acetaminophen 500 mg tablet 1,000 mg (2 x 500 mg) PO Q6H 07/13/24 clindamycin HCl 150 mg capsule 300 mg (2 x 150 mg) PO QID 7 days 07/13/24 #56 caps docusate sodium 100 mg capsule 100 mg PO BID ##60 07/13/24 (Stool Softener) escitalopram oxalate 10 mg tablet 20 mg (2 x 10 mg) PO DAILY 07/13/24 oxycodone 5 mg tablet 5 mg PO Q4H PRN Pain 5-7 #30 tabs 07/13/24 polyethylene glycol 3350 17 gram 17 g PO DAILY #30 packets 07/13/24 oral powder packet Allergies Allergies Allergy/AdvReac Type Severity Reaction Status Date / Time colchicine Allergy Severe Diarrhea Verified 07/11/24 12:52 Penicillins Allergy Intermediate Rash/Swelli Verified 07/11/24 12:52 ng sulfamethoxazole (From Allergy Intermediate Rash Verified 07/11/24 12:52 Bactrim) trimethoprim (From Bactrim) Allergy Intermediate Rash Verified 07/11/24 12:52 Gadolinium-Containing AdvReac Severe Nausea/Vomi Verified 07/11/24 12:52 Contrast Medi ting PFSH Social History Social History Smoking Status: Former smoker If you are a former smoker, when did you quit? (Date/Year): 2004 Number of Years Smoked: 45 How many cigarettes a day do you smoke? (20 cigarettes=1 Pk): 10 Second hand tobacco smoke exposure: No Do you dip or chew tobacco?: No Do you vape?: No Patient requests smoking cessation consult: No Initiate information on smoking cessation: No Relationship: Child Level: Independent Do you feel safe in your home environment?: Yes Suffered physical, verbal, emotional, or financial abuse?: No History of Abuse: No Substance Use: denies use POLST Patient has POLST: No Exam Constitutional normal general appearance and no apparent distress HENMT normocephalic, head/scalp atraumatic, external nose normal and oral mucous membranes normal Eyes EOMs intact bilaterally Neck/C-Spine visual inspection normal and supple Respiratory breath sounds equal bilaterally, normal respiratory effort and clear to aus cultation bilaterally Cardiovascular normal heart rate noted, regular rhythm noted and no edema Gastrointestinal abdomen normal to inspection, abdomen soft to palpation, nontender to palpation and nondistended Genitourinary no CVA tenderness Extremities normal to inspection Neurology Alert. Attempts to answer questions but speaks in a word solid, and seems somewhat frustrated by the fact that she cannot answer the question properly. Moving right arm but largely ignores the right side, even with very directed attempts to get her to recognize the side. Cannot comply with majority of NIH stroke scale. No facial droop. No trouble with articulation. Psychiatry Alert, confused. Skin skin color normal Results Vitals Vitals: Vital Signs - 24 hr 10/17/24 19:57 10/17/24 20:06 10/17/24 20:27 Temperature Temperature Source Pulse Rate 94 H Respiratory Rate 18 Blood Pressure 215/97 H 207/104 H O2 Saturation 97 96 O2 Source Room air Pain Intensity 1 10/17/24 20:31 10/17/24 21:00 10/17/24 21:30 Temperature 36.0 C L Temperature Source Tympanic Pulse Rate 83 85 81 Respiratory Rate 18 18 20 Blood Pressure 215/97 H 191/121 H 170/86 H O2 Saturation 97 97 97 O2 Source Room air Room air Room air Pain Intensity 0 6 Oxygen O2 Source Room air EKG (time done) 2037: EKG releavant findings:: EKG personally interpreted by author of this note. Relevant findings are: Rate: Rate (enter#) Rhythm: NSR [place]: Normal Intervals: Normal RI QRS: QRS normal Ischemia: Normal ST segments Compare to prior EKG: Old EKG unavailable Computer interpretation: Agree with computer Labs Labs: Laboratory Tests 10/17/24 20:16 WBC 9.6 RBC 4.17 L Hgb 12.3 Hct 39.2 MCV 94.0 MCH 29.5 MCHC 31.4 L RDW 13.3 Plt Count 285 MPV 8.6 Neut # (Auto) 6.2 Lymph # (Auto) 2.3 [place] # (Auto) 0.7 Eos # (Auto) 0.3 Baso # (Auto) 0.1 Absolute Nucleated RBC 0.00 Nucleated RBC % 0.0 Sodium 136 Potassium 4.9 H Chloride 103 Carbon Dioxide 22 Anion Gap 11.0 BUN 23 H Creatinine 1.3 Estimated GFR (MDRD) 39 L Glucose 254 H Calcium 10.0 Total Bilirubin 0.4 AST 25 ALT 21 Alkaline Phosphatase 78 Total Protein 7.2 Albumin 4.5 Globulin 2.7 Albumin/Globulin Ratio 1.7 Lipase 45 PD Medical Decision Making ED course Complexity details: reviewed old records, reviewed results, re-evaluated patient, considered differential and d/w patient ED course: The patient was evaluated immediately upon arriving in the emergency department and I felt that she should for now be treated as a code stroke. She was sent directly to the CT scanner for noncontrast CT and CT angiogram of the head and neck. The noncontrast CT was negative and the head and neck angio showed significant bilateral ICA stenosis at 50 to 69% per radiologist, but no obvious occlusion otherwise. The patient was given an aspirin. I spoke with Dr. Cruz, the on-call telestroke neurologist and he stated that since there was no clear start time, he did not feel that it would be appropriate to give the patient thrombolytics. He recommended observation and MRI tomorrow. The family did report the patient seemed to be doing better and nursing staff stated that she was now following commands with the right side. Discharge Plan Discharge Patient Disposition: 66 [facility] DC/Xfer Condition: Serious Clinical Impression: Acute CVA (cerebrovascular accident) Interventions: ED Admission Assessment Last Done: 10/17/24 23:26
--- NOTE | 2024-10-17 23:06 | HISTORY & PHYSICAL EXAMINATION ---
Chief Complaint Chief Complaint Chief Complaint: confusion and speech difficulty History of Present Illness Admitted From Admitted From:: Home History Obtained From Records Reviewed: Yes History obtained from: ED physician, Patient, Family at bedside Exam Limitations: Patient's speech, telemedicine History of Present Illness HPI Comment/Other: Mrs. Dash is a 79yo F with a history of hypertension and diabetes. She presented to the ED with acute confusion that started the day on presentation. The exact time was uncertain, as her could not specify when he noticed the changes. The patient's daughter saw her around 7pm and noticed that she was confused and speaking jibberish. In the ED, evaluation noted that patient had expressive aphasia, it appeared as if she understood question,but would have difficulty finding words or would respond with a word salad. She also exhibited right sided neglect. She had Full range of motion of her upper and lower extremities and did not have any visual field deficits or gaze palsy upon arrival to the Ed. Workup including CT and CTA were negative for acute abnormalities. Teleneurology did not feel she was a tPA candidate due to the onset of time being unknown. After my discussion with the ED physician and the patient, I will admit the patient for further evaluation of her persistent symptoms and complete her evaluation for an acute stroke. Patient was seen at bedside, I discussed plan of care and goal of admission with patient adn her daughter at bedside. They agreed to being admitted for further stroke evaluation. I completed this visit utilizing tele-health tools including phone and live video. Informed consent was obtained from the patient and family to proceed with this telemedicine visit. Review of Systems Status of ROS: 10 or more systems reviewed and unremarkable except as noted in history and below [facility] Social History Social History Smoking Status: Former smoker If you are a former smoker, when did you quit? (Date/Year): 2004 Number of Years Smoked: 45 How many cigarettes a day do you smoke? (20 cigarettes=1 Pk): 10 Do you dip or chew tobacco?: No Do you vape?: No Patient requests smoking cessation consult: No Initiate information on smoking cessation: No Relationship: Child Level: Independent Do you feel safe in your home environment?: Yes Suffered physical, verbal, emotional, or financial abuse?: No History of Abuse: No POLST Patient has POLST: No Meds/Allgy Home Medications Ambulatory Orders Medication Instructions Recorded Confirmed bupropion HCl 150 mg 24 hr tablet, 150 mg PO DAILY 03/01/19 07/11/24 extended release Omeprazole 20 mg PO BID 07/11/24 07/11/24 Rosuvastatin Calcium 10 mg PO HS 07/11/24 07/11/24 allopurinol 100 mg tablet 100 mg PO DAILY 07/11/24 07/11/24 buspirone 10 mg tablet 10 mg PO DAILY 07/11/24 07/11/24 glimepiride 2 mg tablet 3 mg PO 0800 07/11/24 07/12/24 valsartan 40 mg tablet (Diovan) 40 mg PO DAILY 07/11/24 07/11/24 nebivolol 5 mg tablet 5 mg PO DAILY 07/12/24 07/12/24 acetaminophen 500 mg tablet 1,000 mg (2 x 500 mg) PO Q6H 07/13/24 clindamycin HCl 150 mg capsule 300 mg (2 x 150 mg) PO QID 7 days 07/13/24 #56 caps docusate sodium 100 mg capsule 100 mg PO BID ##60 07/13/24 (Stool Softener) escitalopram oxalate 10 mg tablet 20 mg (2 x 10 mg) PO DAILY 07/13/24 oxycodone 5 mg tablet 5 mg PO Q4H PRN Pain 5-7 #30 tabs 07/13/24 polyethylene glycol 3350 17 gram 17 g PO DAILY #30 packets 07/13/24 oral powder packet Allergies Allergies Allergy/AdvReac Type Severity Reaction Status Date / Time colchicine Allergy Severe Diarrhea Verified 07/11/24 12:52 Penicillins Allergy Intermediate Rash/Swelli Verified 07/11/24 12:52 ng sulfamethoxazole (From Allergy Intermediate Rash Verified 07/11/24 12:52 Bactrim) trimethoprim (From Bactrim) Allergy Intermediate Rash Verified 07/11/24 12:52 Gadolinium-Containing AdvReac Severe Nausea/Vomi Verified 07/11/24 12:52 Contrast Medi ting Exam Exam Examination, as recorded, was obtained from patient reported information or obtained from peripheral observation. Constitutional normal general appearance and distress noted (mild) Eyes PERRL and EOMs intact bilaterally Chest inspection of chest normal Respiratory breath sounds equal bilaterally and normal respiratory effort Cardiovascular normal heart rate noted and regular rhythm noted Extremities normal to inspection, no tenderness and full ROM Neurology cob sawyer II-XII intact, no focal motor deficit noted, speech abnormality noted (expressive aphasia) and GCS 15 Psychiatry cooperative Conclusion/Plan Problem List (1) Acute CVA (cerebrovascular accident): Plan: patient with aphasia, right neglect finding consistent with acute stroke, I have reviewed the CT and CTA, no evidence of hemorrhage or large vessel occlusions. I will proceed with stroke workup as follows: - I will order MRI to evaluate for ischemic stroke -To evaluate ventricular function and rule out PFO, I have ordered an ECHO with bubble study -I have initiated close monitoring with scheduled neurocheck q4h, continuos telemetry -I have continued aspirin 325mg and added lipitor 40mg daily to optimize medical management of stroke risks -I have ordered anticoagulation with heparin 5000 units, BID to mitigate increased risk of clots, will monitor drug level, trend pt, ptt and adjust regimen as needed to avoid toxicity -To optimize patient's recovery, I have ordered PT,ST and OT consultations (2) Type 2 diabetes mellitus: Plan: I have reviewed patient's home regimen. I will continue management as follows: -I have reviewed home regime: will resume glimeperide 2mg daily -obtain a HbA1c to evaluate blood glucose trend over the past 3 months -continue to monitor BG levels with accuchecks and cover with sliding scale subQ insulin -I have initiated the hypoglycemia protocol for close monitoring of clinical response to treatment and to adjust regimen to avoid toxicity or adverse effects. (3) Hypertension: Plan: I have reviewed patient's home regimen and will continue management as follows: -i will resume valsartan 40mg daily and nebivolol5 mg -I will monitor vitals with serial BP checks for clinical response to treatment (4) Hyperlipidemia: Plan: I reviewed home medication, she is on rouvastatin 10mg, this has been chagne to atorvastatin 40mg in the setting of an acute stroke -I will obtain lipid panel in the morning -statin regimen may be adjusted prior to discharge. Lab Results Lab results reviewed: Yes 10/17/24 20:16 10/17/24 20:16 Diagnostic Imaging Results Diagnostic Imaging Results: positive Final report reviewed EKG Results EKG Interpreted Independently: Yes Core Measures Anticipated LOS I expect patient to be DC'd or transferred within 96 hours.: Yes DVT/VTE - Prophylaxis VTE/DVT Device ordered at admit?: Yes VTE/DVT Prophylaxis med ordered at admit?: Yes Stroke - Rehab Assessment Rehab services assessment to be ordered?: Yes AMI - Statin at Admit Aspirin Prescribed on Admit: Yes Telemedicine Consult Details Provider Location & Consult Time Telemedicine consultation conducted via videoconferencing?: Yes
[2024-10-17] MEDS ORDERED: LIDOCAINE PATCH 4% TOP PRN (23:31)
[2024-10-18] MEDS: ACETAMINOPHEN 325 MG TABLET PO PRN (00:23)
[2024-10-18] MEDS: INSULIN LISPRO 300 UNIT/3 ML PEN SUBQ SCH ×2 (00:35→12:45)
[2024-10-18] MEDS: SODIUM CHLORIDE FLUSH 0.9% 10 ML SYRINGE IVP SCH (00:36)
[2024-10-18 01:02] LABS: CALCIUM 10.2 mg/dL (8.5-10.3); CREATININE 1.2 mg/dL (0.6-1.3); POTASSIUM 4.9 mmol/L (3.5-4.5)
[2024-10-18] MEDS: hydrALAZINE INJ 20 MG/ML VIAL IVP PRN ×2 (01:12→06:12)
[2024-10-18] MEDS: LABETALOL 20 MG/4 ML SYRINGE IVP PRN (04:01)
[2024-10-18] MEDS: ONDANSETRON 4 MG/2 ML VIAL IVP PRN (05:03)
[2024-10-18 06:18] LABS: BASOPHILS # (AUTO) 0.1 10^3/uL (0.0-0.1); BASOPHILS % (AUTO) 0.3 %; EOSINOPHILS # (AUTO) 0.1 10^3/uL (0.0-0.7); EOSINOPHILS % (AUTO) 0.4 %; HCT - HEMATOCRIT 41.1 % (37.0-47.0); HGB - HEMOGLOBIN 13.3 g/dL (12.0-16.0); LYMPHOCYTES # (AUTO) 1.1 10^3/uL (1.5-3.5); LYMPHOCYTES % (AUTO) 6.1 %; MEAN CORPUSCULAR HEMOGLOBIN 29.6 pg (27.0-31.0); MEAN CORPUSCULAR HGB CONC 32.4 g/dL (32.0-36.0); MEAN CORPUSCULAR VOLUME 91.3 fL (81.0-99.0); MEAN PLATELET VOLUME 8.6 fL (7.9-10.8); MONOCYTES # (AUTO) 0.7 10^3/uL (0.0-1.0); MONOCYTES % (AUTO) 3.9 %; NEUTROPHILS # (AUTO) 15.7 10^3/uL (1.5-6.6); NEUTROPHILS % (AUTO) 88.6 %; PLT - PLATELET COUNT 303 10^3/uL (130-450); RED CELL DISTRIBUTION WIDTH 13.2 % (12.0-15.0); WHITE BLOOD COUNT 17.8 x10^3/uL (4.8-10.8)
[2024-10-18 06:27] LABS: PARTIAL THROMBOPLASTIN TIME 24.8 secs (24.9-33.3)
[2024-10-18 06:30] LABS: ALBUMIN 4.9 g/dL (3.2-5.5); ALBUMIN/GLOBULIN RATIO 1.7 (1.0-2.2); BILIRUBIN,TOTAL 0.5 mg/dL (0.2-1.0); CALCIUM 10.2 mg/dL (8.5-10.3); CREATININE 1.2 mg/dL (0.6-1.3); TOTAL PROTEIN 7.8 g/dL (6.4-8.9)
[2024-10-18 06:31] LABS: INR 1.1 (0.8-1.2); PT - PROTHROMBIN TIME 12.1 secs (9.9-12.6)
[2024-10-18 07:10] LABS: CHOL/HDL RATIO 3.7 (<4.4); CHOLESTEROL 174 mg/dL; HDL CHOLESTEROL 47 mg/dL; LDL CHOLESTEROL,CALCULATED 77 mg/dL; LDL/HDL RATIO 1.6 (<4.4); TRIGLYCERIDES 249 mg/dL; VLDL CHOLESTEROL 50 mg/dL
[2024-10-18] MEDS: HEPARIN 5,000 UNIT/ML VIAL SUBQ SCH (08:40)
[2024-10-18] MEDS: ASPIRIN EC 325 MG TABLET PO SCH (08:40)
[2024-10-18] MEDS: ESCITALOPRAM 10 MG TABLET PO SCH (08:40)
[2024-10-18] MEDS: buPROPion XL 150 MG TABLET PO SCH (08:41)
[2024-10-18] MEDS: LOSARTAN 50 MG TABLET PO SCH (08:41)
[2024-10-18] MEDS: PANTOPRAZOLE 40 MG TABLET PO SCH (08:41)
[2024-10-18] MEDS: ATORVASTATIN 40 MG TABLET PO SCH (08:41)
[2024-10-18] MEDS: GLIMEPIRIDE 2 MG TABLET PO SCH (08:48)
--- NOTE | 2024-10-18 08:51 | PROVIDER PROGRESS NOTE ---
Subjective Prog Note Date Prog Note Date: 10/18/24 Prog Note Time: 08:51 Subjective Pt reports feeling: No change Subjective: She has been uncomfortable and fidgety all night. daughter at bedside. Patient is not able to form appropriate responses. Daughter at bedside, concerned that she may be having some back pain as this is a problem that she has. Current Medications Current Medications Current Medications: Current Medications Generic Name Dose Route Start Last Admin Trade Name Freq PRN Reason Stop Dose Admin Acetaminophen 650 mg 10/17/24 23:31 10/18/24 08:40 Acetaminophen 325 Mg Tablet PO 650 mg Q4HR PRN Administration Pain 1 to 4, or Fever Aspirin 325 mg 10/18/24 09:00 10/18/24 08:40 Aspirin Ec 325 Mg Tablet PO 325 mg DAILY KAREN Administration Atorvastatin Calcium 40 mg 10/18/24 09:00 10/18/24 08:41 Atorvastatin 40 Mg Tablet PO 40 mg DAILY KAREN Administration Bupropion HCl 150 mg 10/18/24 09:00 10/18/24 08:41 Bupropion Xl 150 Mg Tablet PO 150 mg DAILY KAREN Administration Escitalopram Oxalate 20 mg 10/18/24 09:00 10/18/24 08:40 Escitalopram 10 Mg Tablet PO 20 mg DAILY KAREN Administration Glimepiride 3 mg 10/18/24 08:00 10/18/24 08:48 Glimepiride 2 Mg Tablet PO 3 mg 0800 KAREN Administration Heparin Sodium (Porcine) 5,000 unit 10/18/24 09:00 10/18/24 08:40 Heparin 5,000 Unit/Ml Vial SUBQ 5,000 unit BID KAREN Administration Hydralazine HCl 5 mg 10/18/24 05:44 10/18/24 06:12 Hydralazine Inj 20 Mg/Ml Vial IVP 5 mg Q4H PRN Administration Hypertension Insulin Human Lispro 0 unit 10/17/24 23:31 10/18/24 06:19 Insulin Lispro 300 Unit/3 Ml Pen SUBQ Not Given A[facility]S [facility] Protocol Insulin Human Lispro 1 - 5 unit 10/18/24 12:00 Insulin Lispro 300 Unit/3 Ml Pen SUBQ 0800,1200,1700,2100 [facility] Protocol Labetalol HCl 10 mg 10/18/24 03:39 10/18/24 04:01 Labetalol 20 Mg/4 Ml Syringe IVP 10 mg Q6H PRN Administration hypertension Lidocaine 1 patch 10/17/24 23:31 Lidocaine Patch 4% TOP DAILY PRN Neck pain Lorazepam 0.5 mg 10/18/24 07:57 Lorazepam 2 Mg/Ml Vial IVP Q2H PRN Anxiety Losartan Potassium 25 mg 10/18/24 09:00 10/18/24 08:41 Losartan 50 Mg Tablet PO 25 mg DAILY KAREN Administration Ondansetron HCl 4 mg 10/17/24 23:31 10/18/24 05:03 Ondansetron 4 Mg/2 Ml Vial IVP 4 mg Q6HR PRN Administration Nausea / Vomiting Pantoprazole Sodium 40 mg 10/18/24 09:00 10/18/24 08:41 Pantoprazole 40 Mg Tablet PO 40 mg BID KAREN Administration Nebivolol 5 Mg 1 each 10/18/24 09:00 10/18/24 08:41 Tablet PO Not Given DAILY KAREN Sodium Chloride 10 ml 10/17/24 23:31 Sodium Chloride Flush 0.9% 10 Ml Syringe IVP PRN PRN NEEDED PER PROVIDER ORDERS Sodium Chloride 10 ml 10/18/24 01:00 10/18/24 08:41 Sodium Chloride Flush 0.9% 10 Ml Syringe IVP 10 ml 0100,0900,1700 KAREN Administration Objective Vital Signs/Intake & Output Reviewed Vital Signs: Yes Vital Signs: Vital Signs x48h Temp Pulse Pulse Pulse Resp BP BP 10/18/24 07:30 36.9 C 103 H 24 192/115 H 10/18/24 06:47 180/110 H 10/18/24 06:12 204/109 H 10/18/24 05:33 98 H 204/109 H 10/18/24 05:08 95 H 211/111 H 10/18/24 05:00 36.4 C L 89 14 209/105 H 10/18/24 04:35 90 181/97 H 10/18/24 04:16 90 199/111 H 10/18/24 04:11 90 192/100 H 10/18/24 04:06 89 172/97 H 10/18/24 04:01 102 H 202/105 H 10/18/24 03:33 202/112 H 10/18/24 03:29 102 H 202/112 H 10/18/24 01:46 200/123 H 10/18/24 01:27 91 H 209/105 H 10/18/24 01:22 211/104 H 10/18/24 01:20 87 193/103 H 10/18/24 01:12 87 191/108 H 10/18/24 01:12 191/108 H 10/18/24 01:00 36.4 C L 87 16 209/105 H Pulse Ox 10/18/24 07:30 97 10/18/24 06:47 10/18/24 06:12 10/18/24 05:33 10/18/24 05:08 10/18/24 05:00 97 10/18/24 04:35 10/18/24 04:16 10/18/24 04:11 10/18/24 04:06 10/18/24 04:01 10/18/24 03:33 10/18/24 03:29 10/18/24 01:46 10/18/24 01:27 10/18/24 01:22 10/18/24 01:20 10/18/24 01:12 10/18/24 01:12 10/18/24 01:00 96 Intake & Output: Intake & Output 10/15/24 10/16/24 10/17/24 10/18/24 23:59 23:59 23:59 23:59 Output Total 2250 / 2250 Balance -2250 / -2250 Weight (kg) 82.917 kg 74.5 kg Objective General Appearance: positive No acute distress Eyes Bilateral: positive PERRL, Conjunctivae nml and Other (unable to follow commands, so cannot test EOMs) ENT: positive ENT inspection nml and Dry mucous membranes Neck: positive Nml inspection Respiratory: positive No respiratory distress and Breath sounds nml Cardiovascular: positive Regular rate & rhythm Abdomen: positive Non-tender and No distention Back: positive Nml inspection Skin: positive Color nml and No rash Extremities: positive Non-tender and No pedal edema Neurologic/Psychiatric: positive Other (eyes open spontaneously speech is confused (inappropriate words) follows commands) Lab Results 10/18/24 06:07 10/18/24 06:07 Other Labs: Lab Results x24hrs 10/18/24 10/18/24 10/18/24 Range/Units 07:16 06:07 00:40 WBC 17.8 H (4.8-10.8) x10^3/uL RBC 4.50 (4.20-5.40) 10^6/uL Hgb 13.3 (12.0-16.0) g/dL Hct 41.1 (37.0-47.0) % MCV 91.3 (81.0-99.0) fL MCH 29.6 (27.0-31.0) pg MCHC 32.4 (32.0-36.0) g/dL RDW 13.2 (12.0-15.0) % Plt Count 303 (130-450) 10^3/uL MPV 8.6 (7.9-10.8) fL Neut # (Auto) 15.7 H (1.5-6.6) 10^3/uL Lymph # (Auto) 1.1 L (1.5-3.5) 10^3/uL Ector # (Auto) 0.7 (0.0-1.0) 10^3/uL Eos # (Auto) 0.1 (0.0-0.7) 10^3/uL Baso # (Auto) 0.1 (0.0-0.1) 10^3/uL Absolute Nucleated RBC 0.00 x10^3/uL Nucleated RBC % 0.0 /100WBC PT 12.1 (9.9-12.6) secs INR 1.1 (0.8-1.2) APTT 24.8 L (24.9-33.3) secs Sodium 133 L 138 (135-145) mmol/L Potassium 5.0 H 4.9 H (3.5-4.5) mmol/L Chloride 100 L 104 (101-111) mmol/L Carbon Dioxide 21 22 (21-32) mmol/L Anion Gap 12.0 12.0 (6-13) BUN 20 23 H (6-20) mg/dL Creatinine 1.2 1.2 (0.6-1.3) mg/dL Estimated GFR (MDRD) 43 L 43 L (>89) Glucose 250 H 170 H (74-104) mg/dL POC Whole Bld Glucose 243 (70-100) mg/dL Calcium 10.2 10.2 (8.5-10.3) mg/dL Total Bilirubin 0.5 (0.2-1.0) mg/dL AST 27 (10-42) IU/L ALT 23 (10-60) IU/L Alkaline Phosphatase 82 (42-121) IU/L Total Protein 7.8 (6.4-8.9) g/dL Albumin 4.9 (3.2-5.5) g/dL Globulin 2.9 (2.1-4.2) g/dL Albumin/Globulin Ratio 1.7 (1.0-2.2) Triglycerides 249 mg/dL Cholesterol 174 ( - 200) mg/dL LDL Cholesterol, Calc 77 ( - 129) mg/dL VLDL Cholesterol 50 mg/dL HDL Cholesterol 47 L (60 - ) mg/dL LDL/HDL Ratio 1.6 (<4.4) Cholesterol/HDL Ratio 3.7 (<4.4) Lipase (11-82) U/L 10/17/24 Range/Units 20:16 WBC 9.6 (4.8-10.8) x10^3/uL RBC 4.17 L (4.20-5.40) 10^6/uL Hgb 12.3 (12.0-16.0) g/dL Hct 39.2 (37.0-47.0) % MCV 94.0 (81.0-99.0) fL MCH 29.5 (27.0-31.0) pg MCHC 31.4 L (32.0-36.0) g/dL RDW 13.3 (12.0-15.0) % Plt Count 285 (130-450) 10^3/uL MPV 8.6 (7.9-10.8) fL Neut # (Auto) 6.2 (1.5-6.6) 10^3/uL Lymph # (Auto) 2.3 (1.5-3.5) 10^3/uL Ector # (Auto) 0.7 (0.0-1.0) 10^3/uL Eos # (Auto) 0.3 (0.0-0.7) 10^3/uL Baso # (Auto) 0.1 (0.0-0.1) 10^3/uL Absolute Nucleated RBC 0.00 x10^3/uL Nucleated RBC % 0.0 /100WBC PT (9.9-12.6) secs INR (0.8-1.2) APTT (24.9-33.3) secs Sodium 136 (135-145) mmol/L Potassium 4.9 H (3.5-4.5) mmol/L Chloride 103 (101-111) mmol/L Carbon Dioxide 22 (21-32) mmol/L Anion Gap 11.0 (6-13) BUN 23 H (6-20) mg/dL Creatinine 1.3 (0.6-1.3) mg/dL Estimated GFR (MDRD) 39 L (>89) Glucose 254 H (74-104) mg/dL POC Whole Bld Glucose (70-100) mg/dL Calcium 10.0 (8.5-10.3) mg/dL Total Bilirubin 0.4 (0.2-1.0) mg/dL AST 25 (10-42) IU/L ALT 21 (10-60) IU/L Alkaline Phosphatase 78 (42-121) IU/L Total Protein 7.2 (6.4-8.9) g/dL Albumin 4.5 (3.2-5.5) g/dL Globulin 2.7 (2.1-4.2) g/dL Albumin/Globulin Ratio 1.7 (1.0-2.2) Triglycerides mg/dL Cholesterol ( - 200) mg/dL LDL Cholesterol, Calc ( - 129) mg/dL VLDL Cholesterol mg/dL HDL Cholesterol (60 - ) mg/dL LDL/HDL Ratio (<4.4) Cholesterol/HDL Ratio (<4.4) Lipase 45 (11-82) U/L Assessment/Plan Problem List (1) Acute CVA (cerebrovascular accident): Impression: Secondary stroke prevention with aspirin and statin. with right sided neglect and aphasia. She is swallowing well this morning with breakfast before ativan administration. no need for swallow evaluation. She will need speech therapy in the non acute setting due to her aphasia. MRI is pending. CT head did not show any bleed. Echocardiogram is pending. PT and OT evaluations are pending. Permissive HTN. up to SBP 200. her blood pressures have been elevated. She is getting hydralazine q4h PRN Selected Entries 10/18/24 04:16 10/18/24 04:35 10/18/24 05:00 Blood Pressure Blood Pressure [Left Brachial artery] 199/111 H 181/97 H 209/105 H Blood Pressure [Supine] 10/18/24 05:08 10/18/24 05:33 10/18/24 06:12 Blood Pressure 204/109 H Blood Pressure [Left Brachial artery] 211/111 H 204/109 H Blood Pressure [Supine] 10/18/24 06:47 10/18/24 07:30 10/18/24 10:42 Blood Pressure 180/110 H Blood Pressure [Left Brachial artery] 192/115 H Blood Pressure [Supine] 170/115 H 10/18/24 12:43 Blood Pressure Blood Pressure [Left Brachial artery] 127/101 H Blood Pressure [Supine] Will allow 48 hours of permissive hypertension, then resume home meds. The MRI images are of poor quality, but there is not evidence of CVA seen. Therefore, I am adding on to my workup. I wll check TSH,(2.87- this is normal) I am giving her Vit B supplementation. I am checking an ammonia level (also returned as normal-21.9) Additionally I am ordering an MRI of the brain with and without gadolinium. Although the image quality is poor we do not see a CVA on the non contrast scan this AM. This makes me concerned that she has a tumor. She definitely has focal neurologic signs on exam which are concerning. Her mental status has declined over the course of the day, however, this could be due to Ativan administration which was necessary to obtain MRI. Discussed CODE STATUS with her family again today. Her daughter who is a retired RN and her surrogate decision maker (April Pappas) affirms that this patient would like to be full code at this time. (2) Neutrophilic leukocytosis: Impression: This is new today. Will add on a urinalysis. she does not have hypoxia. She does not have any adventitous breath sounds on lung exam. On further discussion with the family at the bedside they tell me that she has a history of idiopathic pulmonary fibrosis. She is not on any medications for this. 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 her oxygen saturations are stable. Her abdomen is soft. I will check CBC in the AM. I will continue to observe for fevers or other signs/symptoms of infection. 2 Laboratory Tests 02/27/20 06:40 Ur Leukocyte Esterase TRACE H Urine WBC 11-25 H Urine Bacteria Many H I will treat her for urinary tract infection with Levaquin (PCN allergy). I do not however believe this is the cause of her encephalopathy. (3) Carotid stenosis: Impression: CTA of the head and neck reveals bilateral ICA stenosis of 50-69%. This indicates the need for vascular surgery consultation in consideration of carotid enarterectomy/stenting for secondary stroke prevention. This can be completed in the outpatient environment. I will start her on Plavix. (4) Type 2 diabetes mellitus: Impression: Hemoglobin A1C is pending. 02/18/24 reading was 5.4%. Will followup on this result. (5) Hypertension: Impression: permission HTN after CVA. home meds are nevibolol, valsartan. Will resume these after 48 hours. (6) Hyperlipidemia: Impression: On Crestor at home, has been started on atorvastatin here. (7) Hyperkalemia: Impression: 5.0 today. no evidence of worsening renal function. Lokelma ordered. I have ordered BMP for the AM. I am started NS at 100cc per hour this evening for dilutional effects as she is not taking in fluids orally. She is on telemetry to monitor for arrhythmias. (8) Hyponatremia: Impression: Na 133 today. Will observe at this time. treating with NS for fluid replacement as she ate well at breakfast but refused lunch due to somnolence. I have spent 65minutes in the care of this patient today. This includes time [id number], review and ordering of diagnostic imaging and laboratory studies and consultation with other providers.. Monitoring the patient's signs symptoms, evaluation of medication effectiveness and patient's response to treatment.
[2024-10-18] MEDS ORDERED: VALSARTAN 40 MG PO SCH (09:00)
[2024-10-18] MEDS: LORazepam 2 MG/ML VIAL IVP ONE (10:30)
[2024-10-18] MEDS: LORazepam 2 MG/ML VIAL IVP PRN (10:49)
--- NOTE | 2024-10-18 10:57 | PHARMACY PROGRESS NOTE ---
Best Possible Medication History Admit Date and Time: 10/17/24 2226 Home Medications Medication Instructions Recorded Confirmed Type bupropion HCl 150 mg 24 hr tablet, 150 mg PO DAILY 03/01/19 10/18/24 History extended release allopurinol 100 mg tablet 100 mg PO DAILY 07/11/24 10/18/24 History buspirone 10 mg tablet 10 mg PO DAILY 07/11/24 10/18/24 History glimepiride 2 mg tablet 3 mg PO 0800 07/11/24 10/18/24 History valsartan 40 mg tablet (Diovan) 40 mg PO DAILY 07/11/24 10/18/24 History nebivolol 5 mg tablet 5 mg PO DAILY 07/12/24 10/18/24 History acetaminophen 650 mg 650 mg PO Q6HR PRN pain 10/18/24 10/18/24 History tablet,extended release (8 Hour Pain Reliever) escitalopram oxalate 20 mg tablet 20 mg PO DAILY 10/18/24 10/18/24 History omeprazole 20 mg capsule,delayed 20 mg PO BID 10/18/24 10/18/24 History release rosuvastatin 10 mg tablet 10 mg PO QPM 10/18/24 10/18/24 History Processed by: Pharmacy Medications reviewed in ED?: Yes Medication History completed: Yes Patient Interview: Completed Secondary Source(s): Pharmacy records and Insurance records [facility] [place] Statement: As the person ultimately responsible for medication therapy, providers are able to order a medication from an existing home medication list in [facility] via the "Reconcile Routine" prior to Confirmation of that medication by family support coordinator. Such practice is discouraged except when the physician, in their clinical judgment, deems that a medical need exists for a medication without regard to previous use.
--- NOTE | 2024-10-18 12:18 | OT Plan of Care ---
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 Workup including CT and CTA were negative for acute abnormalities. TPA not administered as pt deemed out of therapeutic window. MRI ordered. Permissive hypertension at this time RN cleared pt for therapy. Met supine in bed, awake and restless. Eyes open, L head turn and gaze preference. Vitals stable on RA BP within permissive range 170/115. Pt with noticeable head discomfort with supine position. Unable to assess A&O 2/2 cognition however responsive to name with minimal attempts at speech production in small phrases such as Im sorry, I cant. Unable to follow Y/N responses to personally relevant questions. No command following at this time. Visually attending to therapist, however unable to track past midline to R despite max cues. Responds to auditory stimuli on R however cannot locate source of sound. Severe deficits noted in receptive/comprehensive aphasia as well as attention impairing full functional assessment. Noted involuntary R UE/LE movement some tone with PROM. + withdrawal to noxious stim R UE/LE. Pt able to perform automatic movement with L UE including taking cup, shaking therapist hand, moving to side of bed with heavy multisensory cues. Performed supine to sit EOB MAX A CGA sitting, restless and confused with ability to communicate need to lay down. Pt responsive to simple and automatic commands for mobility. Currently MAX -DEP for all ADLs and mobility. Overall presenting with R inattention, decreased motor planning, and decreased cognition impairing functional participation in ADL/IADLs. Pt will benefit from cont OT services and assessment during acute stay. Rec d/c to acute inpatient rehab 2/2 extensive rehab needs within OT/PT/GEAR SETTER disciplines. PATIENT/FAMILY GOALS Patient/Family Goals: Return to baseline function -Activities of Daily Living Improve Upper Extremity Dressing to:: Minimal Assist Improve Lower Extremity Dressing to:: Minimal Assist Improve Grooming/Hygiene to:: Minimal Assist Improve Bathing to:: Minimal Assist Improve Toileting to:: Minimal Assist - Upper Extremity Function Goals Other Upper Extremity Function Goal:: Pt will follow 1 step simple commands with B UE 50% of the time OT Inpatient Plan PLAN Treatment Frequency: 1x/day Duration: Until goals are met -Discharge Recommendations Discharge Location: in rehab Transport Needs at Discharge: Anne Comment: Inpt rehab vs SNF pending progressing of cognition/physical deficits
--- NOTE | 2024-10-18 13:11 | MRI Report ---
PROCEDURE: MRI Brain WO INDICATIONS: stroke follow up TECHNIQUE: Noncontrast axial T1 spin echo, axial T2 fast spin echo, sagittal and axial FLAIR, coronal T2 fast sp in echo, axial gradient echo, axial diffusion and ADC through the brain. COMPARISON: 10/17/[address] FINDINGS: Image quality: Degraded by motion artifact. CSF Spaces: Basal cisterns are patent. No extra-axial fluid collections. Ventricles are normal in size and shape. Brain: No intracranial masses or hemorrhage. Leon/white matter interface is normal. There is mild diffuse cerebral volume loss. Mild degree of patchy high FLAIR signal within the periventricular and subcortical white matter. Brainstem appears normal. Diffusion-weighted images demonstrate no acute i schemic insult. No chronic ischemic insults. Normal intravascular flow voids are present. Skull and face: Calvarium has normal marrow signal. Orbits appear normal. Sinuses: Mild bilateral ethmoid and maxillary sinus because of thickening. Mastoids are clear. IMPRESSION: 1. Limited examination demonstrate no acute process. No recent infarct. 2. Volume loss and small vessel ischemic disease. 3. Mild sinus disease. Reviewed by: Tamy Briscoe MD on 10/18/2024 1:10 PM PST Approved by: Tamy Briscoe MD on 10/18/2024 1:10 PM PST Station ID: [id number]
--- NOTE | 2024-10-18 13:17 | PT Plan of Care ---
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 Workup including CT and CTA were negative for acute abnormalities. TPA not administered as pt deemed out of therapeutic window. MRI pending. PMH includes HTN and DM. Permissive hypertension at this time. Upon PT eval, pt supine in bed, awake and restless. Dtr in room throughout session. Pt presents with eyes open, L head turn and gaze preference with apparent R sided neglect. Unable to assess orientation d/t cognition however responsive to name with minimal attempts at speech production in small phrases such as Im sorry, I cant. Unable to follow Y/N responses to personally relevant questions. Visually attending to therapist when on L side of pt, however unable to track past midline to R despite max cues. Responds to auditory stimuli on R however cannot locate source of sound. Severe expressive and receptive aphasia noted and difficulty attending to tasks limiting full mobility assessment. Transfers to EOB with CGA and max multimodal cueing. Fair plus seated trunk control requiring occasional cueing to maintain upright. Unable to follow cues at this time and pt becomes notably uncomfortable in seated and attempts to return to supine. Pt assisted with CGA to supine, maxAx2 for repositioning in bed. Full RUE neglect with pt unaware of lying on top of arm. Pt positioned for comfort with maxA. Pt presents currently maxA to dep for all ADLs and mobility. Overall presenting with R inattention, decreased motor planning, and decreased cognition impairing functional participation in ADL/IADLs. Pt will benefit from skilled PT services and assessment during acute stay. When medically clear, PT red dc to inpatient rehab as pt has need for extensive rehab needs within OT/PT/[facility] disciplines. GOALS Improve supine to sit to:: Moderate Assist Improve sit to stand to:: Moderate Assist Improve sit to supine to:: Moderate Assist Other gait goal:: gait goal TBD after further assessment Improve Sitting Balance to:: Good PLAN Frequency: 1-2x/day Duration: Until goals are met DISCHARGE RECOMMENDATIONS Discharge Location: [facility] Support/Services Needed: With assist Other Discharge Equipment: TBD Transport Needs at Discharge: B.L.S Other: BLS d/t cognitive status and unable to sit unsupported, unable to stand
[2024-10-18 16:47] LABS: THYROID STIMULATING HORMONE 2.87 uIU/mL (0.34-5.60)
[2024-10-18] MEDS ORDERED: ONDANSETRON INJ 4 MG in SODIUM CHLORIDE 0.9% 50 ML IVP SCH (17:00)
[2024-10-18] MEDS ORDERED: HYDROmorphone 0.5 MG/0.5 ML SYRINGE IVP PRN (17:20)
[2024-10-18] MEDS: SODIUM CHLORIDE 0.9% 1,000 ML IV SCH (17:40)
[2024-10-18] MEDS: KETOROLAC 15 MG/ML VIAL IVP PRN (17:51)
[2024-10-18] MEDS: levoFLOXacin 750 MG/150 ML 750 MG/150 ML BAG IV SCH (18:02)
[2024-10-18] MEDS: SODIUM ZIRCONIUM CYCLOSILICATE 5 GM PACKET PO ONE (18:33)
[2024-10-18 22:49] LABS: BILIRUBIN,URINE NEGATIVE (NEGATIVE); GLUCOSE, URINE (UA) NEGATIVE (NEGATIVE); KETONES,URINE (UA) NEGATIVE (NEGATIVE); LEUKOCYTE ESTERASE, URINE NEGATIVE (NEGATIVE); NITRITE,URINE NEGATIVE (NEGATIVE); OCCULT BLOOD,URINE TRACE-INTA (NEGATIVE); PROTEIN,URINE 100 mg/dL (NEGATIVE); UROBILINOGEN,URINE 0.2 (NORMAL) E.U./dL (NORMAL)
[2024-10-18 22:51] LABS: CLARITY,URINE CLEAR (CLEAR)
[2024-10-18 22:55] LABS: BACTERIA,URINE Rare /HPF (None Seen); RBC,URINE 0-5 /HPF (0-5); SQUAMOUS EPITHELIAL CELL,UR NONE SEEN (<= Few); WBC,URINE 0-3 /HPF (0-5)
[2024-10-19 05:48] LABS: BASOPHILS % (AUTO) 0.2 %; EOSINOPHILS % (AUTO) 0.1 %; LYMPHOCYTES # (AUTO) 2.1 10^3/uL (1.5-3.5); LYMPHOCYTES % (AUTO) 15.1 %; MEAN CORPUSCULAR HEMOGLOBIN 29.8 pg (27.0-31.0); MEAN CORPUSCULAR HGB CONC 32.4 g/dL (32.0-36.0); MEAN CORPUSCULAR VOLUME 91.8 fL (81.0-99.0); MEAN PLATELET VOLUME 8.5 fL (7.9-10.8); MONOCYTES # (AUTO) 1.4 10^3/uL (0.0-1.0); MONOCYTES % (AUTO) 10.1 %; NEUTROPHILS # (AUTO) 10.2 10^3/uL (1.5-6.6); PLT - PLATELET COUNT 287 10^3/uL (130-450); RED BLOOD COUNT 4.03 10^6/uL (4.20-5.40); RED CELL DISTRIBUTION WIDTH 13.7 % (12.0-15.0); WHITE BLOOD COUNT 13.8 x10^3/uL (4.8-10.8)
[2024-10-19 06:00] LABS: CALCIUM 9.7 mg/dL (8.5-10.3); CREATININE 1.3 mg/dL (0.6-1.3)
[2024-10-19] MEDS: CLOPIDOGREL 75 MG TABLET PO SCH (10:21)
[2024-10-19] MEDS: THIAMINE 100 MG TABLET PO SCH (10:21)
[2024-10-19] MEDS: diphenhydrAMINE INJ 50 MG/ML VIAL IVP SCH (12:17)
[2024-10-19] MEDS: methylPREDNISolone SUCCINATE 40 MG/ML VIAL IVP SCH (12:17)
[2024-10-19] MEDS: MULTIVITAMIN 10 ML, THIAMINE INJ 100 MG, FOLIC ACID INJ 1 MG in SODIUM CHLORIDE 0.9% 1,... IV SCH (12:18)
[2024-10-19 13:12] LABS: ESTIMATED AVERAGE GLUCOSE 169 mg/dL (70-100); HEMOGLOBIN A1c% 7.5 % (4.27-6.07)
--- NOTE | 2024-10-19 14:35 | PROVIDER PROGRESS NOTE ---
Subjective Prog Note Date Prog Note Date: 10/19/24 Prog Note Time: 07:00 Subjective Pt reports feeling: Improved Subjective: Shalonda has slept well overnight. Her granddaughter has been at the bedside all night. This morning she wakes up and she is alert and somewhat oriented to the situation. She does get confused periodically and forgets. She was able to eat breakfast and swallow well. She then was able to get up and walk with physical therapy which was a great improvement. 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 After working with PT, while eating lunch she did have some difficulty swallowing and ultimately required thickened liquids. I think this was somewhat due to fatigue. MRI quality yesterday afternoon was very poor therefore acute CVA was not noted. We are awaiting MRI with contrast to rule out tumor although this will likely also identify any present CVA. Her family has multiple concerns about her care going forward. As well as the care of her . CODE STATUS discussed today with her daughter Anny Pappas, who affirms full code full treatment. There have been multiple questions about gadolinium allergy. Reportedly Shalonda had 1 episode of vomiting after administration of gadolinium in the past. She previously, however had tolerated gadolinium administration. It is the thought of her family that her vomiting was not due to gadolinium allergy Current Medications Current Medications Current Medications: Current Medications Generic Name Dose Route Start Last Admin Trade Name Freq PRN Reason Stop Dose Admin Acetaminophen 650 mg 10/17/24 23:31 10/18/24 08:40 Acetaminophen 325 Mg Tablet PO 650 mg Q4HR PRN Administration Pain 1 to 4, or Fever Aspirin 325 mg 10/18/24 09:00 10/19/24 10:21 Aspirin Ec 325 Mg Tablet PO 325 mg DAILY KAREN Administration Atorvastatin Calcium 40 mg 10/18/24 09:00 10/19/24 10:21 Atorvastatin 40 Mg Tablet PO 40 mg DAILY KAREN Administration Bupropion HCl 150 mg 10/18/24 09:00 10/19/24 10:21 Bupropion Xl 150 Mg Tablet PO 150 mg DAILY KAREN Administration Clopidogrel Bisulfate 75 mg 10/19/24 09:00 10/19/24 10:21 Clopidogrel 75 Mg Tablet PO 75 mg DAILY KAREN Administration Cyclobenzaprine HCl 10 mg 10/18/24 12:45 Cyclobenzaprine 10 Mg Tablet PO TID PRN Spasms Diphenhydramine HCl 25 mg 10/19/24 11:00 10/19/24 12:17 Diphenhydramine Inj 50 Mg/Ml Vial IVP 10/19/24 19:00 25 mg Q4H KAREN Administration Escitalopram Oxalate 20 mg 10/18/24 09:00 10/19/24 10:26 Escitalopram 10 Mg Tablet PO 20 mg DAILY [facility] Administration Glimepiride 3 mg 10/18/24 08:00 10/19/24 10:26 Glimepiride 2 Mg Tablet PO 3 mg 0800 [facility] Administration Heparin Sodium (Porcine) 5,000 unit 10/18/24 09:00 10/19/24 10:22 Heparin 5,000 Unit/Ml Vial SUBQ 5,000 unit BID KAREN Administration Hydralazine HCl 5 mg 10/18/24 05:44 10/18/24 23:48 Hydralazine Inj 20 Mg/Ml Vial IVP 5 mg Q4H PRN Administration Hypertension Hydromorphone HCl 0.5 mg 10/18/24 17:20 Hydromorphone 0.5 Mg/0.5 Ml Syringe IVP Q2H PRN Severe Pain (Level 7-10) Multivitamins 10 ml/ Thiamine 1,011.2 mls @ 100 mls/hr 10/19/24 12:00 10/19/24 12:18 HCl 100 mg/ Folic Acid 1 mg/ IV 10/19/24 22:07 100 mls/hr Sodium Chloride DAILY@1200 [facility] Administration Levofloxacin 750 mg in 150 mls @ 100 mls/hr 10/20/24 17:00 Levaquin 750 Mg/150 Ml IV Q48H [facility] Insulin Human Lispro 0 unit 10/17/24 23:31 10/19/24 12:33 Insulin Lispro 300 Unit/3 Ml Pen SUBQ Not Given ACHS [facility] Protocol Insulin Human Lispro 1 - 5 unit 10/18/24 12:00 10/19/24 12:18 Insulin Lispro 300 Unit/3 Ml Pen SUBQ 2 unit 0800,1200,1700,2100 [facility] Administration Protocol Ketorolac Tromethamine 15 mg 10/18/24 17:36 10/18/24 17:51 Ketorolac 15 Mg/Ml Vial IVP 10/23/24 17:35 15 mg Q6HR PRN Administration Severe Pain (Level 7-10) Labetalol HCl 10 mg 10/18/24 03:39 10/18/24 04:01 Labetalol 20 Mg/4 Ml Syringe IVP 10 mg Q6H PRN Administration hypertension Lidocaine 1 patch 10/17/24 23:31 Lidocaine Patch 4% TOP DAILY PRN Neck pain Losartan Potassium 25 mg 10/18/24 09:00 10/19/24 10:22 Losartan 50 Mg Tablet PO 25 mg DAILY KAREN Administration Methylprednisolone 40 mg 10/19/24 11:00 10/19/24 12:17 Methylprednisolone Succinate 40 Mg/Ml Vial IVP 10/19/24 19:00 40 mg Q4H K[facility]EN Administration Ondansetron HCl 4 mg 10/17/24 23:31 10/18/24 05:03 Ondansetron 4 Mg/2 Ml Vial IVP 4 mg Q6HR PRN Administration Nausea / Vomiting Pantoprazole Sodium 40 mg 10/18/24 09:00 10/19/24 10:21 Pantoprazole 40 Mg Tablet PO 40 mg BID KAREN Administration Nebivolol 5 Mg 1 each 10/18/24 09:00 10/19/24 10:26 Tablet PO 1 each DAILY [facility] Administration Sodium Chloride 10 ml 10/17/24 23:31 Sodium Chloride Flush 0.9% 10 Ml Syringe IVP PRN PRN NEEDED PER PROVIDER ORDERS Sodium Chloride 10 ml 10/18/24 01:00 10/19/24 10:23 Sodium Chloride Flush 0.9% 10 Ml Syringe IVP 10 ml 0100,0900,1700 [facility] Administration Thiamine HCl 100 mg 10/19/24 09:00 10/19/24 10:21 Thiamine 100 Mg Tablet PO 100 mg DAILY [facility]AREN Administration Objective Vital Signs/Intake & Output Reviewed Vital Signs: Yes Vital Signs: Vital Signs x48h Temp Pulse Resp BP Pulse Ox 10/19/24 08:49 37.0 C 96 H 20 152/91 H 94 10/19/24 05:00 36.9 C 90 18 165/99 H 95 Intake & Output: Intake & Output 10/16/24 10/17/24 10/18/24 10/19/24 23:59 23:59 23:59 23:59 Intake Total 427 / 427 963 / 963 Output Total 3300 / 3300 1200 / 1200 Balance -2873 / -2873 -237 / -237 Weight (kg) 82.917 kg 74.5 kg Objective General Appearance: positive No acute distress and Other (sleepy) Eyes Bilateral: positive Normal inspection and PERRL ENT: positive ENT inspection nml Neck: positive Nml inspection Respiratory: positive No respiratory distress and Breath sounds nml Cardiovascular: positive Regular rate & rhythm Abdomen: positive Non-tender Skin: positive Color nml Extremities: positive No pedal edema Neurologic/Psychiatric: positive Facial droop (flattening of the right nasolabial fold) Lab Results 10/19/24 05:20 10/19/24 05:20 Other Labs: Lab Results x24hrs 10/19/24 10/19/24 10/19/24 Range/Units 11:45 08:08 05:20 WBC 13.8 H (4.8-10.8) x10^3/uL RBC 4.03 L (4.20-5.40) 10^6/uL Hgb 12.0 (12.0-16.0) g/dL Hct 37.0 (37.0-47.0) % MCV 91.8 (81.0-99.0) fL MCH 29.8 (27.0-31.0) pg MCHC 32.4 (32.0-36.0) g/dL RDW 13.7 (12.0-15.0) % Plt Count 287 (130-450) 10^3/uL MPV 8.5 (7.9-10.8) fL Neut # (Auto) 10.2 H (1.5-6.6) 10^3/uL Lymph # (Auto) 2.1 (1.5-3.5) 10^3/uL Broome # (Auto) 1.4 H (0.0-1.0) 10^3/uL Eos # (Auto) 0.0 (0.0-0.7) 10^3/uL Baso # (Auto) 0.0 (0.0-0.1) 10^3/uL Absolute Nucleated RBC 0.00 x10^3/uL Nucleated RBC % 0.0 /100WBC Sodium 135 (135-145) mmol/L Potassium 4.0 (3.5-4.5) mmol/L Chloride 103 (101-111) mmol/L Carbon Dioxide 22 (21-32) mmol/L Anion Gap 10.0 (6-13) BUN 26 H (6-20) mg/dL Creatinine 1.3 (0.6-1.3) mg/dL Estimated GFR (MDRD) 39 L (>89) Glucose 93 (74-104) mg/dL POC Whole Bld Glucose 192 130 (70-100) mg/dL Calcium 9.7 (8.5-10.3) mg/dL Ammonia (18-72) umol/L TSH (0.34-5.60) uIU/mL Urine Color Urine Clarity (CLEAR) Urine pH (5.0-7.5) PH Ur Specific Trimble (1.002-1.030) Urine Protein (NEGATIVE) mg/dL Urine Glucose (UA) (NEGATIVE) mg/dL Urine Ketones (NEGATIVE) mg/dL Urine Occult Blood (NEGATIVE) Urine Nitrite (NEGATIVE) Urine Bilirubin (NEGATIVE) Urine Urobilinogen (NORMAL) E.U./dL Ur Leukocyte Esterase (NEGATIVE) Urine RBC (0-5) /HPF Urine WBC (0-5) /HPF Ur Squamous Epith Cells (<= Few) Urine Bacteria (None Seen) /HPF Urine Culture Comments 10/18/24 10/18/24 10/18/24 Range/Units 22:41 20:49 16:33 WBC (4.8-10.8) x10^3/uL RBC (4.20-5.40) 10^6/uL Hgb (12.0-16.0) g/dL Hct (37.0-47.0) % MCV (81.0-99.0) fL MCH (27.0-31.0) pg MCHC (32.0-36.0) g/dL RDW (12.0-15.0) % Plt Count (130-450) 10^3/uL MPV (7.9-10.8) fL Neut # (Auto) (1.5-6.6) 10^3/uL Lymph # (Auto) (1.5-3.5) 10^3/uL Broome # (Auto) (0.0-1.0) 10^3/uL Eos # (Auto) (0.0-0.7) 10^3/uL Baso # (Auto) (0.0-0.1) 10^3/uL Absolute Nucleated RBC x10^3/uL Nucleated RBC % /100WBC Sodium (135-145) mmol/L Potassium (3.5-4.5) mmol/L Chloride (101-111) mmol/L Carbon Dioxide (21-32) mmol/L Anion Gap (6-13) BUN (6-20) mg/dL Creatinine (0.6-1.3) mg/dL Estimated GFR (MDRD) (>89) Glucose (74-104) mg/dL POC Whole Bld Glucose 164 161 (70-100) mg/dL Calcium (8.5-10.3) mg/dL Ammonia (18-72) umol/L TSH (0.34-5.60) uIU/mL Urine Color YELLOW Urine Clarity CLEAR (CLEAR) Urine pH 6.0 (5.0-7.5) PH Ur Specific Tr[place] 1.025 (1.002-1.030) Urine Protein 100 H (NEGATIVE) mg/dL Urine Glucose (UA) NEGATIVE (NEGATIVE) mg/dL Urine Ketones NEGATIVE (NEGATIVE) mg/dL Urine Occult Blood TRACE-INTA (NEGATIVE) Urine Nitrite NEGATIVE (NEGATIVE) Urine Bilirubin NEGATIVE (NEGATIVE) Urine Urobilinogen 0.2 (NORMAL) (NORMAL) E.U./dL Ur Leukocyte Esterase NEGATIVE (NEGATIVE) Urine RBC 0-5 (0-5) /HPF Urine WBC 0-3 (0-5) /HPF Ur Squamous Epith Cells NONE SEEN (<= Few) Urine Bacteria Rare (None Seen) /HPF Urine Culture Comments NOT INDICATED 10/18/24 Range/Units 16:11 WBC (4.8-10.8) x10^3/uL RBC (4.20-5.40) 10^6/uL Hgb (12.0-16.0) g/dL Hct (37.0-47.0) % MCV (81.0-99.0) fL MCH (27.0-31.0) pg MCHC (32.0-36.0) g/dL RDW (12.0-15.0) % Plt Count (130-450) 10^3/uL MPV (7.9-10.8) fL Neut # (Auto) (1.5-6.6) 10^3/uL Lymph # (Auto) (1.5-3.5) 10^3/uL [place] # (Auto) (0.0-1.0) 10^3/uL Eos # (Auto) (0.0-0.7) 10^3/uL Baso # (Auto) (0.0-0.1) 10^3/uL Absolute Nucleated RBC x10^3/uL Nucleated RBC % /100WBC Sodium (135-145) mmol/L Potassium (3.5-4.5) mmol/L Chloride (101-111) mmol/L Carbon Dioxide (21-32) mmol/L Anion Gap (6-13) BUN (6-20) mg/dL Creatinine (0.6-1.3) mg/dL Estimated GFR (MDRD) (>89) Glucose (74-104) mg/dL POC Whole Bld Glucose (70-100) mg/dL Calcium (8.5-10.3) mg/dL Ammonia 21.9 (18-72) umol/L TSH 2.87 (0.34-5.60) uIU/mL Urine Color Urine Clarity (CLEAR) Urine pH (5.0-7.5) PH Ur Specific Tr[place]ble (1.002-1.030) Urine Protein (NEGATIVE) mg/dL Urine Glucose (UA) (NEGATIVE) mg/dL Urine Ketones (NEGATIVE) mg/dL Urine Occult Blood (NEGATIVE) Urine Nitrite (NEGATIVE) Urine Bilirubin (NEGATIVE) Urine Urobilinogen (NORMAL) E.U./dL Ur Leukocyte Esterase (NEGATIVE) Urine RBC (0-5) /HPF Urine WBC (0-5) /HPF Ur Squamous Epith Cells (<= Few) Urine Bacteria (None Seen) /HPF Urine Culture Comments Assessment/Plan Problem List (1) Acute CVA (cerebrovascular accident): Impression: Secondary stroke prevention with aspirin and statin. with right sided neglect and aphasia. Her swallowing ability is variable. She will need speech therapy in the non acute setting due to her aphasia. CT head did not show any bleed. Echocardiogram within normal limits, no concerns. Has been seen by PT and OT and recommendation is for IRF. Permissive HTN for 48 hours. up to SBP 200. . She is getting hydralazine q4h PRN Selected Entries 10/19/24 00:14 10/19/24 00:30 10/19/24 00:46 Blood Pressure Blood Pressure [Left Brachial artery] 167/96 H 180/83 H 174/96 H 10/19/24 01:03 10/19/24 01:07 10/19/24 05:00 Blood Pressure 177/91 H Blood Pressure [Left Brachial artery] 177/91 H 165/99 H 10/19/24 08:49 Blood Pressure Blood Pressure [Left Brachial artery] 152/91 H Home meds for HTN have been resumed. The MRI images are of poor quality, but there is not evidence of CVA seen. Therefore, I am adding on to my workup. I wll check TSH,(2.87- this is normal) I am giving her Vit B supplementation. I am checking an ammonia level (also returned as normal-21.9) Additionally I am ordering an MRI of the brain with and without gadolinium. Although the image quality is poor we do not see a CVA on the non contrast scan. Mental status has waxed and waned over the course of the day but she was able to get up out of bed and work with PT. She is getting premedication for contrast allergy prior to MRI of the brain with and without contrast this afternoon/evening. Family is eager to have diagnostic imaging complete. MRI is unable to take the patient until 1700. Discussed CODE STATUS with her family again today. Her daughter who is a retired RN and her surrogate decision maker (April Pappas) affirms that this patient would like to be full code at this time. (2) Neutrophilic leukocytosis: Impression: 2 Laboratory Tests 02/27/20 06:40 Ur Leukocyte Esterase TRACE H Urine WBC 11-25 H Urine Bacteria Many H 2 Laboratory Tests 10/17/24 10/18/24 10/19/24 20:16 06:07 05:20 WBC 9.6 17.8 H 13.8 H White blood cell count is decreasing. She has not run any fevers. Micro results so far shows greater than 10,000 units however this is urogenital yang. This was a dirty specimen.I will discontinue the Levaquin.. (3) Carotid stenosis: Impression: CTA of the head and neck reveals bilateral ICA stenosis of 50-69%. This indicates the need for vascular surgery consultation in consideration of carotid enarterectomy/stenting for secondary stroke prevention. This can be completed in the outpatient environment. I will start her on Plavix. (4) Type 2 diabetes mellitus: Impression: 02/18/24 reading was 5.4%. Laboratory Tests 10/19/24 05:20 Hemoglobin A1c % 7.5 H Home diabetic regimen is glimepiride 3 mg daily. She is not on metformin. While she is here we have placed her on sliding scale insulin. (5) Hypertension: Impression: permission HTN after CVA. Home meds are resumed. (6) Hyperlipidemia: Impression: On Crestor at home, has been started on atorvastatin here. (7) Hyperkalemia: Impression: Normalized after institution of IV fluids. I will check BMP in the AM. Laboratory Tests 10/18/24 10/18/24 10/19/24 00:40 06:07 05:20 Potassium 4.9 H 5.0 H 4.0 . (8) Hyponatremia: Impression: Self corrected. I did give her IV fluids due to her change in mental status. I think this assisted with correction of her sodium level. Laboratory Tests 10/18/24 10/19/24 06:07 05:20 Sodium 133 L 135 I have spent 50 minutes in the care of this patient today. This includes time [id number], review and ordering of diagnostic imaging and laboratory studies. Monitoring the patient's signs symptoms, evaluation of medication effectiveness and patient's response to treatment.
[2024-10-19] MEDS ORDERED: GADOTERATE MEGLUMINE 7.5 MMOL/15 ML VIAL ONE (16:43)
[2024-10-19] MEDS: GADOTERATE MEGLUMINE 7.5 MMOL/15 ML VIAL IVP ONE (17:41)
--- NOTE | 2024-10-19 18:18 | MRI Report ---
PROCEDURE: MRI Brain W/WO INDICATIONS: right sided neglect, negative MRI wo ? tumor CONTRAST: Clariscan 15.0 ML TECHNIQUE: Noncontrast axial T1 spin echo, axial T2 fast spin echo, sagittal and axial FLAIR, coronal T2 fast sp in echo, axial gradient echo, axial diffusion and ADC through the brain. After the administration of contrast, axial and coronal T1 spin echo with fat saturation through the brain. COMPARISON: CT head without contrast 10/17/2024, CT head and neck angiogram 10/17/2024, MRI brain wi thout contrast 10/18/2024 FINDINGS: Image quality: Fair; motion artifact limits evaluation. CSF spaces: Basal cisterns are patent. No extra-axial fluid collections. Ventricles are normal in size and shape. Brain: No midline shift. No intracranial bleeds or masses. No abnormal intracranial enhancement. There is cerebral volume loss for age. There is periventricular white matter chronic small vessel is chemic change. The brainstem appears normal. Diffusion-weighted images demonstrate no acute ischemi c insults. No chronic ischemic insults. Normal intravascular flow voids are present. Skull and face: Calvarial marrow is normal in signal. Orbits appear normal. Sinuses: Partial opacification of the maxillary sinuses. Sinuses and mastoids otherwise appear clear. IMPRESSION: Within the limits of motion artifact, no acute stroke, intracranial mass effect, or abnormal enhancem ent. Reviewed by: Caleb Serrano MD on 10/19/2024 6:17 PM PST Approved by: Caleb Serrano MD on 10/19/2024 6:17 PM PST Station ID: [id number]
[2024-10-19] MEDS: INSULIN LISPRO 300 UNIT/3 ML PEN SUBQ SCH (18:19)
[2024-10-19] MEDS: CYCLOBENZAPRINE 10 MG TABLET PO PRN (18:43)
[2024-10-20 05:44] LABS: BASOPHILS % (AUTO) 0.1 %; HCT - HEMATOCRIT 38.8 % (37.0-47.0); HGB - HEMOGLOBIN 12.6 g/dL (12.0-16.0); LYMPHOCYTES # (AUTO) 1.1 10^3/uL (1.5-3.5); MEAN CORPUSCULAR HEMOGLOBIN 29.9 pg (27.0-31.0); MEAN CORPUSCULAR HGB CONC 32.5 g/dL (32.0-36.0); MEAN CORPUSCULAR VOLUME 91.9 fL (81.0-99.0); MEAN PLATELET VOLUME 8.5 fL (7.9-10.8); MONOCYTES # (AUTO) 0.7 10^3/uL (0.0-1.0); MONOCYTES % (AUTO) 4.9 %; NEUTROPHILS # (AUTO) 11.6 10^3/uL (1.5-6.6); NEUTROPHILS % (AUTO) 86.3 %; PLT - PLATELET COUNT 309 10^3/uL (130-450); RED BLOOD COUNT 4.22 10^6/uL (4.20-5.40); RED CELL DISTRIBUTION WIDTH 13.6 % (12.0-15.0); WHITE BLOOD COUNT 13.4 x10^3/uL (4.8-10.8)
[2024-10-20 06:01] LABS: CALCIUM 9.7 mg/dL (8.5-10.3); CREATININE 1.3 mg/dL (0.6-1.3); POTASSIUM 4.5 mmol/L (3.5-4.5)
[2024-10-20] MEDS: MULTIVITAMIN W/MINERALS TABLET PO SCH (08:58)
[2024-10-20] MEDS: INSULIN GLARGINE-YFGN 300 UNIT/3 ML PEN SUBQ SCH (09:16)
[2024-10-20] MEDS: LORazepam 2 MG/ML VIAL IVP ONE (10:04)
--- NOTE | 2024-10-20 10:44 | PROVIDER PROGRESS NOTE ---
Subjective Prog Note Date Prog Note Date: 10/20/24 Prog Note Time: 08:30 Subjective Pt reports feeling: Improved Subjective: She is sitting up in bed. She has some difficulties occasionally articulating her thoughts but she is much improved. She is tolerating pured diet and liquids well. She will be advanced. Her thinking is much more clear. She is able to tell me about the personality characteristics of her different children. [place] she understands the benefits that can be gained at inpatient rehab and is eager to transition to the next phase of care. Prior to this event she was driving out in the community. She does have macular degeneration and she is feeling less and less confident in her ability to drive but she was doing so. She was making cookies with her grandchildren and helping to care for her who has dementia. Current Medications Current Medications Current Medications: Current Medications Generic Name Dose Route Start Last Admin Trade Name Freq PRN Reason Stop Dose Admin Acetaminophen 650 mg 10/17/24 23:31 10/18/24 08:40 Acetaminophen 325 Mg Tablet PO 650 mg Q4HR PRN Administration Pain 1 to 4, or Fever Aspirin 325 mg 10/18/24 09:00 10/20/24 08:58 Aspirin Ec 325 Mg Tablet PO 325 mg DAILY KAREN Administration Atorvastatin Calcium 40 mg 10/18/24 09:00 10/20/24 08:58 Atorvastatin 40 Mg Tablet PO 40 mg DAILY KAREN Administration Bupropion HCl 150 mg 10/18/24 09:00 10/20/24 08:58 Bupropion Xl 150 Mg Tablet PO 150 mg DAILY KAREN Administration Clopidogrel Bisulfate 75 mg 10/19/24 09:00 10/20/24 08:58 Clopidogrel 75 Mg Tablet PO 75 mg DAILY KAREN Administration Cyclobenzaprine HCl 10 mg 10/18/24 12:45 10/19/24 18:43 Cyclobenzaprine 10 Mg Tablet PO 10 mg TID PRN Administration Spasms Escitalopram Oxalate 20 mg 10/18/24 09:00 10/20/24 08:58 Escitalopram 10 Mg Tablet PO 20 mg DAILY KAREN Administration Glimepiride 3 mg 10/18/24 08:00 10/20/24 08:59 Glimepiride 2 Mg Tablet PO 3 mg 0800 KAREN Administration Heparin Sodium (Porcine) 5,000 unit 10/18/24 09:00 10/20/24 08:01 Heparin 5,000 Unit/Ml Vial SUBQ 5,000 unit BID KAREN Administration Hydralazine HCl 5 mg 10/18/24 05:44 10/18/24 23:48 Hydralazine Inj 20 Mg/Ml Vial IVP 5 mg Q4H PRN Administration Hypertension Hydromorphone HCl 0.5 mg 10/18/24 17:20 Hydromorphone 0.5 Mg/0.5 Ml Syringe IVP Q2H PRN Severe Pain (Level 7-10) Insulin Glargine-yfgn 10 unit 10/20/24 09:00 10/20/24 09:16 Insulin Glargine-Yfgn 300 Unit/3 Ml Pen SUBQ 10 unit DAILY KAREN Administration Insulin Human Lispro 1 - 5 unit 10/19/24 17:00 10/20/24 07:59 Insulin Lispro 300 Unit/3 Ml Pen SUBQ 2 unit 0800,1200,1700,2100 KAREN Administration Protocol Ketorolac Tromethamine 15 mg 10/18/24 17:36 10/20/24 09:28 Ketorolac 15 Mg/Ml Vial IVP 10/23/24 17:35 15 mg Q6HR PRN Administration Severe Pain (Level 7-10) Labetalol HCl 10 mg 10/18/24 03:39 10/18/24 04:01 Labetalol 20 Mg/4 Ml Syringe IVP 10 mg Q6H PRN Administration hypertension Lidocaine 1 patch 10/17/24 23:31 Lidocaine Patch 4% TOP DAILY PRN Neck pain Losartan Potassium 25 mg 10/18/24 09:00 10/20/24 08:59 Losartan 50 Mg Tablet PO 25 mg DAILY KAREN Administration Multivitamins/Minerals 1 tab 10/20/24 08:00 10/20/24 08:58 Multivitamin W/Minerals Tablet PO 1 tab DAILYWM KAREN Administration Ondansetron HCl 4 mg 10/17/24 23:31 10/18/24 05:03 Ondansetron 4 Mg/2 Ml Vial IVP 4 mg Q6HR PRN Administration Nausea / Vomiting Pantoprazole Sodium 40 mg 10/18/24 09:00 10/20/24 08:58 Pantoprazole 40 Mg Tablet PO 40 mg BID KAREN Administration Nebivolol 5 Mg 1 each 10/18/24 09:00 10/20/24 08:59 Tablet PO 1 each DAILY KAREN Administration Sodium Chloride 10 ml 10/17/24 23:31 Sodium Chloride Flush 0.9% 10 Ml Syringe IVP PRN PRN NEEDED PER PROVIDER ORDERS Sodium Chloride 10 ml 10/18/24 01:00 10/20/24 08:59 Sodium Chloride Flush 0.9% 10 Ml Syringe IVP 10 ml 0100,0900,1700 KAREN Administration Thiamine HCl 100 mg 10/19/24 09:00 10/20/24 08:58 Thiamine 100 Mg Tablet PO 100 mg DAILY KAREN Administration Objective Vital Signs/Intake & Output Reviewed Vital Signs: Yes Vital Signs: Vital Signs x48h Temp Pulse Resp BP Pulse Ox 10/20/24 08:54 37 C 105 H 20 160/86 H 96 Intake & Output: Intake & Output 10/17/24 10/18/24 10/19/24 10/20/24 23:59 23:59 23:59 23:59 Intake Total 427 / 427 2510 / 2510 1094.2 / 1094.2 Output Total 3300 / 3300 1725 / 1725 1000 / 1000 Balance -2873 / -2873 785 / 785 94.2 / 94.2 Weight (kg) 82.917 kg 74.5 kg Objective General Appearance: positive No acute distress and Alert Eyes Bilateral: positive Normal inspection and PERRL ENT: positive ENT inspection nml Neck: positive Nml inspection Respiratory: positive No respiratory distress and Breath sounds nml Cardiovascular: positive Regular rate & rhythm Abdomen: positive Non-tender and No distention Skin: positive Color nml Extremities: positive Non-tender and No pedal edema Neurologic/Psychiatric: positive Oriented x3, Facial droop (R) and Other (The right sided neglect is much improved. She knows there is a cracker on the right side of her tray. She looks at me sitting on the right side of the bed. ); negative Weakness or Slurred/abnml speech Lab Results 10/20/24 05:32 10/20/24 05:32 Other Labs: Lab Results x24hrs 10/20/24 10/20/24 10/19/24 Range/Units 07:37 05:32 21:32 WBC 13.4 H (4.8-10.8) x10^3/uL RBC 4.22 (4.20-5.40) 10^6/uL Hgb 12.6 (12.0-16.0) g/dL Hct 38.8 (37.0-47.0) % MCV 91.9 (81.0-99.0) fL MCH 29.9 (27.0-31.0) pg MCHC 32.5 (32.0-36.0) g/dL RDW 13.6 (12.0-15.0) % Plt Count 309 (130-450) 10^3/uL MPV 8.5 (7.9-10.8) fL Neut # (Auto) 11.6 H (1.5-6.6) 10^3/uL Lymph # (Auto) 1.1 L (1.5-3.5) 10^3/uL [place] # (Auto) 0.7 (0.0-1.0) 10^3/uL Eos # (Auto) 0.0 (0.0-0.7) 10^3/uL Baso # (Auto) 0.0 (0.0-0.1) 10^3/uL Absolute Nucleated RBC 0.00 x10^3/uL Nucleated RBC % 0.0 /100WBC Sodium 133 L (135-145) mmol/L Potassium 4.5 (3.5-4.5) mmol/L Chloride 103 (101-111) mmol/L Carbon Dioxide 19 L (21-32) mmol/L Anion Gap 11.0 (6-13) BUN 31 H (6-20) mg/dL Creatinine 1.3 (0.6-1.3) mg/dL Estimated GFR (MDRD) 39 L (>89) Glucose 233 H (74-104) mg/dL POC Whole Bld Glucose 192 335 (70-100) mg/dL Estimat Average Glucose (70-100) mg/dL Hemoglobin A1c % (4.27-6.07) % Calcium 9.7 (8.5-10.3) mg/dL 10/19/24 10/19/24 10/19/24 Range/Units 20:33 16:36 11:45 WBC (4.8-10.8) x10^3/uL RBC (4.20-5.40) 10^6/uL Hgb (12.0-16.0) g/dL Hct (37.0-47.0) % MCV (81.0-99.0) fL MCH (27.0-31.0) pg MCHC (32.0-36.0) g/dL RDW (12.0-15.0) % Plt Count (130-450) 10^3/uL MPV (7.9-10.8) fL Neut # (Auto) (1.5-6.6) 10^3/uL Lymph # (Auto) (1.5-3.5) 10^3/uL [place] # (Auto) (0.0-1.0) 10^3/uL Eos # (Auto) (0.0-0.7) 10^3/uL Baso # (Auto) (0.0-0.1) 10^3/uL Absolute Nucleated RBC x10^3/uL Nucleated RBC % /100WBC Sodium (135-145) mmol/L Potassium (3.5-4.5) mmol/L Chloride (101-111) mmol/L Carbon Dioxide (21-32) mmol/L Anion Gap (6-13) BUN (6-20) mg/dL Creatinine (0.6-1.3) mg/dL Estimated GFR (MDRD) (>89) Glucose (74-104) mg/dL POC Whole Bld Glucose 365 214 192 (70-100) mg/dL Estimat Average Glucose (70-100) mg/dL Hemoglobin A1c % (4.27-6.07) % Calcium (8.5-10.3) mg/dL 10/19/24 Range/Units 05:20 WBC (4.8-10.8) x10^3/uL RBC (4.20-5.40) 10^6/uL Hgb (12.0-16.0) g/dL Hct (37.0-47.0) % MCV (81.0-99.0) fL MCH (27.0-31.0) pg MCHC (32.0-36.0) g/dL RDW (12.0-15.0) % Plt Count (130-450) 10^3/uL MPV (7.9-10.8) fL Neut # (Auto) (1.5-6.6) 10^3/uL Lymph # (Auto) (1.5-3.5) 10^3/uL [place] # (Auto) (0.0-1.0) 10^3/uL Eos # (Auto) (0.0-0.7) 10^3/uL Baso # (Auto) (0.0-0.1) 10^3/uL Absolute Nucleated RBC x10^3/uL Nucleated RBC % /100WBC Sodium (135-145) mmol/L Potassium (3.5-4.5) mmol/L Chloride (101-111) mmol/L Carbon Dioxide (21-32) mmol/L Anion Gap (6-13) BUN (6-20) mg/dL Creatinine (0.6-1.3) mg/dL Estimated GFR (MDRD) (>89) Glucose (74-104) mg/dL POC Whole Bld Glucose (70-100) mg/dL Estimat Average Glucose 169 H (70-100) mg/dL Hemoglobin A1c % 7.5 H (4.27-6.07) % Calcium (8.5-10.3) mg/dL Assessment/Plan Problem List (1) Acute CVA (cerebrovascular accident): Impression: 10/20: Continuing secondary stroke prevention with aspirin and statin. Her swallowing is improving today. I think that her swallowing is much affected by her fatigue level. She is eager to transition to the next phase of care. Please see discussion of blood pressure management below. MRI of the brain with and without contrast was somewhat limited image quality but no tumor seen. Additionally no CVA is seen. I think clinically this patient has had a stroke. 10/19: Secondary stroke prevention with aspirin, plavix and statin. with right sided neglect and aphasia. Her swallowing ability is variable. She will need speech therapy in the non acute setting due to her aphasia. CT head did not show any bleed. Echocardiogram within normal limits, no concerns. Has been seen by PT and OT and recommendation is for IRF. Permissive HTN for 48 hours. up to SBP 200. . She is getting hydralazine q4h PRN Selected Entries 10/19/24 00:14 10/19/24 00:30 10/19/24 00:46 Blood Pressure Blood Pressure [Left Brachial artery] 167/96 H 180/83 H 174/96 H 10/19/24 01:03 10/19/24 01:07 10/19/24 05:00 Blood Pressure 177/91 H Blood Pressure [Left Brachial artery] 177/91 H 165/99 H 10/19/24 08:49 Blood Pressure Blood Pressure [Left Brachial artery] 152/91 H Home meds for HTN have been resumed. The MRI images are of poor quality, but there is not evidence of CVA seen. Therefore, I am adding on to my workup. I wll check TSH,(2.87- this is normal) I am giving her Vit B supplementation. I am checking an ammonia level (also returned as normal-21.9) Additionally I am ordering an MRI of the brain with and without gadolinium. Although the image quality is poor we do not see a CVA on the non contrast scan. Mental status has waxed and waned over the course of the day but she was able to get up out of bed and work with PT. She is getting premedication for contrast allergy prior to MRI of the brain with and without contrast this afternoon/evening. Family is eager to have diagnostic imaging complete. MRI is unable to take the patient until 1700. Discussed CODE STATUS with her family again today. Her daughter who is a retired RN and her surrogate decision maker (April Pappas) affirms that this patient would like to be full code at this time. (2) Neutrophilic leukocytosis: Impression: 2 Laboratory Tests 02/27/20 06:40 Ur Leukocyte Esterase TRACE H Urine WBC 11-25 H Urine Bacteria Many H 2 Laboratory Tests 10/18/24 10/19/24 10/20/24 06:07 05:20 05:32 WBC 17.8 H 13.8 H 13.4 H White blood cell count is decreasing. She has not run any fevers. urine Micro results so far shows greater than 10,000 units however this is urogenital yang. This was a dirty specimen.I have discontinued Levaquin. (3) Carotid stenosis: Impression: CTA of the head and neck reveals bilateral ICA stenosis of 50-69%. This indicates the need for vascular surgery consultation in consideration of carotid enarterectomy/stenting for secondary stroke prevention. This can be completed in the outpatient environment. I have started her on Plavix and recommend that this be continued at least until she has seen vascular surgery. Qualifiers: Laterality: bilateral Qualified Code(s): I65.23 - Occlusion and stenosis of bilateral carotid arteries (4) Type 2 diabetes mellitus: Impression: 02/18/24 reading was 5.4%. Laboratory Tests 10/19/24 05:20 Hemoglobin A1c % 7.5 H Home diabetic regimen is glimepiride 3 mg daily. She is not on metformin. While she is here we have placed her on sliding scale insulin. This morning I have added Lantus insulin 10unites daily. She needs better control of her diabetes. She daughter, Valeri is not in favor of metformin. Qualifiers: Diabetes mellitus complication status: with hyperglycemia Diabetes mellitus shelter insulin use: without shelter use Qualified Code(s): E11.65 - Type 2 diabetes mellitus with hyperglycemia (5) Hypertension: Impression: permissive HTN after CVA. Home meds are resumed. Cozaar 25 mg daily. I am going to increase this to 50 mg daily as I think she needs slightly better control of her blood pressure. Selected Entries 10/19/24 15:00 10/19/24 15:38 10/19/24 20:17 Blood Pressure [Left Brachial artery] Blood Pressure [Right Brachial artery] 163/94 H 157/91 H 142/72 H 10/19/24 23:50 10/20/24 08:54 Blood Pressure [Left Brachial artery] 169/93 H Blood Pressure [Right Brachial artery] 160/86 H Qualifiers: Hypertension type: primary hypertension Qualified Code(s): I10 - Essential (primary) hypertension (6) Hyperlipidemia: Impression: On Crestor at home, has been started on atorvastatin here. Qualifiers: Hyperlipidemia type: unspecified Qualified Code(s): E78.5 - Hyperlipidemia, unspecified (7) Hyperkalemia: Impression: Normalized after institution of IV fluids. I will check BMP in the AM. There is some hyperkalemia associated with ARB use. Laboratory Tests 10/19/24 10/20/24 05:20 05:32 Potassium 4.0 4.5 (8) Hyponatremia: Impression: Mild and asymptomatic. Laboratory Tests 10/18/24 10/19/24 10/20/24 06:07 05:20 05:32 Sodium 133 L 135 133 L I have spent 40 minutes in the care of this patient today. This includes time [id number], review and ordering of diagnostic imaging and laboratory studies. Monitoring the patient's signs symptoms, evaluation of medication effectiveness and patient's response to treatment.
[2024-10-20] MEDS ORDERED: levoFLOXacin 750 MG/150 ML 750 MG/150 ML BAG IV SCH (17:00)
[2024-10-21 05:59] LABS: BASOPHILS # (AUTO) 0.1 10^3/uL (0.0-0.1); BASOPHILS % (AUTO) 0.4 %; EOSINOPHILS # (AUTO) 0.1 10^3/uL (0.0-0.7); EOSINOPHILS % (AUTO) 0.8 %; HCT - HEMATOCRIT 35.1 % (37.0-47.0); HGB - HEMOGLOBIN 11.4 g/dL (12.0-16.0); LYMPHOCYTES # (AUTO) 2.9 10^3/uL (1.5-3.5); LYMPHOCYTES % (AUTO) 20.9 %; MEAN CORPUSCULAR HGB CONC 32.5 g/dL (32.0-36.0); MEAN CORPUSCULAR VOLUME 92.4 fL (81.0-99.0); MEAN PLATELET VOLUME 8.9 fL (7.9-10.8); MONOCYTES # (AUTO) 1.1 10^3/uL (0.0-1.0); MONOCYTES % (AUTO) 7.9 %; NEUTROPHILS # (AUTO) 9.8 10^3/uL (1.5-6.6); NEUTROPHILS % (AUTO) 69.5 %; PLT - PLATELET COUNT 261 10^3/uL (130-450); RED CELL DISTRIBUTION WIDTH 13.5 % (12.0-15.0); WHITE BLOOD COUNT 14.1 x10^3/uL (4.8-10.8)
[2024-10-21 06:26] LABS: CALCIUM 9.1 mg/dL (8.5-10.3); CREATININE 1.3 mg/dL (0.6-1.3); POTASSIUM 4.1 mmol/L (3.5-4.5)
--- NOTE | 2024-10-21 08:04 | PROVIDER PROGRESS NOTE ---
Subjective Prog Note Date Prog Note Date: 10/21/24 Prog Note Time: 07:56 Subjective Pt reports feeling: No change Subjective: She feels good this morning. Some difficulty with orientation. She knows she has been 35 years, but cannot tell me that it is 2023. She knows that Nathen is coming up but she fails to tell me that it is October. Otherwise she denies any pain. She is not having any headache. She is not having any cough chest pain or difficulty breathing. Current Medications Current Medications Current Medications: Current Medications Generic Name Dose Route Start Last Admin Trade Name Freq PRN Reason Stop Dose Admin Acetaminophen 650 mg 10/17/24 23:31 10/20/24 19:18 Acetaminophen 325 Mg Tablet PO 650 mg Q4HR PRN Administration Pain 1 to 4, or Fever Aspirin 325 mg 10/18/24 09:00 10/20/24 08:58 Aspirin Ec 325 Mg Tablet PO 325 mg DAILY KAREN Administration Atorvastatin Calcium 40 mg 10/18/24 09:00 10/20/24 08:58 Atorvastatin 40 Mg Tablet PO 40 mg DAILY KAREN Administration Bupropion HCl 150 mg 10/18/24 09:00 10/20/24 08:58 Bupropion Xl 150 Mg Tablet PO 150 mg DAILY KAREN Administration Clopidogrel Bisulfate 75 mg 10/19/24 09:00 10/20/24 08:58 Clopidogrel 75 Mg Tablet PO 75 mg DAILY KARNE Administration Cyclobenzaprine HCl 10 mg 10/18/24 12:45 10/19/24 18:43 Cyclobenzaprine 10 Mg Tablet PO 10 mg TID PRN Administration Spasms Escitalopram Oxalate 20 mg 10/18/24 09:00 10/20/24 08:58 Escitalopram 10 Mg Tablet PO 20 mg DAILY KAREN Administration Glimepiride 3 mg 10/18/24 08:00 10/20/24 08:59 Glimepiride 2 Mg Tablet PO 3 mg 0800 KAREN Administration Heparin Sodium (Porcine) 5,000 unit 10/18/24 09:00 10/20/24 21:00 Heparin 5,000 Unit/Ml Vial SUBQ 5,000 unit BID KAREN Administration Hydralazine HCl 5 mg 10/18/24 05:44 10/18/24 23:48 Hydralazine Inj 20 Mg/Ml Vial IVP 5 mg Q4H PRN Administration Hypertension Hydromorphone HCl 0.5 mg 10/18/24 17:20 Hydromorphone 0.5 Mg/0.5 Ml Syringe IVP Q2H PRN Severe Pain (Level 7-10) Insulin Glargine-yfgn 10 unit 10/20/24 09:00 10/20/24 09:16 Insulin Glargine-Yfgn 300 Unit/3 Ml Pen SUBQ 10 unit DAILY KAREN Administration Insulin Human Lispro 1 - 5 unit 10/19/24 17:00 10/20/24 20:49 Insulin Lispro 300 Unit/3 Ml Pen SUBQ Not Given 0800,1200,1700,2100 [facility] Protocol Ketorolac Tromethamine 15 mg 10/18/24 17:36 10/20/24 17:03 Ketorolac 15 Mg/Ml Vial IVP 10/23/24 17:35 15 mg Q6HR PRN Administration Severe Pain (Level 7-10) Labetalol HCl 10 mg 10/18/24 03:39 10/18/24 04:01 Labetalol 20 Mg/4 Ml Syringe IVP 10 mg Q6H PRN Administration hypertension Lidocaine 1 patch 10/17/24 23:31 Lidocaine Patch 4% TOP DAILY PRN Neck pain Losartan Potassium 50 mg 10/21/24 09:00 Losartan 50 Mg Tablet PO DAILY KAREN Multivitamins/Minerals 1 tab 10/20/24 08:00 10/20/24 08:58 Multivitamin W/Minerals Tablet PO 1 tab DAILYWM KAREN Administration Ondansetron HCl 4 mg 10/17/24 23:31 10/18/24 05:03 Ondansetron 4 Mg/2 Ml Vial IVP 4 mg Q6HR PRN Administration Nausea / Vomiting Pantoprazole Sodium 40 mg 10/18/24 09:00 10/20/24 21:00 Pantoprazole 40 Mg Tablet PO 40 mg BID KAREN Administration Nebivolol 5 Mg 1 each 10/18/24 09:00 10/20/24 08:59 Tablet PO 1 each DAILY KAREN Administration Sodium Chloride 10 ml 10/17/24 23:31 Sodium Chloride Flush 0.9% 10 Ml Syringe IVP PRN PRN NEEDED PER PROVIDER ORDERS Sodium Chloride 10 ml 10/18/24 01:00 10/21/24 01:55 Sodium Chloride Flush 0.9% 10 Ml Syringe IVP 10 ml 0100,0900,1700 KAREN Administration Thiamine HCl 100 mg 10/19/24 09:00 10/20/24 08:58 Thiamine 100 Mg Tablet PO 100 mg DAILY KAREN Administration Objective Vital Signs/Intake & Output Reviewed Vital Signs: Yes Vital Signs: Vital Signs x48h Temp Pulse Pulse Resp BP Pulse Ox 10/21/24 07:38 36.6 C 76 16 126/91 H 96 10/21/24 00:00 36.7 C 83 18 136/76 H 96 Intake & Output: Intake & Output 10/18/24 10/19/24 10/20/24 10/21/24 23:59 23:59 23:59 23:59 Intake Total 427 / 427 2510 / 2510 2934.2 / 2934.2 150 / 150 Output Total 3300 / 3300 1725 / 1725 1000 / 1000 650 / 650 Balance -2873 / -2873 785 / 785 1934.2 / 1934.2 -500 / -500 Weight (kg) 74.5 kg Objective General Appearance: positive No acute distress and Alert Eyes Bilateral: positive Normal inspection and PERRL ENT: positive ENT inspection nml Neck: positive Nml inspection Respiratory: positive No respiratory distress and Breath sounds nml Cardiovascular: positive Regular rate & rhythm Abdomen: positive Non-tender and No distention Skin: positive Color nml Extremities: positive Non-tender and No pedal edema Neurologic/Psychiatric: positive Oriented x3 and Facial droop (R); negative Weakness or Slurred/abnml speech Lab Results 10/21/24 05:41 10/21/24 05:41 Other Labs: Lab Results x24hrs 10/21/24 10/21/24 10/20/24 Range/Units 07:31 05:41 20:39 WBC 14.1 H (4.8-10.8) x10^3/uL RBC 3.80 L (4.20-5.40) 10^6/uL Hgb 11.4 L (12.0-16.0) g/dL Hct 35.1 L (37.0-47.0) % MCV 92.4 (81.0-99.0) fL MCH 30.0 (27.0-31.0) pg MCHC 32.5 (32.0-36.0) g/dL RDW 13.5 (12.0-15.0) % Plt Count 261 (130-450) 10^3/uL MPV 8.9 (7.9-10.8) fL Neut # (Auto) 9.8 H (1.5-6.6) 10^3/uL Lymph # (Auto) 2.9 (1.5-3.5) 10^3/uL [place] # (Auto) 1.1 H (0.0-1.0) 10^3/uL Eos # (Auto) 0.1 (0.0-0.7) 10^3/uL Baso # (Auto) 0.1 (0.0-0.1) 10^3/uL Absolute Nucleated RBC 0.00 x10^3/uL Nucleated RBC % 0.0 /100WBC Sodium 134 L (135-145) mmol/L Potassium 4.1 (3.5-4.5) mmol/L Chloride 104 (101-111) mmol/L Carbon Dioxide 23 (21-32) mmol/L Anion Gap 7.0 (6-13) BUN 43 H (6-20) mg/dL Creatinine 1.3 (0.6-1.3) mg/dL Estimated GFR (MDRD) 39 L (>89) Glucose 175 H (74-104) mg/dL POC Whole Bld Glucose 139 125 (70-100) mg/dL Calcium 9.1 (8.5-10.3) mg/dL Anti-Cardiolipin IgA Ab (0-11) APL U/mL 10/20/24 10/20/24 10/18/24 Range/Units 16:39 11:49 09:01 WBC (4.8-10.8) x10^3/uL RBC (4.20-5.40) 10^6/uL Hgb (12.0-16.0) g/dL Hct (37.0-47.0) % MCV (81.0-99.0) fL MCH (27.0-31.0) pg MCHC (32.0-36.0) g/dL RDW (12.0-15.0) % Plt Count (130-450) 10^3/uL MPV (7.9-10.8) fL Neut # (Auto) (1.5-6.6) 10^3/uL Lymph # (Auto) (1.5-3.5) 10^3/uL [place] # (Auto) (0.0-1.0) 10^3/uL Eos # (Auto) (0.0-0.7) 10^3/uL Baso # (Auto) (0.0-0.1) 10^3/uL Absolute Nucleated RBC x10^3/uL Nucleated RBC % /100WBC Sodium (135-145) mmol/L Potassium (3.5-4.5) mmol/L Chloride (101-111) mmol/L Carbon Dioxide (21-32) mmol/L Anion Gap (6-13) BUN (6-20) mg/dL Creatinine (0.6-1.3) mg/dL Estimated GFR (MDRD) (>89) Glucose (74-104) mg/dL POC Whole Bld Glucose 139 220 (70-100) mg/dL Calcium (8.5-10.3) mg/dL Anti-Cardiolipin IgA Ab <9 (0-11) APL U/mL Assessment/Plan Problem List (1) Acute CVA (cerebrovascular accident): Impression: 10/21:Continues to have improvements in her mental status and activity tolerance. I have no PT/OT services available today. She will get up and walk with nurses. We are working on placement and she is being considered by [facility] inpatient rehab in [place]. They have requested that we discuss her case with a neurologist. This is because her imaging has actually been negative for stroke. I therefore called Dr. Zarate at [facility] neurology. He is the on-call neurologist today. I discussed her case thoroughly. He feels that it is still quite likely that she had a stroke. There is a such thing as MRI negative strokes. Occasionally there is a stroke that is not seen on the MRI because of the size of it. His recommendation is that she remain on dual antiplatelet therapy for total of 3 weeks. She should then remain on aspirin as antiplatelet therapy indefinitely. He feels that if the therapist agree that she should be going to inpatient rehab that is an appropriate disposition. 10/20: Continuing secondary stroke prevention with aspirin and statin. Her swallowing is improving today. I think that her swallowing is much affected by her fatigue level. She is eager to transition to the next phase of care. Please see discussion of blood pressure management below. MRI of the brain with and without contrast was somewhat limited image quality but no tumor seen. Additionally no CVA is seen. I think clinically this patient has had a stroke. 10/19: Secondary stroke prevention with aspirin, plavix and statin. with right sided neglect and aphasia. Her swallowing ability is variable. She will need speech therapy in the non acute setting due to her aphasia. CT head did not show any bleed. Echocardiogram within normal limits, no concerns. Has been seen by PT and OT and recommendation is for IRF. Permissive HTN for 48 hours. up to SBP 200. . She is getting hydralazine q4h PRN Selected Entries 10/19/24 00:14 10/19/24 00:30 10/19/24 00:46 Blood Pressure Blood Pressure [Left Brachial artery] 167/96 H 180/83 H 174/96 H 10/19/24 01:03 10/19/24 01:07 10/19/24 05:00 Blood Pressure 177/91 H Blood Pressure [Left Brachial artery] 177/91 H 165/99 H 10/19/24 08:49 Blood Pressure Blood Pressure [Left Brachial artery] 152/91 H Home meds for HTN have been resumed. The MRI images are of poor quality, but there is not evidence of CVA seen. Therefore, I am adding on to my workup. I wll check TSH,(2.87- this is normal) I am giving her Vit B supplementation. I am checking an ammonia level (also returned as normal-21.9) Additionally I am ordering an MRI of the brain with and without gadolinium. Although the image quality is poor we do not see a CVA on the non contrast scan. Mental status has waxed and waned over the course of the day but she was able to get up out of bed and work with PT. She is getting premedication for contrast allergy prior to MRI of the brain with and without contrast this afternoon/evening. Family is eager to have diagnostic imaging complete. MRI is unable to take the patient until 1700. Discussed CODE STATUS with her family again today. Her daughter who is a retired RN and her surrogate decision maker (April Pappas) affirms that this patient would like to be full code at this time. (2) Neutrophilic leukocytosis: Impression: 2 Laboratory Tests 02/27/20 06:40 Ur Leukocyte Esterase TRACE H Urine WBC 11-25 H Urine Bacteria Many H 2 Laboratory Tests 10/19/24 10/20/24 10/21/24 05:20 05:32 05:41 WBC 13.8 H 13.4 H 14.1 H No fevers or other indicators of infection or sepsis. She is not having any cough. Her lungs are clear to auscultation. I will check CBC in the AM urine Micro results so far shows greater than 10,000 units however this is urogenital yang. This was a dirty specimen.I have discontinued Levaquin. (3) Carotid stenosis: Impression: CTA of the head and neck reveals bilateral ICA stenosis of 50-69%. This indicates the need for vascular surgery consultation in consideration of carotid enarterectomy/stenting for secondary stroke prevention. This can be completed in the outpatient environment. After my discussion with neurology today. I am recommending Plavix for duration of 21 days and then as recommended by vascular surgery. This should be an outpatient consultation. Qualifiers: Laterality: bilateral Qualified Code(s): I65.23 - Occlusion and stenosis of bilateral carotid arteries (4) Type 2 diabetes mellitus: Impression: 02/18/24 reading was 5.4%. Selected Entries 10/20/24 20:49 10/21/24 07:38 10/21/24 08:37 Result (mg/dL) 125 139 139 Laboratory Tests 10/19/24 05:20 Hemoglobin A1c % 7.5 H Home diabetic regimen is glimepiride 3 mg daily. She is not on metformin. While she is here we have placed her on sliding scale insulin. added Glargine insulin for better blood sugar control. She needs better control of her diabetes. She daughter, Valeri is not in favor of metformin. Qualifiers: Diabetes mellitus complication status: with hyperglycemia Diabetes mellitus detention insulin use: without termination clerk use Qualified Code(s): E11.65 - Type 2 diabetes mellitus with hyperglycemia (5) Hypertension: Impression: permissive HTN after CVA. Home meds are resumed. Cozaar 25 mg daily. I am going to increase this to 50 mg daily as I think she needs slightly better control of her blood pressure. Selected Entries 10/21/24 00:00 10/21/24 07:38 Pulse Rate [Brachial] 76 Pulse Rate [Monitoring electrodes] 83 Blood Pressure [Left Brachial artery] 136/76 H 126/91 H Qualifiers: Hypertension type: primary hypertension Qualified Code(s): I10 - Essential (primary) hypertension (6) Hyperlipidemia: Impression: On Crestor at home, has been started on atorvastatin here. Qualifiers: Hyperlipidemia type: unspecified Qualified Code(s): E78.5 - Hyperlipidemia, unspecified (7) Hyperkalemia: Impression: Normalized I will check BMP in the AM. There is some hyperkalemia associated with ARB use. Laboratory Tests 10/18/24 10/19/24 10/20/24 06:07 05:20 05:32 Potassium 5.0 H 4.0 4.5 10/21/24 05:41 Potassium 4.1 (8) Hyponatremia: Impression: Mild and asymptomatic. Laboratory Tests 10/18/24 10/19/24 10/20/24 06:07 05:20 05:32 Sodium 133 L 135 133 L I have spent 50 minutes in the care of this patient today. This includes time [id number], review and ordering of diagnostic imaging and laboratory studies. Monitoring the patient's signs symptoms, evaluation of medication effectiveness and patient's response to treatment.
[2024-10-21 08:08] LABS: RPR Non Reactive (Non Reactive)
[2024-10-21] MEDS: LOSARTAN 50 MG TABLET PO SCH (08:38)
[2024-10-22 03:22] LABS: RAPID STREP SCREEN Negative (Negative)
[2024-10-22 04:06] LABS: INFLUENZA A- RESP PCR PANEL NOT DETECTED; INFLUENZA B - RESP PCR PANEL NOT DETECTED; RSV- RESP PCR PANEL NOT DETECTED; SARS-CoV-2 -RESP PCR PANEL NOT DETECTED
[2024-10-22 04:50] LABS: BASOPHILS # (AUTO) 0.1 10^3/uL (0.0-0.1); BASOPHILS % (AUTO) 0.4 %; EOSINOPHILS # (AUTO) 0.4 10^3/uL (0.0-0.7); HCT - HEMATOCRIT 36.1 % (37.0-47.0); HGB - HEMOGLOBIN 11.6 g/dL (12.0-16.0); LYMPHOCYTES # (AUTO) 2.6 10^3/uL (1.5-3.5); LYMPHOCYTES % (AUTO) 22.1 %; MEAN CORPUSCULAR HEMOGLOBIN 29.7 pg (27.0-31.0); MEAN CORPUSCULAR HGB CONC 32.1 g/dL (32.0-36.0); MEAN CORPUSCULAR VOLUME 92.3 fL (81.0-99.0); MEAN PLATELET VOLUME 8.7 fL (7.9-10.8); MONOCYTES # (AUTO) 1.1 10^3/uL (0.0-1.0); MONOCYTES % (AUTO) 9.1 %; NEUTROPHILS # (AUTO) 7.5 10^3/uL (1.5-6.6); PLT - PLATELET COUNT 260 10^3/uL (130-450); RED BLOOD COUNT 3.91 10^6/uL (4.20-5.40); RED CELL DISTRIBUTION WIDTH 13.5 % (12.0-15.0); WHITE BLOOD COUNT 11.5 x10^3/uL (4.8-10.8)
[2024-10-22 05:06] LABS: CALCIUM 9.5 mg/dL (8.5-10.3); CREATININE 1.3 mg/dL (0.6-1.3); POTASSIUM 4.5 mmol/L (3.5-4.5)
--- NOTE | 2024-10-22 07:51 | PROVIDER PROGRESS NOTE ---
Subjective Prog Note Date Prog Note Date: 10/22/24 Prog Note Time: 07:38 Subjective Pt reports feeling: No change Subjective: Overnight has some complaints of sore throat and bodyaches all over feeling rundown. Apparently the week before she came in she had had a viral syndrome. She has been on a statin for some time, rosuvastatin at home. We have switched her to atorvastatin. She is unsure if the body aches are related to the statin. She has never had bodyaches before with statin administration. She is asking if her daughter can bring in her macular degeneration meds. She was assured that this is possible and encouraged. She has not been running any fever she has not had any chills. She has occasional cough that is nonproductive. Current Medications Current Medications Current Medications: Current Medications Generic Name Dose Route Start Last Admin Trade Name Freq PRN Reason Stop Dose Admin Acetaminophen 650 mg 10/17/24 23:31 10/20/24 19:18 Acetaminophen 325 Mg Tablet PO 650 mg Q4HR PRN Administration Pain 1 to 4, or Fever Aspirin 325 mg 10/18/24 09:00 10/21/24 08:37 Aspirin Ec 325 Mg Tablet PO 325 mg DAILY KAREN Administration Atorvastatin Calcium 40 mg 10/18/24 09:00 10/21/24 08:38 Atorvastatin 40 Mg Tablet PO 40 mg DAILY KAREN Administration Bupropion HCl 150 mg 10/18/24 09:00 10/21/24 08:38 Bupropion Xl 150 Mg Tablet PO 150 mg DAILY KAREN Administration Clopidogrel Bisulfate 75 mg 10/19/24 09:00 10/21/24 08:38 Clopidogrel 75 Mg Tablet PO 75 mg DAILY KAREN Administration Cyclobenzaprine HCl 10 mg 10/18/24 12:45 10/19/24 18:43 Cyclobenzaprine 10 Mg Tablet PO 10 mg TID PRN Administration Spasms Escitalopram Oxalate 20 mg 10/18/24 09:00 10/21/24 08:38 Escitalopram 10 Mg Tablet PO 20 mg DAILY KAREN Administration Glimepiride 3 mg 10/18/24 08:00 10/21/24 08:36 Glimepiride 2 Mg Tablet PO 3 mg 0800 KAREN Administration Heparin Sodium (Porcine) 5,000 unit 10/18/24 09:00 10/21/24 20:52 Heparin 5,000 Unit/Ml Vial SUBQ 5,000 unit BID KAREN Administration Hydralazine HCl 5 mg 10/18/24 05:44 10/18/24 23:48 Hydralazine Inj 20 Mg/Ml Vial IVP 5 mg Q4H PRN Administration Hypertension Hydromorphone HCl 0.5 mg 10/18/24 17:20 Hydromorphone 0.5 Mg/0.5 Ml Syringe IVP Q2H PRN Severe Pain (Level 7-10) Insulin Glargine-yfgn 10 unit 10/20/24 09:00 10/21/24 08:36 Insulin Glargine-Yfgn 300 Unit/3 Ml Pen SUBQ 10 unit DAILY KAREN Administration Insulin Human Lispro 1 - 5 unit 10/19/24 17:00 10/22/24 07:36 Insulin Lispro 300 Unit/3 Ml Pen SUBQ Not Given 0800,1200,1700,2100 [facility] Protocol Ketorolac Tromethamine 15 mg 10/18/24 17:36 10/21/24 12:20 Ketorolac 15 Mg/Ml Vial IVP 10/23/24 17:35 15 mg Q6HR PRN Administration Severe Pain (Level 7-10) Labetalol HCl 10 mg 10/18/24 03:39 10/18/24 04:01 Labetalol 20 Mg/4 Ml Syringe IVP 10 mg Q6H PRN Administration hypertension Lidocaine 1 patch 10/17/24 23:31 Lidocaine Patch 4% TOP DAILY PRN Neck pain Losartan Potassium 50 mg 10/21/24 09:00 10/21/24 08:38 Losartan 50 Mg Tablet PO 50 mg DAILY KAREN Administration Multivitamins/Minerals 1 tab 10/20/24 08:00 10/21/24 08:38 Multivitamin W/Minerals Tablet PO 1 tab DAILYWM KAREN Administration Ondansetron HCl 4 mg 10/17/24 23:31 10/18/24 05:03 Ondansetron 4 Mg/2 Ml Vial IVP 4 mg Q6HR PRN Administration Nausea / Vomiting Pantoprazole Sodium 40 mg 10/18/24 09:00 10/21/24 20:52 Pantoprazole 40 Mg Tablet PO 40 mg BID KAREN Administration Nebivolol 5 Mg 1 each 10/18/24 09:00 10/21/24 08:38 Tablet PO 1 each DAILY KAREN Administration Sodium Chloride 10 ml 10/17/24 23:31 Sodium Chloride Flush 0.9% 10 Ml Syringe IVP PRN PRN NEEDED PER PROVIDER ORDERS Sodium Chloride 10 ml 10/18/24 01:00 10/21/24 23:58 Sodium Chloride Flush 0.9% 10 Ml Syringe IVP 10 ml 0100,0900,1700 KAREN Administration Thiamine HCl 100 mg 10/19/24 09:00 10/21/24 08:38 Thiamine 100 Mg Tablet PO 100 mg DAILY KAREN Administration Objective Vital Signs/Intake & Output Reviewed Vital Signs: Yes Vital Signs: Vital Signs x48h Temp Pulse Resp BP Pulse Ox 10/21/24 23:55 36.7 C 72 20 148/84 H 98 Intake & Output: Intake & Output 10/19/24 10/20/24 10/21/24 10/22/24 23:59 23:59 23:59 23:59 Intake Total 2510 / 2510 2934.2 / 2934.2 1200 / 1200 150 / 150 Output Total 1725 / 1725 1000 / 1000 1900 / 1900 1200 / 1200 Balance 785 / 785 1934.2 / 1934.2 -700 / -700 -1050 / -1050 Objective General Appearance: positive No acute distress and Alert Eyes Bilateral: positive Normal inspection and PERRL Lab Results 10/22/24 04:37 10/22/24 04:37 Other Labs: Lab Results x24hrs 10/22/24 10/22/24 10/22/24 Range/Units 07:32 04:37 02:45 WBC 11.5 H (4.8-10.8) x10^3/uL RBC 3.91 L (4.20-5.40) 10^6/uL Hgb 11.6 L (12.0-16.0) g/dL Hct 36.1 L (37.0-47.0) % MCV 92.3 (81.0-99.0) fL MCH 29.7 (27.0-31.0) pg MCHC 32.1 (32.0-36.0) g/dL RDW 13.5 (12.0-15.0) % Plt Count 260 (130-450) 10^3/uL MPV 8.7 (7.9-10.8) fL Neut # (Auto) 7.5 H (1.5-6.6) 10^3/uL Lymph # (Auto) 2.6 (1.5-3.5) 10^3/uL Maries # (Auto) 1.1 H (0.0-1.0) 10^3/uL Eos # (Auto) 0.4 (0.0-0.7) 10^3/uL Baso # (Auto) 0.1 (0.0-0.1) 10^3/uL Absolute Nucleated RBC 0.00 x10^3/uL Nucleated RBC % 0.0 /100WBC Sodium 138 (135-145) mmol/L Potassium 4.5 (3.5-4.5) mmol/L Chloride 107 (101-111) mmol/L Carbon Dioxide 24 (21-32) mmol/L Anion Gap 7.0 (6-13) BUN 37 H (6-20) mg/dL Creatinine 1.3 (0.6-1.3) mg/dL Estimated GFR (MDRD) 39 L (>89) Glucose 118 H (74-104) mg/dL POC Whole Bld Glucose 114 (70-100) mg/dL Calcium 9.5 (8.5-10.3) mg/dL Nasal Influenza B PCR NOT DETECTED Nasal Influenza A PCR NOT DETECTED Nasal RSV (PCR) NOT DETECTED Nasal SARS-CoV-2 (PCR) NOT DETECTED RPR (Non Reactive) Group A Strep Rapid Negative (Negative) 10/21/24 10/21/24 10/21/24 Range/Units 20:40 16:35 11:13 WBC (4.8-10.8) x10^3/uL RBC (4.20-5.40) 10^6/uL Hgb (12.0-16.0) g/dL Hct (37.0-47.0) % MCV (81.0-99.0) fL MCH (27.0-31.0) pg MCHC (32.0-36.0) g/dL RDW (12.0-15.0) % Plt Count (130-450) 10^3/uL MPV (7.9-10.8) fL Neut # (Auto) (1.5-6.6) 10^3/uL Lymph # (Auto) (1.5-3.5) 10^3/uL Maries # (Auto) (0.0-1.0) 10^3/uL Eos # (Auto) (0.0-0.7) 10^3/uL Baso # (Auto) (0.0-0.1) 10^3/uL Absolute Nucleated RBC x10^3/uL Nucleated RBC % /100WBC Sodium (135-145) mmol/L Potassium (3.5-4.5) mmol/L Chloride (101-111) mmol/L Carbon Dioxide (21-32) mmol/L Anion Gap (6-13) BUN (6-20) mg/dL Creatinine (0.6-1.3) mg/dL Estimated GFR (MDRD) (>89) Glucose (74-104) mg/dL POC Whole Bld Glucose 209 191 190 (70-100) mg/dL Calcium (8.5-10.3) mg/dL Nasal Influenza B PCR Nasal Influenza A PCR Nasal RSV (PCR) Nasal SARS-CoV-2 (PCR) RPR (Non Reactive) Group A Strep Rapid (Negative) 10/20/24 Range/Units 05:32 WBC (4.8-10.8) x10^3/uL RBC (4.20-5.40) 10^6/uL Hgb (12.0-16.0) g/dL Hct (37.0-47.0) % MCV (81.0-99.0) fL MCH (27.0-31.0) pg MCHC (32.0-36.0) g/dL RDW (12.0-15.0) % Plt Count (130-450) 10^3/uL MPV (7.9-10.8) fL Neut # (Auto) (1.5-6.6) 10^3/uL Lymph # (Auto) (1.5-3.5) 10^3/uL Maries # (Auto) (0.0-1.0) 10^3/uL Eos # (Auto) (0.0-0.7) 10^3/uL Baso # (Auto) (0.0-0.1) 10^3/uL Absolute Nucleated RBC x10^3/uL Nucleated RBC % /100WBC Sodium (135-145) mmol/L Potassium (3.5-4.5) mmol/L Chloride (101-111) mmol/L Carbon Dioxide (21-32) mmol/L Anion Gap (6-13) BUN (6-20) mg/dL Creatinine (0.6-1.3) mg/dL Estimated GFR (MDRD) (>89) Glucose (74-104) mg/dL POC Whole Bld Glucose (70-100) mg/dL Calcium (8.5-10.3) mg/dL Nasal Influenza B PCR Nasal Influenza A PCR Nasal RSV (PCR) Nasal SARS-CoV-2 (PCR) RPR Non Reactive (Non Reactive) Group A Strep Rapid (Negative) Assessment/Plan Problem List (1) Acute CVA (cerebrovascular accident): Impression: 10/22:Today she is alert and oriented x 3. This is a new occurrence.Records have been transferred over to [facility] inpatient rehab facility in [place]. The way I understand that we are pending insurance authorization for that rehab stay. I consulted with neurology at outside hospital yesterday who endorsed our current plan of care. He feels that the patient would be an excellent rehab candidate and agrees that this may be a stroke which is MRI negative. She is medically clear for discharge today. This is avoidable day #1. 10/21:Continues to have improvements in her mental status and activity tolerance. I have no PT/OT services available today. She will get up and walk with nurses. We are working on placement and she is being considered by [facility] inpatient rehab in [place]. They have requested that we discuss her case with a neurologist. This is because her imaging has actually been negative for stroke. I therefore called Dr. Zarate at [facility] neurology. He is the on-call neurologist today. I discussed her case thoroughly. He feels that it is still quite likely that she had a stroke. There is a such thing as MRI negative strokes. Occasionally there is a stroke that is not seen on the MRI because of the size of it. His recommendation is that she remain on dual antiplatelet therapy for total of 3 weeks. She should then remain on aspirin as antiplatelet therapy indefinitely. He feels that if the therapist agree that she should be going to inpatient rehab that is an appropriate disposition. 10/20: Continuing secondary stroke prevention with aspirin and statin. Her swallowing is improving today. I think that her swallowing is much affected by her fatigue level. She is eager to transition to the next phase of care. Please see discussion of blood pressure management below. MRI of the brain with and without contrast was somewhat limited image quality but no tumor seen. Additionally no CVA is seen. I think clinically this patient has had a stroke. 10/19: Secondary stroke prevention with aspirin, plavix and statin. with right sided neglect and aphasia. Her swallowing ability is variable. She will need speech therapy in the non acute setting due to her aphasia. CT head did not show any bleed. Echocardiogram within normal limits, no concerns. Has been seen by PT and OT and recommendation is for IRF. Permissive HTN for 48 hours. up to SBP 200. . She is getting hydralazine q4h PRN Selected Entries 10/19/24 00:14 10/19/24 00:30 10/19/24 00:46 Blood Pressure Blood Pressure [Left Brachial artery] 167/96 H 180/83 H 174/96 H 10/19/24 01:03 10/19/24 01:07 10/19/24 05:00 Blood Pressure 177/91 H Blood Pressure [Left Brachial artery] 177/91 H 165/99 H 10/19/24 08:49 Blood Pressure Blood Pressure [Left Brachial artery] 152/91 H Home meds for HTN have been resumed. The MRI images are of poor quality, but there is not evidence of CVA seen. Therefore, I am adding on to my workup. I wll check TSH,(2.87- this is normal) I am giving her Vit B supplementation. I am checking an ammonia level (also returned as normal-21.9) Additionally I am ordering an MRI of the brain with and without gadolinium. Although the image quality is poor we do not see a CVA on the non contrast scan. Mental status has waxed and waned over the course of the day but she was able to get up out of bed and work with PT. She is getting premedication for contrast allergy prior to MRI of the brain with and without contrast this afternoon/evening. Family is eager to have diagnostic imaging complete. MRI is unable to take the patient until 1700. Discussed CODE STATUS with her family again today. Her daughter who is a retired RN and her surrogate decision maker (April Pappas) affirms that this patient would like to be full code at this time. (2) Neutrophilic leukocytosis: Impression: 2 Laboratory Tests 10/20/24 10/21/24 10/22/24 05:32 05:41 04:37 WBC 13.4 H 14.1 H 11.5 H No fevers or other indicators of infection or sepsis. She has had ongoing leukocytosis of undetermined origin for some time. Her urinalysis was unremarkable. Now she is complaining of this malaise body aches sore throat and occasional dry cough. Her viral panel is negative for influenza A, B, RSV, COVID. It is possible that her leukocytosis is related to the symptoms. (3) Carotid stenosis: Impression: CTA of the head and neck reveals bilateral ICA stenosis of 50-69%. This indicates the need for vascular surgery consultation in consideration of carotid enarterectomy/stenting for secondary stroke prevention. This can be completed in the outpatient environment. After my discussion with neurology, I am recommending Plavix for duration of 21 days and then as recommended by vascular surgery. This should be an outpatient consultation. Qualifiers: Laterality: bilateral Qualified Code(s): I65.23 - Occlusion and stenosis of bilateral carotid arteries (4) Type 2 diabetes mellitus: Impression: 02/18/24 reading was 5.4%. Laboratory Tests 10/19/24 05:20 Hemoglobin A1c % 7.5 H Selected Entries 10/21/24 12:17 10/21/24 16:55 10/21/24 20:52 Result (mg/dL) 190 191 209 10/22/24 07:36 Result (mg/dL) 114 Home diabetic regimen is glimepiride 3 mg daily. She is not on metformin. While she is here we have placed her on sliding scale insulin. added Glargine insulin for better blood sugar control. She needs better control of her diabetes. The glargine seems to be effective. Her morning blood sugar is 114. We will continue to monitor her blood sugars and adjust insulin regimen as indicated. She daughter, Valeri is not in favor of metformin. Qualifiers: Diabetes mellitus complication status: with hyperglycemia Diabetes mellitus professional application designer insulin use: without correction use Qualified Code(s): E11.65 - Type 2 diabetes mellitus with hyperglycemia (5) Hypertension: Impression: permissive HTN after CVA for 48 hours. Home meds are resumed. Cozaar 25 mg daily. I have increased this to 50 mg daily as I think she needs slightly better control of her blood pressure. This has been adequately effective. Selected Entries 10/21/24 00:00 10/21/24 07:38 10/21/24 16:24 Blood Pressure [Left Brachial artery] 136/76 H 126/91 H 134/67 H Blood Pressure [Right Brachial artery] 10/21/24 23:55 Blood Pressure [Left Brachial artery] Blood Pressure [Right Brachial artery] 148/84 H Qualifiers: Hypertension type: primary hypertension Qualified Code(s): I10 - Essential (primary) hypertension (6) Hyperlipidemia: Impression: On Crestor at home, has been started on atorvastatin here. I am concerned about her body aches. I wonder if this is due to statin. I will see if these resolve as her illness progresses or if they persist. Qualifiers: Hyperlipidemia type: unspecified Qualified Code(s): E78.5 - Hyperlipidemia, unspecified (7) Hyperkalemia: Impression: Normalized Daily BMP. There is some hyperkalemia associated with ARB use. Laboratory Tests 10/18/24 10/19/24 10/20/24 06:07 05:20 05:32 Potassium 5.0 H 4.0 4.5 10/21/24 05:41 Potassium 4.1 Laboratory Tests 10/22/24 04:37 Potassium 4.5 (8) Hyponatremia: Impression: Mild and asymptomatic. Laboratory Tests 10/18/24 10/19/24 10/20/24 06:07 05:20 05:32 Sodium 133 L 135 133 L I have spent 35 minutes in the care of this patient today. This includes time [id number], review and ordering of diagnostic imaging and laboratory studies. Monitoring the patient's signs symptoms, evaluation of medication effectiveness and patient's response to treatment.
[2024-10-22] MEDS ORDERED: guaiFENesin/DEXTROMETHORPHAN 10 ML UDC PO PRN (11:59)
[2024-10-22] MEDS: busPIRone 5 MG TABLET PO SCH (20:31)
[2024-10-22] MEDS: MAGIC MOUTHWASH 120 ML BOTTLE PO PRN (21:34)
[2024-10-23] MEDS: SODIUM CHLORIDE FLUSH 0.9% 10 ML SYRINGE IVP PRN (06:00)
--- NOTE | 2024-10-23 07:06 | PROVIDER PROGRESS NOTE ---
Subjective Prog Note Date Prog Note Date: 10/23/24 Prog Note Time: 07:06 Subjective Pt reports feeling: No change Subjective: She had a headache overnight which is improving with Toradol. She is anxious and worried about going to rehab. She is also eager to hear about what the next steps are. Current Medications Current Medications Current Medications: Current Medications Generic Name Dose Route Start Last Admin Trade Name Freq PRN Reason Stop Dose Admin Acetaminophen 650 mg 10/17/24 23:31 10/22/24 20:34 Acetaminophen 325 Mg Tablet PO 650 mg Q4HR PRN Administration Pain 1 to 4, or Fever Aspirin 325 mg 10/18/24 09:00 10/22/24 08:24 Aspirin Ec 325 Mg Tablet PO 325 mg DAILY KAREN Administration Atorvastatin Calcium 40 mg 10/18/24 09:00 10/22/24 08:25 Atorvastatin 40 Mg Tablet PO 40 mg DAILY KAREN Administration Bupropion HCl 150 mg 10/18/24 09:00 10/22/24 08:25 Bupropion Xl 150 Mg Tablet PO 150 mg DAILY KAREN Administration Buspirone HCl 5 mg 10/22/24 21:00 10/22/24 20:31 Buspirone 5 Mg Tablet PO 5 mg BID KAREN Administration Clopidogrel Bisulfate 75 mg 10/19/24 09:00 10/22/24 08:24 Clopidogrel 75 Mg Tablet PO 75 mg DAILY KAREN Administration Cyclobenzaprine HCl 10 mg 10/18/24 12:45 10/19/24 18:43 Cyclobenzaprine 10 Mg Tablet PO 10 mg TID PRN Administration Spasms Escitalopram Oxalate 20 mg 10/18/24 09:00 10/22/24 08:24 Escitalopram 10 Mg Tablet PO 20 mg DAILY KAREN Administration Glimepiride 3 mg 10/18/24 08:00 10/22/24 07:54 Glimepiride 2 Mg Tablet PO 3 mg 0800 KAREN Administration Guaifenesin 10 ml 10/22/24 11:59 Guaifenesin/Dextromethorphan 10 Ml Udc PO Q6HR PRN Cough Heparin Sodium (Porcine) 5,000 unit 10/18/24 09:00 10/22/24 20:31 Heparin 5,000 Unit/Ml Vial SUBQ 5,000 unit BID KAREN Administration Hydromorphone HCl 0.5 mg 10/18/24 17:20 Hydromorphone 0.5 Mg/0.5 Ml Syringe IVP Q2H PRN Severe Pain (Level 7-10) Insulin Glargine-yfgn 10 unit 10/20/24 09:00 10/22/24 08:23 Insulin Glargine-Yfgn 300 Unit/3 Ml Pen SUBQ 10 unit DAILY KAREN Administration Insulin Human Lispro 1 - 5 unit 10/19/24 17:00 10/22/24 20:33 Insulin Lispro 300 Unit/3 Ml Pen SUBQ 2 unit 0800,1200,1700,2100 KAREN Administration Protocol Ketorolac Tromethamine 15 mg 10/18/24 17:36 10/23/24 05:59 Ketorolac 15 Mg/Ml Vial IVP 10/23/24 17:35 15 mg Q6HR PRN Administration Severe Pain (Level 7-10) Labetalol HCl 10 mg 10/18/24 03:39 10/18/24 04:01 Labetalol 20 Mg/4 Ml Syringe IVP 10 mg Q6H PRN Administration hypertension Lidocaine 1 patch 10/17/24 23:31 Lidocaine Patch 4% TOP DAILY PRN Neck pain Losartan Potassium 50 mg 10/21/24 09:00 10/22/24 08:25 Losartan 50 Mg Tablet PO 50 mg DAILY KAREN Administration Multi-Ingredient Mouthwash/Gargle 30 ml 10/22/24 15:06 10/22/24 21:34 Magic Mouthwash 120 Ml Bottle PO 30 ml Q4H PRN Administration Mouth Sore Pain Multivitamins/Minerals 1 tab 10/20/24 08:00 10/22/24 07:53 Multivitamin W/Minerals Tablet PO 1 tab DAILYWM KAREN Administration Ondansetron HCl 4 mg 10/17/24 23:31 10/18/24 05:03 Ondansetron 4 Mg/2 Ml Vial IVP 4 mg Q6HR PRN Administration Nausea / Vomiting Pantoprazole Sodium 40 mg 10/18/24 09:00 10/22/24 20:33 Pantoprazole 40 Mg Tablet PO 40 mg BID KAREN Administration Nebivolol 5 Mg 1 each 10/18/24 09:00 10/22/24 08:24 Tablet PO 1 each DAILY KAREN Administration Sodium Chloride 10 ml 10/17/24 23:31 10/23/24 06:00 Sodium Chloride Flush 0.9% 10 Ml Syringe IVP 10 ml PRN PRN Administration NEEDED PER PROVIDER ORDERS Sodium Chloride 10 ml 10/18/24 01:00 10/23/24 01:10 Sodium Chloride Flush 0.9% 10 Ml Syringe IVP 10 ml 0100,0900,1700 KAREN Administration Thiamine HCl 100 mg 10/19/24 09:00 10/22/24 08:24 Thiamine 100 Mg Tablet PO 100 mg DAILY KAREN Administration Objective Vital Signs/Intake & Output Reviewed Vital Signs: Yes Vital Signs: Vital Signs x48h Temp Pulse Resp BP Pulse Ox 10/23/24 01:00 36.5 C 70 18 157/97 H 96 Intake & Output: Intake & Output 10/20/24 10/21/24 10/22/24 10/23/24 23:59 23:59 23:59 23:59 Intake Total 2934.2 / 2934.2 1200 / 1200 830 / 830 150 / 150 Output Total 1000 / 1000 1900 / 1900 3225 / 3225 1000 / 1000 Balance 1934.2 / 1934.2 -700 / -700 -2395 / -2395 -850 / -850 Objective General Appearance: positive No acute distress and Alert Eyes Bilateral: positive Normal inspection and PERRL ENT: positive ENT inspection nml and Oral lesions (right side of lower lip, inner aspect, 7mm apthous ulceration) Neck: positive Nml inspection Respiratory: positive No respiratory distress and Breath sounds nml Cardiovascular: positive Regular rate & rhythm Abdomen: positive No distention Skin: positive Color nml Extremities: positive No pedal edema Neurologic/Psychiatric: positive Oriented x3 Lab Results 10/23/24 07:12 10/23/24 07:12 Other Labs: Lab Results x24hrs 10/22/24 10/22/24 10/22/24 Range/Units 20:22 16:50 11:04 POC Whole Bld Glucose 205 137 210 (70-100) mg/dL 10/22/24 Range/Units 07:32 POC Whole Bld Glucose 114 (70-100) mg/dL Assessment/Plan Problem List (1) Acute CVA (cerebrovascular accident): Impression: 10/23: headache overnight without mental status changes. She is alert and oriented this AM. She and I had a complex conversation this morning regarding her daughters and how she feels about their adult lives and the way she mothered them. She has some anxiety regarding the changes that have happened as a result of this hopsital stay, and what changes are happening in the near future. We are awaiting acceptance and authorization from [facility]. She is stable. Today is her second avoidable day due to awaiting rehab placement. 10/22:Today she is alert and oriented x 3. This is a new occurrence.Records have been transferred over to [facility] inpatient rehab facility in [place]. The way I understand that we are pending insurance authorization for that rehab stay. I consulted with neurology at outside hospital yesterday who endorsed our current plan of care. He feels that the patient would be an excellent rehab candidate and agrees that this may be a stroke which is MRI negative. She is medically clear for discharge today. This is avoidable day #1. 10/21:Continues to have improvements in her mental status and activity tolerance. I have no PT/OT services available today. She will get up and walk with nurses. We are working on placement and she is being considered by [facility] inpatient rehab in [place]. They have requested that we discuss her case with a neurologist. This is because her imaging has actually been negative for stroke. I therefore called Dr. Zarate at [facility] neurology. He is the on-call neurologist today. I discussed her case thoroughly. He feels that it is still quite likely that she had a stroke. There is a such thing as MRI negative strokes. Occasionally there is a stroke that is not seen on the MRI because of the size of it. His recommendation is that she remain on dual antiplatelet therapy for total of 3 weeks. She should then remain on aspirin as antiplatelet therapy indefinitely. He feels that if the therapist agree that she should be going to inpatient rehab that is an appropriate disposition. 10/20: Continuing secondary stroke prevention with aspirin and statin. Her swallowing is improving today. I think that her swallowing is much affected by her fatigue level. She is eager to transition to the next phase of care. Please see discussion of blood pressure management below. MRI of the brain with and without contrast was somewhat limited image quality but no tumor seen. Additionally no CVA is seen. I think clinically this patient has had a stroke. 10/19: Secondary stroke prevention with aspirin, plavix and statin. with right sided neglect and aphasia. Her swallowing ability is variable. She will need speech therapy in the non acute setting due to her aphasia. CT head did not show any bleed. Echocardiogram within normal limits, no concerns. Has been seen by PT and OT and recommendation is for IRF. Permissive HTN for 48 hours. up to SBP 200. . She is getting hydralazine q4h PRN Selected Entries 10/19/24 00:14 10/19/24 00:30 10/19/24 00:46 Blood Pressure Blood Pressure [Left Brachial artery] 167/96 H 180/83 H 174/96 H 10/19/24 01:03 10/19/24 01:07 10/19/24 05:00 Blood Pressure 177/91 H Blood Pressure [Left Brachial artery] 177/91 H 165/99 H 10/19/24 08:49 Blood Pressure Blood Pressure [Left Brachial artery] 152/91 H Home meds for HTN have been resumed. The MRI images are of poor quality, but there is not evidence of CVA seen. Therefore, I am adding on to my workup. I wll check TSH,(2.87- this is normal) I am giving her Vit B supplementation. I am checking an ammonia level (also returned as normal-21.9) Additionally I am ordering an MRI of the brain with and without gadolinium. Although the image quality is poor we do not see a CVA on the non contrast scan. Mental status has waxed and waned over the course of the day but she was able to get up out of bed and work with PT. She is getting premedication for contrast allergy prior to MRI of the brain with and without contrast this afternoon/evening. Family is eager to have diagnostic imaging complete. MRI is unable to take the patient until 1700. Discussed CODE STATUS with her family again today. Her daughter who is a retired RN and her surrogate decision maker (April Pappas) affirms that this patient would like to be full code at this time. (2) Neutrophilic leukocytosis: Impression: 2 Laboratory Tests 10/21/24 10/22/24 10/23/24 05:41 04:37 07:12 WBC 14.1 H 11.5 H 10.3 No fevers or other indicators of infection or sepsis. She has had ongoing leukocytosis of undetermined origin for some time. Her urinalysis was unremarkable. Now she is complaining of this malaise body aches sore throat and occasional dry cough. Her viral panel is negative for influenza A, B, RSV, COVID. It is possible that her leukocytosis is related to the symptoms. She developed an apthous ulcer yesterday, which I am treating symptomatically. Check CBC in AM. WBC elevation is clearing. (3) Carotid stenosis: Impression: CTA of the head and neck reveals bilateral ICA stenosis of 50-69%. This indicates the need for vascular surgery consultation in consideration of carotid enarterectomy/stenting for secondary stroke prevention. This can be completed in the outpatient environment. After my discussion with neurology, I am recommending Plavix for duration of 21 days and then as recommended by vascular surgery. This should be an outpatient consultation. Qualifiers: Laterality: bilateral Qualified Code(s): I65.23 - Occlusion and stenosis of bilateral carotid arteries (4) Dysuria: Impression: UA was negative 10/23. pyridium as needed for symptoms (5) Type 2 diabetes mellitus: Impression: 02/18/24 reading was 5.4%. Laboratory Tests 10/19/24 05:20 Hemoglobin A1c % 7.5 H Selected Entries 10/22/24 20:33 10/23/24 08:00 10/23/24 08:13 Result (mg/dL) 205 105 105 10/23/24 08:14 Result (mg/dL) 105 Home diabetic regimen is glimepiride 3 mg daily. She is not on metformin. While she is here we have placed her on sliding scale insulin. added Glargine insulin for better blood sugar control. She needs better control of her diabetes. The glargine seems to be effective. . We will continue to monitor her blood sugars and adjust insulin regimen as indicated. She daughter, Valeri is not in favor of metformin. Qualifiers: Diabetes mellitus complication status: with hyperglycemia Diabetes mellitus termite treater insulin use: without longterm use Qualified Code(s): E11.65 - Type 2 diabetes mellitus with hyperglycemia (6) Hypertension: Impression: permissive HTN after CVA for 48 hours. Home meds are resumed. Cozaar 25 mg daily. I have increased this to 50 mg daily as I think she needs slightly better control of her blood pressure. This has been adequately effective. Selected Entries 10/22/24 20:58 10/23/24 01:00 10/23/24 08:25 Blood Pressure [Left Brachial artery] 157/97 H Blood Pressure [Right Brachial artery] 144/68 H 167/74 H Qualifiers: Hypertension type: primary hypertension Qualified Code(s): I10 - Essential (primary) hypertension (7) Hyperlipidemia: Impression: On Crestor at home, has been started on atorvastatin here. I am concerned about her body aches. I wonder if this is due to statin. I will see if these resolve as her illness progresses or if they persist. Qualifiers: Hyperlipidemia type: unspecified Qualified Code(s): E78.5 - Hyperlipidemia, unspecified (8) Hyperkalemia: Impression: Normalized Daily BMP. There is some hyperkalemia associated with ARB use. Laboratory Tests 10/21/24 10/22/24 10/23/24 05:41 04:37 07:12 Potassium 4.1 4.5 4.4 (9) Hyponatremia: Impression: resolved. Laboratory Tests 10/22/24 10/23/24 04:37 07:12 Sodium 138 138 continue to check BMP in the AM. I have spent 30 minutes in the care of this patient today. This includes time [id number], review and ordering of diagnostic imaging and laboratory studies. Monitoring the patient's signs symptoms, evaluation of medication effectiveness and patient's response to treatment.
[2024-10-23 07:36] LABS: BASOPHILS # (AUTO) 0.1 10^3/uL (0.0-0.1); BASOPHILS % (AUTO) 0.6 %; EOSINOPHILS # (AUTO) 0.4 10^3/uL (0.0-0.7); HCT - HEMATOCRIT 36.8 % (37.0-47.0); HGB - HEMOGLOBIN 11.9 g/dL (12.0-16.0); LYMPHOCYTES % (AUTO) 19.2 %; MEAN CORPUSCULAR HGB CONC 32.3 g/dL (32.0-36.0); MEAN CORPUSCULAR VOLUME 92.7 fL (81.0-99.0); MEAN PLATELET VOLUME 8.8 fL (7.9-10.8); MONOCYTES # (AUTO) 0.9 10^3/uL (0.0-1.0); MONOCYTES % (AUTO) 8.9 %; NEUTROPHILS # (AUTO) 6.9 10^3/uL (1.5-6.6); NEUTROPHILS % (AUTO) 66.6 %; PLT - PLATELET COUNT 283 10^3/uL (130-450); RED BLOOD COUNT 3.97 10^6/uL (4.20-5.40); RED CELL DISTRIBUTION WIDTH 13.6 % (12.0-15.0); WHITE BLOOD COUNT 10.3 x10^3/uL (4.8-10.8)
[2024-10-23 07:46] LABS: CALCIUM 9.4 mg/dL (8.5-10.3); CREATININE 1.2 mg/dL (0.6-1.3); POTASSIUM 4.4 mmol/L (3.5-4.5)
--- NOTE | 2024-10-23 11:21 | Discharge Summary ---
"Discharge Summary Admit Date: 10/17/24 Primary Care Provider: viet Flores to be Carlos. Code Status: Attempt Resuscitation DIAGNOSES Discharge Diagnoses with Status of Each Condition: Acute CVA, present on admission. Leukocytosis, resolved Carotid stenosis, present on admission ongoing. Diabetes mellitus, controlled with intermittent hyperglycemia Hypertension, controlled Hyperlipidemia, controlled Hyperkalemia, resolved. Hyponatremia, resolved. HPI History of Present Illness: Mrs. Dash is a 79yo F with a history of hypertension and diabetes. She presented to the ED with acute confusion that started the day on presentation. The exact time was uncertain, as her could not specify when he noticed the changes. The patient's daughter saw her around 7pm and noticed that she was confused and speaking jibberish. In the ED, evaluation noted that patient had expressive aphasia, it appeared as if she understood question,but would have difficulty finding words or would respond with a word salad. She also exhibited right sided neglect. She had Full range of motion of her upper and lower extremities and did not have any visual field deficits or gaze palsy upon arrival to the Ed. Workup including CT and CTA were negative for acute abnormalities. Teleneurology did not feel she was a tPA candidate due to the onset of time being unknown. After my discussion with the ED physician and the patient, I will admit the patient for further evaluation of her persistent symptoms and complete her evaluation for an acute stroke. Patient was seen at bedside, I discussed plan of care and goal of admission with patient adn her daughter at bedside. They agreed to being admitted for further stroke evaluation. I completed this visit utilizing tele-health tools including phone and live video. Informed consent was obtained from the patient and family to proceed with this telemedicine visit. CONSULTS | PROCEDURES Consultations: Dr Zarate, [facility] neurology, 10/21/24. Procedures: Head CT: No acute intracranial hemorrhage CTA of the head neck: No large vessel occlusion. At least 50 to 69% stenosis of the bilateral proximal internal carotid arteries. 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 Brain MRI without contrast: Limited examination due to motion artifact without recent infarct. Volume loss and small vessel ischemic disease. Mild sinus disease Brain MRI with contrast: Within the limits of motion artifact no acute stroke intracranial mass effect or abnormal enhancement. HOSPITAL COURSE Hospital Course: (1) Acute CVA (cerebrovascular accident): Impression: 10/23: headache overnight without mental status changes. She is alert and oriented this AM. She and I had a complex conversation this morning regarding her daughters and how she feels about their adult lives and the way she mothered them. She has some anxiety regarding the changes that have happened as a result of this hopsital stay, and what changes are happening in the near future. We are awaiting acceptance and authorization from [facility]. She is stable. 10/22:Today she is alert and oriented x 3. This is a new occurrence.Records have been transferred over to [facility] inpatient rehab facility in [place]. The way I understand that we are pending insurance authorization for that rehab stay. I consulted with neurology at outside hospital yesterday who endorsed our current plan of care. He feels that the patient would be an excellent rehab candidate and agrees that this may be a stroke which is MRI negative. She is medically clear for discharge today. This is avoidable day #1. 10/21:Continues to have improvements in her mental status and activity tolerance. I have no PT/OT services available today. She will get up and walk with nurses. We are working on placement and she is being considered by [facility] inpatient rehab in [place]. They have requested that we discuss her case with a neurologist. This is because her imaging has actually been negative for stroke. I therefore called Dr. Zarate at [facility] neurology. He is the on-call neurologist today. I discussed her case thoroughly. He feels that it is still quite likely that she had a stroke. There is a such thing as MRI negative strokes. Occasionally there is a stroke that is not seen on the MRI because of the size of it. His recommendation is that she remain on dual antiplatelet therapy for total of 3 weeks. She should then remain on aspirin as antiplatelet therapy indefinitely. He feels that if the therapist agree that she should be going to inpatient rehab that is an appropriate disposition. 10/20: Continuing secondary stroke prevention with aspirin and statin. Her swallowing is improving today. I think that her swallowing is much affected by her fatigue level. She is eager to transition to the next phase of care. Please see discussion of blood pressure management below. MRI of the brain with and without contrast was somewhat limited image quality but no tumor seen. Additionally no CVA is seen. I think clinically this patient has had a stroke. 10/19: Secondary stroke prevention with aspirin, plavix and statin. with right sided neglect and aphasia. Her swallowing ability is variable. She will need speech therapy in the non acute setting due to her aphasia. CT head did not show any bleed. Echocardiogram within normal limits, no concerns. Has been seen by PT and OT and recommendation is for IRF. Permissive HTN for 48 hours. up to SBP 200. . She is getting hydralazine q4h PRN Home meds for HTN have been resumed. The MRI images are of poor quality, but there is not evidence of CVA seen. Therefore, I am adding on to my workup. I wll check TSH,(2.87- this is normal) I am giving her Vit B supplementation. I am checking an ammonia level (also returned as normal-21.9) Additionally I am ordering an MRI of the brain with and without gadolinium. Although the image quality is poor we do not see a CVA on the non contrast scan. Mental status has waxed and waned over the course of the day but she was able to get up out of bed and work with PT. She is getting premedication for contrast allergy prior to MRI of the brain with and without contrast this afternoon/evening. Family is eager to have diagnostic imaging complete. MRI is unable to take the patient until 1700. Discussed CODE STATUS with her family. Her daughter who is a retired RN and her surrogate decision maker (April Pappas) affirms that this patient would like to be full code at this time. Home meds for HTN have been resumed. The MRI images are of poor quality, but there is not evidence of CVA seen. Therefore, I am adding on to my workup. I wll check TSH,(2.87- this is normal) I am giving her Vit B supplementation. I am checking an ammonia level (also returned as normal-21.9) Additionally I am ordering an MRI of the brain with and without gadolinium. Although the image quality is poor we do not see a CVA on the non contrast scan. Mental status has waxed and waned over the course of the day but she was able to get up out of bed and work with PT. She is getting premedication for contrast allergy prior to MRI of the brain with and without contrast this afternoon/evening. Family is eager to have diagnostic imaging complete. MRI is unable to take the patient until 1700. Discussed CODE STATUS with her family again today. Her daughter who is a retired RN and her surrogate decision maker (April Quiross) affirms that this patient would like to be full code at this time. (2) Neutrophilic leukocytosis: Impression: Laboratory Tests 10/21/24 10/22/24 10/23/24 05:41 04:37 07:12 WBC 14.1 H 11.5 H 10.3 No fevers or other indicators of infection or sepsis. She has had ongoing leukocytosis of undetermined origin for some time. Her urinalysis was unremarkable. Now she is complaining of this malaise body aches sore throat and occasional dry cough. Her viral panel is negative for influenza A, B, RSV, COVID. It is possible that her leukocytosis is related to the symptoms. She developed an apthous ulcer yesterday, which I am treating symptomatically. WBC elevation is clearing. (3) Carotid stenosis: Impression: CTA of the head and neck reveals bilateral ICA stenosis of 50-69%. This indicates the need for vascular surgery consultation in consideration of carotid enarterectomy/stenting for secondary stroke prevention. This can be completed in the outpatient environment. After my discussion with neurology, I am recommending Plavix for duration of 21 days and then as recommended by vascular surgery. This should be an outpatient consultation. (4) Type 2 diabetes mellitus: Impression: 02/18/24 reading was 5.4%. 10/19/24 05:20 Hemoglobin A1c % 7.5 H Home diabetic regimen is glimepiride 3 mg daily. She is not on metformin. While she is here we have placed her on sliding scale insulin. added Glargine insulin for better blood sugar control. She needs better control of her diabetes. The glargine seems to be effective. . We will continue to monitor her blood sugars and adjust insulin regimen as indicated. She daughter, Valeri is not in favor of metformin. (5) Hypertension: Impression: permissive HTN after CVA for 48 hours. Home meds are resumed. Cozaar 25 mg daily. I have increased this to 50 mg daily as I think she needs slightly better control of her blood pressure. This has been adequately effective. (6) Hyperlipidemia: Impression: On Crestor at home, has been started on atorvastatin here. I am concerned about her body aches. I wonder if this is due to statin. I will see if these resolve as her illness progresses or if they persist. (7) Hyperkalemia: Impression: Normalized There is some hyperkalemia associated with ARB use. Laboratory Tests 10/21/24 10/22/24 10/23/24 05:41 04:37 07:12 Potassium 4.1 4.5 4.4 (8) Hyponatremia: Impression: resolved. Laboratory Tests 10/22/24 10/23/24 04:37 07:12 Sodium 138 138 ALLERGIES Allergies Allergy/AdvReac Type Severity Reaction Status Date / Time colchicine Allergy Severe Diarrhea Verified 07/11/24 12:52 Penicillins Allergy Intermediate Rash/Swelli Verified 07/11/24 12:52 ng sulfamethoxazole (From Allergy Intermediate Rash Verified 07/11/24 12:52 Bactrim) trimethoprim (From Bactrim) Allergy Intermediate Rash Verified 07/11/24 12:52 Gadolinium-Containing AdvReac Severe Nausea/Vomi Verified 07/11/24 12:52 Contrast Medi ting MEDICATIONS Ambulatory Orders Medication Instructions Recorded Confirmed bupropion HCl 150 mg 24 hr tablet, 150 mg PO DAILY 03/01/19 10/18/24 extended release allopurinol 100 mg tablet 100 mg PO DAILY 07/11/24 10/18/24 buspirone 10 mg tablet 10 mg PO DAILY 07/11/24 10/18/24 glimepiride 2 mg tablet 3 mg PO 0800 07/11/24 10/18/24 valsartan 40 mg tablet (Diovan) 40 mg PO DAILY 07/11/24 10/18/24 nebivolol 5 mg tablet 5 mg PO DAILY 07/12/24 10/18/24 acetaminophen 650 mg 650 mg PO Q6HR PRN pain 10/18/24 10/18/24 tablet,extended release (8 Hour Pain Reliever) escitalopram oxalate 20 mg tablet 20 mg PO DAILY 10/18/24 10/18/24 omeprazole 20 mg capsule,delayed 20 mg PO BID 10/18/24 10/18/24 release rosuvastatin 10 mg tablet 10 mg PO QPM 10/18/24 10/18/24 LABS 10/23/24 07:12 10/23/24 07:12 FOLLOW UP Follow Up: PCP Valerie Gonzalez (switching from Sylvia Flores) on discharge from rehab. Needs to have outpatient Neurology consultation and vascular surgery consultation for stroke and carotid stenosis. Discharge Plan Discharge Condition: Serious Prescriptions: No Action bupropion HCl 150 MG tablet extended release 24 hr 150 mg PO DAILY allopurinol 100 MG tablet 100 mg PO DAILY Patient Comments: TAKE ONE TABLET BY MOUTH ONE TIME DAILY glimepiride 2 MG tablet 3 mg PO 0800 buspirone 10 MG tablet 10 mg PO DAILY Patient Comments: TAKE ONE TABLET BY MOUTH ONE TIME DAILY valsartan [Diovan] 40 MG tablet 40 mg PO DAILY nebivolol 5 MG tablet 5 mg PO DAILY Patient Comments: TAKE ONE TABLET BY MOUTH ONE TIME DAILY escitalopram oxalate 20 mg tablet 20 mg PO DAILY acetaminophen [8 Hour Pain Reliever] 650 mg tablet extended release 650 mg PO Q6HR PRN (Reason: pain) omeprazole 20 mg capsule,delayed release(DR/EC) 20 mg PO BID Patient Comments: TAKE ONE CAPSULE BY MOUTH TWICE DAILY rosuvastatin 10 mg tablet 10 mg PO QPM Patient Comments: TAKE ONE TABLET BY MOUTH EVERY EVENING Print Language: Stateless Stand Alone Forms: PCP List"
[2024-10-23 15:16] LABS: BILIRUBIN,URINE NEGATIVE (NEGATIVE); GLUCOSE, URINE (UA) NEGATIVE (NEGATIVE); KETONES,URINE (UA) NEGATIVE (NEGATIVE); LEUKOCYTE ESTERASE, URINE NEGATIVE (NEGATIVE); NITRITE,URINE NEGATIVE (NEGATIVE); OCCULT BLOOD,URINE NEGATIVE (NEGATIVE); PH,URINE 5.5 PH (5.0-7.5); PROTEIN,URINE NEGATIVE (NEGATIVE); UROBILINOGEN,URINE 0.2 (NORMAL) E.U./dL (NORMAL)
[2024-10-23 15:19] LABS: CLARITY,URINE CLEAR (CLEAR)
[2024-10-23 15:40] LABS: BACTERIA,URINE None Seen /HPF (None Seen); RBC,URINE 0-5 /HPF (0-5); SQUAMOUS EPITHELIAL CELL,UR FEW Squamous (<= Few); WBC,URINE 0-3 /HPF (0-5)
[2024-10-23] MEDS: PHENAZOPYRIDINE 100 MG TABLET PO SCH (16:00)
[2024-10-24 05:34] LABS: BASOPHILS # (AUTO) 0.1 10^3/uL (0.0-0.1); BASOPHILS % (AUTO) 0.7 %; EOSINOPHILS # (AUTO) 0.4 10^3/uL (0.0-0.7); EOSINOPHILS % (AUTO) 3.6 %; HCT - HEMATOCRIT 35.7 % (37.0-47.0); HGB - HEMOGLOBIN 11.5 g/dL (12.0-16.0); LYMPHOCYTES # (AUTO) 1.9 10^3/uL (1.5-3.5); LYMPHOCYTES % (AUTO) 17.5 %; MEAN CORPUSCULAR HEMOGLOBIN 29.8 pg (27.0-31.0); MEAN CORPUSCULAR HGB CONC 32.2 g/dL (32.0-36.0); MEAN CORPUSCULAR VOLUME 92.5 fL (81.0-99.0); MEAN PLATELET VOLUME 8.6 fL (7.9-10.8); MONOCYTES # (AUTO) 0.9 10^3/uL (0.0-1.0); MONOCYTES % (AUTO) 8.4 %; NEUTROPHILS # (AUTO) 7.4 10^3/uL (1.5-6.6); NEUTROPHILS % (AUTO) 69.2 %; PLT - PLATELET COUNT 274 10^3/uL (130-450); RED BLOOD COUNT 3.86 10^6/uL (4.20-5.40); RED CELL DISTRIBUTION WIDTH 13.6 % (12.0-15.0); WHITE BLOOD COUNT 10.7 x10^3/uL (4.8-10.8)
[2024-10-24 05:54] LABS: CALCIUM 9.6 mg/dL (8.5-10.3); CREATININE 1.1 mg/dL (0.6-1.3); POTASSIUM 4.5 mmol/L (3.5-4.5)
--- NOTE | 2024-10-24 07:38 | PROVIDER PROGRESS NOTE ---
Subjective Prog Note Date Prog Note Date: 10/24/24 Prog Note Time: 08:47 Subjective Pt reports feeling: No change Subjective: She does not feel the greatest. Feels like she is struggling against depression. I advised her to get up and walk today, spend some time beside the large windows. Otherwise she is ready to go to rehab [facility] Current Medications Current Medications Current Medications: Current Medications Generic Name Dose Route Start Last Admin Trade Name Freq PRN Reason Stop Dose Admin Acetaminophen 650 mg 10/17/24 23:31 10/23/24 17:02 Acetaminophen 325 Mg Tablet PO 650 mg Q4HR PRN Administration Pain 1 to 4, or Fever Aspirin 325 mg 10/18/24 09:00 10/23/24 08:09 Aspirin Ec 325 Mg Tablet PO 325 mg DAILY KAREN Administration Atorvastatin Calcium 40 mg 10/18/24 09:00 10/23/24 08:09 Atorvastatin 40 Mg Tablet PO 40 mg DAILY KAREN Administration Bupropion HCl 150 mg 10/18/24 09:00 10/23/24 08:09 Bupropion Xl 150 Mg Tablet PO 150 mg DAILY KAREN Administration Buspirone HCl 5 mg 10/22/24 21:00 10/23/24 21:56 Buspirone 5 Mg Tablet PO 5 mg BID KAREN Administration Clopidogrel Bisulfate 75 mg 10/19/24 09:00 10/23/24 08:10 Clopidogrel 75 Mg Tablet PO 75 mg DAILY KAREN Administration Cyclobenzaprine HCl 10 mg 10/18/24 12:45 10/19/24 18:43 Cyclobenzaprine 10 Mg Tablet PO 10 mg TID PRN Administration Spasms Escitalopram Oxalate 20 mg 10/18/24 09:00 10/23/24 08:10 Escitalopram 10 Mg Tablet PO 20 mg DAILY KAREN Administration Glimepiride 3 mg 10/18/24 08:00 10/23/24 08:09 Glimepiride 2 Mg Tablet PO 3 mg 0800 KAREN Administration Guaifenesin 10 ml 10/22/24 11:59 Guaifenesin/Dextromethorphan 10 Ml Udc PO Q6HR PRN Cough Heparin Sodium (Porcine) 5,000 unit 10/18/24 09:00 10/23/24 21:55 Heparin 5,000 Unit/Ml Vial SUBQ 5,000 unit BID KAREN Administration Hydromorphone HCl 0.5 mg 10/18/24 17:20 Hydromorphone 0.5 Mg/0.5 Ml Syringe IVP Q2H PRN Severe Pain (Level 7-10) Insulin Glargine-yfgn 10 unit 10/20/24 09:00 10/23/24 08:13 Insulin Glargine-Yfgn 300 Unit/3 Ml Pen SUBQ 10 unit DAILY KAREN Administration Insulin Human Lispro 1 - 5 unit 10/19/24 17:00 10/23/24 21:55 Insulin Lispro 300 Unit/3 Ml Pen SUBQ 2 unit 0800,1200,1700,2100 KAREN Administration Protocol Labetalol HCl 10 mg 10/18/24 03:39 10/18/24 04:01 Labetalol 20 Mg/4 Ml Syringe IVP 10 mg Q6H PRN Administration hypertension Lidocaine 1 patch 10/17/24 23:31 Lidocaine Patch 4% TOP DAILY PRN Neck pain Losartan Potassium 50 mg 10/21/24 09:00 10/23/24 08:10 Losartan 50 Mg Tablet PO 50 mg DAILY KAREN Administration Multi-Ingredient Mouthwash/Gargle 30 ml 10/22/24 15:06 10/23/24 08:10 Magic Mouthwash 120 Ml Bottle PO 30 ml Q4H PRN Administration Mouth Sore Pain Multivitamins/Minerals 1 tab 10/20/24 08:00 10/23/24 08:10 Multivitamin W/Minerals Tablet PO 1 tab DAILYWM KAREN Administration Ondansetron HCl 4 mg 10/17/24 23:31 10/18/24 05:03 Ondansetron 4 Mg/2 Ml Vial IVP 4 mg Q6HR PRN Administration Nausea / Vomiting Pantoprazole Sodium 40 mg 10/18/24 09:00 10/23/24 21:56 Pantoprazole 40 Mg Tablet PO 40 mg BID KAREN Administration Nebivolol 5 Mg 1 each 10/18/24 09:00 10/23/24 08:11 Tablet PO 1 each DAILY KAREN Administration Phenazopyridine HCl 100 mg 10/23/24 15:00 10/24/24 06:13 Phenazopyridine 100 Mg Tablet PO 10/25/24 13:59 100 mg TID KAREN Administration Sodium Chloride 10 ml 10/17/24 23:31 10/23/24 06:00 Sodium Chloride Flush 0.9% 10 Ml Syringe IVP 10 ml PRN PRN Administration NEEDED PER PROVIDER ORDERS Sodium Chloride 10 ml 10/18/24 01:00 10/24/24 00:13 Sodium Chloride Flush 0.9% 10 Ml Syringe IVP 10 ml 0100,0900,1700 KAREN Administration Thiamine HCl 100 mg 10/19/24 09:00 10/23/24 08:09 Thiamine 100 Mg Tablet PO 100 mg DAILY KAREN Administration Objective Vital Signs/Intake & Output Reviewed Vital Signs: Yes Vital Signs: Vital Signs x48h Temp Pulse Resp BP Pulse Ox 10/24/24 00:00 36.6 C 68 20 162/73 H 96 Intake & Output: Intake & Output 10/21/24 10/22/24 10/23/24 10/24/24 23:59 23:59 23:59 23:59 Intake Total 1200 / 1200 830 / 830 1770 / 1770 400 / 400 Output Total 1900 / 1900 3225 / 3225 2025 / 2025 1825 / 1825 Balance -700 / -700 -2395 / -2395 -255 / -255 -1425 / -1425 Objective General Appearance: positive No acute distress and Alert Eyes Bilateral: positive Normal inspection and PERRL ENT: positive ENT inspection nml and Oral lesions (right side of lower lip, inner aspect, 7mm apthous ulceration) Neck: positive Nml inspection Respiratory: positive No respiratory distress and Breath sounds nml Cardiovascular: positive Regular rate & rhythm Abdomen: positive No distention Skin: positive Color nml Extremities: positive No pedal edema Neurologic/Psychiatric: positive Oriented x3 and Other (flattening of the right nasolabial fold) Lab Results 10/24/24 05:27 10/24/24 05:27 Other Labs: Lab Results x24hrs 10/24/24 10/23/24 10/23/24 Range/Units 05:27 20:36 16:38 WBC 10.7 (4.8-10.8) x10^3/uL RBC 3.86 L (4.20-5.40) 10^6/uL Hgb 11.5 L (12.0-16.0) g/dL Hct 35.7 L (37.0-47.0) % MCV 92.5 (81.0-99.0) fL MCH 29.8 (27.0-31.0) pg MCHC 32.2 (32.0-36.0) g/dL RDW 13.6 (12.0-15.0) % Plt Count 274 (130-450) 10^3/uL MPV 8.6 (7.9-10.8) fL Neut # (Auto) 7.4 H (1.5-6.6) 10^3/uL Lymph # (Auto) 1.9 (1.5-3.5) 10^3/uL [place] # (Auto) 0.9 (0.0-1.0) 10^3/uL Eos # (Auto) 0.4 (0.0-0.7) 10^3/uL Baso # (Auto) 0.1 (0.0-0.1) 10^3/uL Absolute Nucleated RBC 0.00 x10^3/uL Nucleated RBC % 0.0 /100WBC Lupus Anticoag aPTT (0.0-43.5) sec Dil Сегрей Viper Venom (0.0-47.0) sec Lupus Anticoag Interp (.) Sodium 137 (135-145) mmol/L Potassium 4.5 (3.5-4.5) mmol/L Chloride 105 (101-111) mmol/L Carbon Dioxide 26 (21-32) mmol/L Anion Gap 6.0 (6-13) BUN 28 H (6-20) mg/dL Creatinine 1.1 (0.6-1.3) mg/dL Estimated GFR (MDRD) 48 L (>89) Glucose 110 H (74-104) mg/dL POC Whole Bld Glucose 216 166 (70-100) mg/dL Calcium 9.6 (8.5-10.3) mg/dL Urine Color Urine Clarity (CLEAR) Urine pH (5.0-7.5) PH Ur Specific [place] (1.002-1.030) Urine Protein (NEGATIVE) mg/dL Urine Glucose (UA) (NEGATIVE) mg/dL Urine Ketones (NEGATIVE) mg/dL Urine Occult Blood (NEGATIVE) Urine Nitrite (NEGATIVE) Urine Bilirubin (NEGATIVE) Urine Urobilinogen (NORMAL) E.U./dL Ur Leukocyte Esterase (NEGATIVE) Urine RBC (0-5) /HPF Urine WBC (0-5) /HPF Ur Squamous Epith Cells (<= Few) Urine Bacteria (None Seen) /HPF Urine Culture Comments 10/23/24 10/23/24 10/23/24 Range/Units 14:30 11:31 07:42 WBC (4.8-10.8) x10^3/uL RBC (4.20-5.40) 10^6/uL Hgb (12.0-16.0) g/dL Hct (37.0-47.0) % MCV (81.0-99.0) fL MCH (27.0-31.0) pg MCHC (32.0-36.0) g/dL RDW (12.0-15.0) % Plt Count (130-450) 10^3/uL MPV (7.9-10.8) fL Neut # (Auto) (1.5-6.6) 10^3/uL Lymph # (Auto) (1.5-3.5) 10^3/uL [place] # (Auto) (0.0-1.0) 10^3/uL Eos # (Auto) (0.0-0.7) 10^3/uL Baso # (Auto) (0.0-0.1) 10^3/uL Absolute Nucleated RBC x10^3/uL Nucleated RBC % /100WBC Lupus Anticoag aPTT (0.0-43.5) sec Dil Сергей Viper Venom (0.0-47.0) sec Lupus Anticoag Interp (.) Sodium (135-145) mmol/L Potassium (3.5-4.5) mmol/L Chloride (101-111) mmol/L Carbon Dioxide (21-32) mmol/L Anion Gap (6-13) BUN (6-20) mg/dL Creatinine (0.6-1.3) mg/dL Estimated GFR (MDRD) (>89) Glucose (74-104) mg/dL POC Whole Bld Glucose 168 105 (70-100) mg/dL Calcium (8.5-10.3) mg/dL Urine Color YELLOW Urine Clarity CLEAR (CLEAR) Urine pH 5.5 (5.0-7.5) PH Ur Specific [place] 1.010 (1.002-1.030) Urine Protein NEGATIVE (NEGATIVE) mg/dL Urine Glucose (UA) NEGATIVE (NEGATIVE) mg/dL Urine Ketones NEGATIVE (NEGATIVE) mg/dL Urine Occult Blood NEGATIVE (NEGATIVE) Urine Nitrite NEGATIVE (NEGATIVE) Urine Bilirubin NEGATIVE (NEGATIVE) Urine Urobilinogen 0.2 (NORMAL) (NORMAL) E.U./dL Ur Leukocyte Esterase NEGATIVE (NEGATIVE) Urine RBC 0-5 (0-5) /HPF Urine WBC 0-3 (0-5) /HPF Ur Squamous Epith Cells FEW Squamous (<= Few) Urine Bacteria None Seen (None Seen) /HPF Urine Culture Comments NOT INDICATED 10/23/24 10/18/24 Range/Units 07:12 09:01 WBC 10.3 (4.8-10.8) x10^3/uL RBC 3.97 L (4.20-5.40) 10^6/uL Hgb 11.9 L (12.0-16.0) g/dL Hct 36.8 L (37.0-47.0) % MCV 92.7 (81.0-99.0) fL MCH 30.0 (27.0-31.0) pg MCHC 32.3 (32.0-36.0) g/dL RDW 13.6 (12.0-15.0) % Plt Count 283 (130-450) 10^3/uL MPV 8.8 (7.9-10.8) fL Neut # (Auto) 6.9 H (1.5-6.6) 10^3/uL Lymph # (Auto) 2.0 (1.5-3.5) 10^3/uL [place] # (Auto) 0.9 (0.0-1.0) 10^3/uL Eos # (Auto) 0.4 (0.0-0.7) 10^3/uL Baso # (Auto) 0.1 (0.0-0.1) 10^3/uL Absolute Nucleated RBC 0.00 x10^3/uL Nucleated RBC % 0.0 /100WBC Lupus Anticoag aPTT 23.5 (0.0-43.5) sec Dil Сергей Viper Venom 29.8 (0.0-47.0) sec Lupus Anticoag Interp Comment: (.) Sodium 138 (135-145) mmol/L Potassium 4.4 (3.5-4.5) mmol/L Chloride 107 (101-111) mmol/L Carbon Dioxide 24 (21-32) mmol/L Anion Gap 7.0 (6-13) BUN 30 H (6-20) mg/dL Creatinine 1.2 (0.6-1.3) mg/dL Estimated GFR (MDRD) 43 L (>89) Glucose 107 H (74-104) mg/dL POC Whole Bld Glucose (70-100) mg/dL Calcium 9.4 (8.5-10.3) mg/dL Urine Color Urine Clarity (CLEAR) Urine pH (5.0-7.5) PH Ur Specific [place] (1.002-1.030) Urine Protein (NEGATIVE) mg/dL Urine Glucose (UA) (NEGATIVE) mg/dL Urine Ketones (NEGATIVE) mg/dL Urine Occult Blood (NEGATIVE) Urine Nitrite (NEGATIVE) Urine Bilirubin (NEGATIVE) Urine Urobilinogen (NORMAL) E.U./dL Ur Leukocyte Esterase (NEGATIVE) Urine RBC (0-5) /HPF Urine WBC (0-5) /HPF Ur Squamous Epith Cells (<= Few) Urine Bacteria (None Seen) /HPF Urine Culture Comments Assessment/Plan Problem List (1) Acute CVA (cerebrovascular accident): Impression: 10/24: Stable, no changes. Awaiting IRF. 10/23: headache overnight without mental status changes. She is alert and oriented this AM. She and I had a complex conversation this morning regarding her daughters and how she feels about their adult lives and the way she mothered them. She has some anxiety regarding the changes that have happened as a result of this hopsital stay, and what changes are happening in the near future. We are awaiting acceptance and authorization from IRF. She is stable. Today is her second avoidable day due to awaiting rehab placement. 10/22:Today she is alert and oriented x 3. This is a new occurrence.Records have been transferred over to [facility] inpatient rehab facility in [place]. The way I understand that we are pending insurance authorization for that rehab stay. I consulted with neurology at outside hospital yesterday who endorsed our current plan of care. He feels that the patient would be an excellent rehab candidate and agrees that this may be a stroke which is MRI negative. She is medically clear for discharge today. This is avoidable day #1. 10/21:Continues to have improvements in her mental status and activity tolerance. I have no PT/OT services available today. She will get up and walk with nurses. We are working on placement and she is being considered by [facility] inpatient rehab in [place]. They have requested that we discuss her case with a neurologist. This is because her imaging has actually been negative for stroke. I therefore called Dr. Zarate at [facility] neurology. He is the on-call neurologist today. I discussed her case thoroughly. He feels that it is still quite likely that she had a stroke. There is a such thing as MRI negative strokes. Occasionally there is a stroke that is not seen on the MRI because of the size of it. His recommendation is that she remain on dual antiplatelet therapy for total of 3 weeks. She should then remain on aspirin as antiplatelet therapy indefinitely. He feels that if the therapist agree that she should be going to inpatient rehab that is an appropriate disposition. 10/20: Continuing secondary stroke prevention with aspirin and statin. Her swallowing is improving today. I think that her swallowing is much affected by her fatigue level. She is eager to transition to the next phase of care. Please see discussion of blood pressure management below. MRI of the brain with and without contrast was somewhat limited image quality but no tumor seen. Additionally no CVA is seen. I think clinically this patient has had a stroke. 10/19: Secondary stroke prevention with aspirin, plavix and statin. with right sided neglect and aphasia. Her swallowing ability is variable. She will need speech therapy in the non acute setting due to her aphasia. CT head did not show any bleed. Echocardiogram within normal limits, no concerns. Has been seen by PT and OT and recommendation is for IRF. Permissive HTN for 48 hours. up to SBP 200. . She is getting hydralazine q4h PRN Selected Entries 10/19/24 00:14 10/19/24 00:30 10/19/24 00:46 Blood Pressure Blood Pressure [Left Brachial artery] 167/96 H 180/83 H 174/96 H 10/19/24 01:03 10/19/24 01:07 10/19/24 05:00 Blood Pressure 177/91 H Blood Pressure [Left Brachial artery] 177/91 H 165/99 H 10/19/24 08:49 Blood Pressure Blood Pressure [Left Brachial artery] 152/91 H Home meds for HTN have been resumed. The MRI images are of poor quality, but there is not evidence of CVA seen. Therefore, I am adding on to my workup. I wll check TSH,(2.87- this is normal) I am giving her Vit B supplementation. I am checking an ammonia level (also returned as normal-21.9) Additionally I am ordering an MRI of the brain with and without gadolinium. Although the image quality is poor we do not see a CVA on the non contrast scan. Mental status has waxed and waned over the course of the day but she was able to get up out of bed and work with PT. She is getting premedication for contrast allergy prior to MRI of the brain with and without contrast this afternoon/evening. Family is eager to have diagnostic imaging complete. MRI is unable to take the patient until 1700. Discussed CODE STATUS with her family again today. Her daughter who is a retired RN and her surrogate decision maker (April Pappas) affirms that this patient would like to be full code at this time. (2) Neutrophilic leukocytosis: Impression: 2 No fevers or other indicators of infection or sepsis. She had ongoing leukocytosis of undetermined origin for some time. Her urinalysis was unremarkable. Her viral panel is negative for influenza A, B, RSV, COVID. Leukocytosis is resolved. She had some dysuria 10/23 with a negative urinalysis. I have placed her on Pyridium for symptomatic dysuria. (3) Carotid stenosis: Impression: CTA of the head and neck reveals bilateral ICA stenosis of 50-69%. This indicates the need for vascular surgery consultation in consideration of carotid enarterectomy/stenting for secondary stroke prevention. This can be completed in the outpatient environment. After my discussion with neurology, I am recommending Plavix for duration of 21 days and then as recommended by vascular surgery. This should be an outpatient consultation. Qualifiers: Laterality: bilateral Qualified Code(s): I65.23 - Occlusion and stenosis of bilateral carotid arteries (4) Dysuria: Impression: UA was negative 10/23. pyridium as needed for symptoms (5) Type 2 diabetes mellitus: Impression: 02/18/24 reading was 5.4%. Laboratory Tests 10/19/24 05:20 Hemoglobin A1c % 7.5 H Selected Entries 10/23/24 17:02 10/23/24 21:55 10/24/24 08:22 Result (mg/dL) 166 216 124 Home diabetic regimen is glimepiride 3 mg daily. She is not on metformin. While she is here we have placed her on sliding scale insulin. added Glargine insulin for better blood sugar control. She needs better control of her diabetes. The glargine seems to be effective. . We will continue to monitor her blood sugars and adjust insulin regimen as indicated. She daughter, Valeri is not in favor of metformin. Qualifiers: Diabetes mellitus complication status: with hyperglycemia Diabetes mellitus custodial insulin use: without intermodal dispatcher use Qualified Code(s): E11.65 - Type 2 diabetes mellitus with hyperglycemia (6) Hypertension: Impression: permissive HTN after CVA for 48 hours. Home meds are resumed. Cozaar 25 mg daily. I have increased this to 50 mg daily as I think she needs slightly better control of her blood pressure. This has been adequately effective. Selected Entries 10/23/24 17:38 10/24/24 00:00 10/24/24 13:23 Blood Pressure [Left Brachial artery] 173/90 H 162/73 H Blood Pressure [Right Brachial artery] 122/65 10/24/24 15:48 Blood Pressure [Left Brachial artery] Blood Pressure [Right Brachial artery] 119/55 L Qualifiers: Hypertension type: primary hypertension Qualified Code(s): I10 - Essential (primary) hypertension (7) Hyperlipidemia: Impression: On Crestor at home, has been started on atorvastatin here. I am concerned about her body aches. I wonder if this is due to statin. I will see if these resolve as her illness progresses or if they persist. Qualifiers: Hyperlipidemia type: unspecified Qualified Code(s): E78.5 - Hyperlipidemia, unspecified (8) Hyperkalemia: Impression: Normalized Daily BMP. There is some hyperkalemia associated with ARB use. Laboratory Tests 10/21/24 10/22/24 10/23/24 05:41 04:37 07:12 Potassium 4.1 4.5 4.4 (9) Hyponatremia: Impression: resolved. Laboratory Tests 10/22/24 10/23/24 04:37 07:12 Sodium 138 138 continue to check BMP in the AM. I have spent 28 minutes in the care of this patient today. This includes time [id number], review and ordering of diagnostic imaging and laboratory studies. Monitoring the patient's signs symptoms, evaluation of medication effectiveness and patient's response to treatment.
[2024-10-25 05:32] LABS: BASOPHILS # (AUTO) 0.1 10^3/uL (0.0-0.1); BASOPHILS % (AUTO) 0.6 %; EOSINOPHILS # (AUTO) 0.4 10^3/uL (0.0-0.7); EOSINOPHILS % (AUTO) 3.3 %; HCT - HEMATOCRIT 34.9 % (37.0-47.0); HGB - HEMOGLOBIN 11.4 g/dL (12.0-16.0); LYMPHOCYTES # (AUTO) 1.8 10^3/uL (1.5-3.5); LYMPHOCYTES % (AUTO) 16.7 %; MEAN CORPUSCULAR HEMOGLOBIN 29.9 pg (27.0-31.0); MEAN CORPUSCULAR HGB CONC 32.7 g/dL (32.0-36.0); MEAN CORPUSCULAR VOLUME 91.6 fL (81.0-99.0); MEAN PLATELET VOLUME 8.8 fL (7.9-10.8); MONOCYTES # (AUTO) 1.1 10^3/uL (0.0-1.0); MONOCYTES % (AUTO) 10.2 %; NEUTROPHILS # (AUTO) 7.4 10^3/uL (1.5-6.6); NEUTROPHILS % (AUTO) 68.6 %; PLT - PLATELET COUNT 279 10^3/uL (130-450); RED BLOOD COUNT 3.81 10^6/uL (4.20-5.40); RED CELL DISTRIBUTION WIDTH 13.8 % (12.0-15.0); WHITE BLOOD COUNT 10.8 x10^3/uL (4.8-10.8)
[2024-10-25 05:56] LABS: CALCIUM 9.8 mg/dL (8.5-10.3); CREATININE 1.1 mg/dL (0.6-1.3); POTASSIUM 4.9 mmol/L (3.5-4.5)
--- NOTE | 2024-10-25 11:30 | Discharge Summary ---
"Discharge Summary Admit Date: 10/17/24 Discharge Date: 10/25/24 Discharging Provider: Aubrey Hernadez NP Primary Care Provider: Sylvia Flores Code Status: Attempt Resuscitation DIAGNOSES Admission Diagnoses: Acute ischemic stroke Hypertension Diabetes mellitus Discharge Diagnoses with Status of Each Condition: Acute ischemic stroke - active Leukocytosisresolved Carotid stenosischronic Dysuriaresolved Diabetes mellituschronic Hypertensionchronic Hyperlipidemiachronic Hyperkalemiaresolved Hyponatremiaresolved HPI History of Present Illness: Mrs. Dash is a 79yo F with a history of hypertension and diabetes. She presented to the ED with acute confusion that started the day on presentation. The exact time was uncertain, as her could not specify when he noticed the changes. The patient's daughter saw her around 7pm and noticed that she was confused and speaking jibberish. In the ED, evaluation noted that patient had expressive aphasia, it appeared as if she understood question,but would have difficulty finding words or would respond with a word salad. She also exhibited right sided neglect. She had Full range of motion of her upper and lower extremities and did not have any visual field deficits or gaze palsy upon arrival to the Ed. Workup including CT and CTA were negative for acute abnormalities. Teleneurology did not feel she was a tPA candidate due to the onset of time being unknown. After my discussion with the ED physician and the patient, I will admit the patient for further evaluation of her persistent symptoms and complete her evaluation for an acute stroke. Patient was seen at bedside, I discussed plan of care and goal of admission with patient adn her daughter at bedside. They agreed to being admitted for further stroke evaluation. I completed this visit utilizing tele-health tools including phone and live video. Informed consent was obtained from the patient and family to proceed with this telemedicine visit. CONSULTS | PROCEDURES Consultations: Teleneurology HOSPITAL COURSE Hospital Course: She was admitted for continued stroke workup. MRI was performed and found to be negative but imaging was poor. She was initiated on dual antiplatelet therapy. PT/OT saw her and recommended SNF placement. She was informed that [facility] inpatient rehab in [place] is not a possible discharge, so she wishes to return home. She is being sent home to live with her with home health PT/OT/ST/RN/SW/bath aide. She has been instructed to follow-up with primary care after discharge. She will need outpatient consultation with neurology and with vascular surgery as she has significant carotid stenosis ALLERGIES Allergies Allergy/AdvReac Type Severity Reaction Status Date / Time colchicine Allergy Severe Diarrhea Verified 07/11/24 12:52 Penicillins Allergy Intermediate Rash/Swelli Verified 07/11/24 12:52 ng sulfamethoxazole (From Allergy Intermediate Rash Verified 07/11/24 12:52 Bactrim) trimethoprim (From Bactrim) Allergy Intermediate Rash Verified 07/11/24 12:52 Gadolinium-Containing AdvReac Severe Nausea/Vomi Verified 07/11/24 12:52 Contrast Medi ting MEDICATIONS Ambulatory Orders Medication Instructions Recorded Confirmed bupropion HCl 150 mg 24 hr tablet, 150 mg PO DAILY 03/01/19 10/18/24 extended release allopurinol 100 mg tablet 100 mg PO DAILY 07/11/24 10/18/24 buspirone 10 mg tablet 10 mg PO DAILY 07/11/24 10/18/24 glimepiride 2 mg tablet 3 mg PO 0800 07/11/24 10/18/24 valsartan 40 mg tablet (Diovan) 40 mg PO DAILY 07/11/24 10/18/24 nebivolol 5 mg tablet 5 mg PO DAILY 07/12/24 10/18/24 acetaminophen 650 mg 650 mg PO Q6HR PRN pain 10/18/24 10/18/24 tablet,extended release (8 Hour Pain Reliever) escitalopram oxalate 20 mg tablet 20 mg PO DAILY 10/18/24 10/18/24 omeprazole 20 mg capsule,delayed 20 mg PO BID 10/18/24 10/18/24 release rosuvastatin 10 mg tablet 10 mg PO QPM 10/18/24 10/18/24 aspirin 325 mg tablet,delayed 325 mg PO DAILY 30 days #30 tabs 10/25/24 release atorvastatin 40 mg tablet 40 mg PO DAILY 30 days #30 tabs 10/25/24 clopidogrel 75 mg tablet 75 mg PO DAILY 21 days #21 tabs 10/25/24 PHYSICAL EXAM AT DISCHARGE General Appearance: positive No acute distress and Alert Eyes Bilateral: positive Normal inspection ENT: positive ENT inspection nml Neck: positive Nml inspection Respiratory: positive Chest non-tender Cardiovascular: positive Regular rate & rhythm Peripheral Pulses: positive 2+ Abdomen: positive Non-tender Back: positive Nml inspection Skin: positive Color nml Extremities: positive Non-tender Neurologic/Psychiatric: positive Oriented x3 LABS 10/25/24 05:16 10/25/24 05:16 DIAGNOSTIC IMAGING Diagnostic Imaging Results Comments: MRI brain on 10/19/2024 with no acute stroke within the limits of motion artifact CT head no acute infarct CTA head and neck: At least 50 to 69% stenosis of the bilateral proximal ICA SEPSIS Current Stage of Sepsis: Ruled out FOLLOW UP Follow Up: With PCP Will need outpatient consultation with vascular surgery and with neurology TIME SPENT Time Spent in Discharge (Minutes): 40 Discharge Plan Discharge Patient Disposition: Home, Self Care Condition: Stable Medically Cleared Date:: 10/25/24 Prescriptions: New aspirin 325 mg Tablet,Delayed Release (Dr/Ec) 325 mg PO DAILY 30 Days Qty: 30 0RF atorvastatin 40 mg Tablet 40 mg PO DAILY 30 Days Qty: 30 0RF clopidogrel 75 mg Tablet 75 mg PO DAILY 21 Days Qty: 21 0RF Continued bupropion HCl 150 MG tablet extended release 24 hr 150 mg PO DAILY allopurinol 100 MG tablet 100 mg PO DAILY Patient Comments: TAKE ONE TABLET BY MOUTH ONE TIME DAILY glimepiride 2 MG tablet 3 mg PO 0800 buspirone 10 MG tablet 10 mg PO DAILY Patient Comments: TAKE ONE TABLET BY MOUTH ONE TIME DAILY valsartan [Diovan] 40 MG tablet 40 mg PO DAILY nebivolol 5 MG tablet 5 mg PO DAILY Patient Comments: TAKE ONE TABLET BY MOUTH ONE TIME DAILY escitalopram oxalate 20 mg tablet 20 mg PO DAILY acetaminophen [8 Hour Pain Reliever] 650 mg tablet extended release 650 mg PO Q6HR PRN (Reason: pain) omeprazole 20 mg capsule,delayed release(DR/EC) 20 mg PO BID Patient Comments: TAKE ONE CAPSULE BY MOUTH TWICE DAILY rosuvastatin 10 mg tablet 10 mg PO QPM Patient Comments: TAKE ONE TABLET BY MOUTH EVERY EVENING Activity Restrictions: No Restrictions Health Concerns: You are a 79-year-old female with past medical history significant for hypertension and diabetes. You presented to the ED with acute confusion. You were worked up in the ER with a CT of your head and CT angiogram of your head and neck which were negative for acute abnormalities. You were admitted to the hospital for continued stroke workup. Your MRI was also negative. We discussed your case with a neurologist at an outside hospital, who says that this could be a stroke with no MRI evidence. They recommend that you take 3 weeks of dual antiplatelet therapy with aspirin and Plavix, after which she will de-escalate to just aspirin. I also recommend high-dose statin. Your CT angiogram on admission showed a 50 to 69% stenosis of the right internal carotid, and 50 to 69% stenosis of the left proximal internal carotid Your new meds: Aspirin 325 mg by mouth daily Plavix 75 mg By mouth daily for 3 weeks Lipitor 40 mg p.o. daily Aspirin and Lipitor will continue Until discontinued by your primary care provider Care Plan Goals: Participate with physical therapy in the inpatient rehab setting until you can establish a new normal for your activity level. Take medications as prescribed Assessment: Patient is a high fall risk given cognitive impairments from the stroke. Physical therapy has recommended SNF placement. Per PT, she requires minimum assistance and front wheel walker but does need fall risk precautions. Patient understands medication regimen and is going to a SNF which will help with compliance. She is to follow-up with primary care provider within 2 weeks. Will also need neurology and vascular surgery outpatient consults Plan of Treatment: New medications aspirin 325 mg p.o. daily Lipitor 40 mg p.o. daily Plavix 75 mg p.o. daily x 3 weeks Work with PT to establish new baseline activity level Follow-up with PCP within 2 weeks. You also need to see a neurologist and a vascular surgeon. Your primary care provider can set you up for this Report any new neurological disturbances to healthcare provider Print Language: Nigerien Patient Instructions: Stroke Dc Stand Alone Forms: PCP List"
[2024-10-25 12:23] VITALS: BP 162/76; TEMP 97.9; O2SAT 95
== END 2024-10-25 14:06 | disposition home or self-care (01) | DRG 65 ==
LOC: ED 19:57 → MS2 19:57
PROVIDERS: ADMIT Hospitalist; ATTEND Hospitalist
DX: I63.9 Cerebral infarction, unspecified; D72.828 Other elevated white blood cell count; J84.112 Idiopathic pulmonary fibrosis; F32.A Depression, unspecified; R51.9 Headache, unspecified; R41.89 Other symptoms and signs involving cognitive functions and awareness; E87.5 Hyperkalemia; Z87.891 Personal history of nicotine dependence; H35.30 Unspecified macular degeneration; R47.01 Aphasia; E87.1 Hypo-osmolality and hyponatremia; E11.9 Type 2 diabetes mellitus without complications; J02.9 Acute pharyngitis, unspecified; R53.83 Other fatigue; I10 Essential (primary) hypertension; T44.5X5A Adverse effect of predominantly beta-adrenoreceptor agonists, initial encounter; R13.10 Dysphagia, unspecified; I65.23 Occlusion and stenosis of bilateral carotid arteries; Z79.84 Long term (current) use of oral hypoglycemic drugs; R29.810 Facial weakness; E78.5 Hyperlipidemia, unspecified; R30.0 Dysuria; R41.4 Neurologic neglect syndrome; K12.0 Recurrent oral aphthae; E11.65 Type 2 diabetes mellitus with hyperglycemia